=== PATIENT | male | born 1960 | race Caucasian/White ===

== ENCOUNTER → 2016-05-11 | Outpatient (CLI) | payer BC ==
--- NOTE | 2016-05-11 20:38 | PN ---
DATE OF SERVICE: 05/11/2016 This patient is a 55-year-old gentleman who has been followed in the sleep center for treatment of obstructive sleep apnea/hypopnea syndrome. I discussed results of his sleep studies with the patient in detail. Diagnostic sleep study showed apnea-hypopnea index of 11.7 with 85 episodes of obstructive apneas, 7 episodes of central apneas, and 1 episode of hypopnea, with lowest oxygen level 80%. At present the patient is on treatment with CPAP at the pressure 13 cm of water. At the beginning of treatment, patient did not demonstrate good compliance with treatment. Usage was low. But for the last month he has improved his usage up to 87% of the time with usage for more than 4 hours. I checked the reading from his machine. It shows that in the first half of the last month, the patient had very high apnea-hypopnea indices. In the second part of the last month, there is improvement in the apnea-hypopnea indices for most of the days. For the whole month, apnea-hypopnea index is above normal at 9.5. The patient still feels sleepiness during the day. [place] Sleepiness Scale is 12. I checked the leak from the patient's unit, and in the middle of the last month the leak was increased. At the end of the month there was no significant leak. MEDICATIONS: 1. Lexapro. 2. Wellbutrin. 3. Ritalin. 4. Prilosec. 5. Ambien. 6. Zocor. 7. Allergy medications. During physical exam, patient in no distress. VITAL SIGNS: BP 133/90, HR 72, RR 16. Weight 202. Temperature 98.0. Oxygen saturation at room air 99%. HEENT: PERRLA, EOMI. Evaluation of oropharynx showed extremely low position of soft palate. NECK: Supple. No JVD. Thyroid is not palpable. LUNGS: Clear to percussion and to auscultation. Good air exchange. No wheezing or rhonchi. HEART: S1, S2 regular. No murmurs, gallops or rubs. ABDOMEN: Soft and nontender. Bowel sounds are present. No organomegaly appreciated. EXTREMITIES: No clubbing or cyanosis. SPRING WINDER: Awake, alert, and oriented x3. Cranial nerves 2 to 7 intact. There is no fasciculation or atrophy noted. No focal deficits observed. IMPRESSION: 1. Obstructive sleep apnea/hypopnea syndrome. For the last month patient demonstrated good compliance with treatment. For the first half of the last month, patient continued to have significant respiratory abnormalities, which significantly improved during the second part of the last month, possibly because patient's mask was changed at that time. 2. Patient still continues to have some sleepiness. [place] Sleepiness Scale is 12. 3. Moderate periodic limb movements during titration. 4. Status post uvulopalatopharyngoplasty. 5. History of attention deficit hyperactivity disorder. Patient is on treatment with Ritalin. 6. Overweight. 7. Depression. 8. Acid reflux. 9. Allergies. 10. Hyperlipidemia. 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 PLAN: 1. We will change CPAP unit to ( ) regimen from the pressure of 5 up to the pressure of 18 cm of water. 2. Patient should continue to use equipment every night for the whole night. 3. I will see the patient for follow-up visit in 4 to 6 weeks. 4. No driving if feeling any sleepiness. Thank you very much for allowing me to participate in the management of your patient. Sincerely, Adam Lindsey MD, PhD, FAASM. Diplomat of [place] [employer], Sleep Medicine Board by [employer] [employer], [place] [employer]
== END | disposition home or self-care (01) ==
LOC: SLEEP 15:32
PROVIDERS: ATTEND Internal Medicine
DX: G47.33 Obstructive sleep apnea (adult) (pediatric) (principal); Z79.899 Other long term (current) drug therapy; Z98.890 Other specified postprocedural states; F90.9 Attention-deficit hyperactivity disorder, unspecified type; E66.3 Overweight; F32.9 Major depressive disorder, single episode, unspecified; K21.9 Gastro-esophageal reflux disease without esophagitis; Z91.09 Other allergy status, other than to drugs and biological substances; E78.5 Hyperlipidemia, unspecified

== ENCOUNTER → 2016-06-22 | Outpatient (CLI) | payer BC ==
--- NOTE | 2016-06-22 23:21 | PN ---
DATE OF SERVICE: 06/22/2016 This patient is a 55-year-old gentleman who has been followed in the sleep center for treatment of obstructive sleep apnea/hypopnea syndrome. Before patient was at the pressure of 13 cm of water. At that pressure, apnea-hypopnea index was above normal at 9.5. I changed his regimen to automatic in the range of 5 to 18 cm of water. Today I checked his unit. Usage for more than 4 hours is 17 out of 39, which is slightly below standard recommendations. But with this regimen, most of the time pressure was in the range of 16 cm of water and leak was only 5 L/minute, which is in good range. Apnea-hypopnea index was 6.4, which is close to the good range. Patient used it for 23 out of 30 nights total. He indicates that he feels that the pressure is not enough when he is using the machine. MEDICATIONS: 1. Lexapro. 2. Wellbutrin. 3. Ritalin. 4. Prilosec. 5. Ambien. 6. Zocor. 7. Medications for allergies. PHYSICAL EXAMINATION: Patient in no distress. VITAL SIGNS: BP 116/78, HR 64, RR 16. Weight 202. Temperature 97.8. Oxygen saturation 97%. HEENT: PERRLA, EOMI. Evaluation of oropharynx showed tongue protrudes midline; low position of soft palate. NECK: Supple. No JVD. Thyroid is not palpable. LUNGS: Clear to percussion and to auscultation. Good air exchange. No wheezing or rhonchi. HEART: S1, S2 regular. No murmurs, gallops or rubs. ABDOMEN: Slightly obese. EXTREMITIES: No clubbing or cyanosis. MILLING OPERATOR: Awake, alert, and oriented x3. Cranial nerves 2 to 7 intact. There is no fasciculation or atrophy noted. No focal deficits observed. IMPRESSION: 1. Obstructive sleep apnea/hypopnea syndrome, mostly controlled with the auto regimen. According to the machine, pressure in the range of 16 is the working pressure. Patient is benefitting from treatment. 2. Moderate PLMS. 3. Status post UPPP. 4. History of attention deficit hyperactivity disorder. 5. Depression. 6. Acid reflux. 7. Allergies. 8. Hyperlipidemia. 9. 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 PLAN: 1. I just lowered pressure in the machine to a minimum of 5 up to ( ) 9 cm of water. 2. Patient should continue to use equipment every night for the whole night. Present usage hours is 5.9 hours. Possibly patient may not get enough sleep, so we discussed with him. My recommendation is to sleep at least 7-1/2 hours per night with usage of the machine all the time. 3. No driving if feeling any sleepiness. Thank you very much for allowing me to participate in the management of your patient. Sincerely, Adam Lindsey MD, PhD, FAASM. Diplomat of [place] [employer] [employer], Sleep Medicine Board by [place] [employer], [place] [employer]
== END | disposition home or self-care (01) ==
LOC: SLEEP 15:48
PROVIDERS: ATTEND Internal Medicine
DX: G47.33 Obstructive sleep apnea (adult) (pediatric) (principal); F90.9 Attention-deficit hyperactivity disorder, unspecified type; F32.9 Major depressive disorder, single episode, unspecified; K21.9 Gastro-esophageal reflux disease without esophagitis; Z91.09 Other allergy status, other than to drugs and biological substances; E78.5 Hyperlipidemia, unspecified; Z98.890 Other specified postprocedural states; Z79.899 Other long term (current) drug therapy

== ENCOUNTER → 2017-05-29 | Outpatient (CLI) | payer BC ==
--- NOTE | 2017-05-29 21:31 | CT ---
EXAMINATION TYPE: CT abdomen pelvis w con DATE OF EXAM: 05/29/2017 COMPARISON: 10/01/2015 HISTORY: 56-year-old male Hematuria and LLQ pain TECHNIQUE: Contiguous axial scanning of the abdomen and pelvis following administration of 100 ml Omn ipaque 300 IV contrast. Delayed images through the kidneys and coronal/sagittal reconstructions perf ormed. CT DLP: 1185 mGycm Automated exposure control for dose reduction was used. FINDINGS: Heart normal size without pericardial effusion. Lung bases clear without pleural effusion. There appears to have been prior Reji fundoplication. Annular narrowing of the distal stomach supriya tible with peristalsis. The appearance is improved on the delayed kidney images. No focal liver lesion or biliary ductal dilatation. Portal venous system appears patent. Cholecystectomy clips. Adrenal glands, spleen, and pancreas appear within normal limits. A 1.3 cm cortical hypodensity anterior upper pole right kidney has enlarged slightly from 2016 where it measured 8 mm, still suggestive of a cortical cyst. 2 subcentimeter hypodensities on the right and one on the left seems to be new and are too small for accurate CT characterization but also suggesti ve of cysts. Symmetric uptake and excretion of contrast from both kidneys. No nephrolithiasis seen. Mild atherosclerotic calcifications within the abdominal aorta without aneurysm. No dilated small bowel, free fluid, or free air. A couple right lower quadrant and mid lower mesenteric lymph nodes are borderline enlarged and 7 mm, axial image 55 and 58, larger as compared to 2016. Otherwise, no mesenteric or retroperitoneal lympha denopathy. Oral contrast has progressed to the distal third transverse colon. Mild scattered stool. No pericolon ic inflammatory change. Mild circumferential bladder wall thickening. Prostate gland mildly prominent at 4.3 cm wide. Pelvic phleboliths are noted. No abnormal fluid collection in the pelvis or pelvic lymphadenopathy. Bones: Mild degenerative changes of the hips. Degenerative disc disease lower lumbar spine and endpla te spondylosis lower thoracic spine. No osseous destructive process. IMPRESSION: 1. MILD CIRCUMFERENTIAL BLADDER WALL THICKENING COULD REPRESENT CYSTITIS OR CHRONIC BLADDER WALL HYPE RTROPHY. 2. A 1.3 CM RIGHT UPPER POLE CORTICAL CYST HAS ENLARGED FROM 2016 WHERE IT MEASURED 8 MM. A FEW ADDIT IONAL TINY SUBCENTIMETER HYPODENSITIES ON BOTH SIDES ARE TOO SMALL FOR ACCURATE CT CHARACTERIZATION, ARE NEW FROM 2016, BUT STILL MOST LIKELY REPRESENT CYSTS. 3. A COUPLE NEW BORDERLINE SIZED RIGHT LOWER QUADRANT AND LOWER MID MESENTERIC LYMPH NODES MEASURING UP TO 7 MM LIKELY REACTIVE/POST INFLAMMATORY. A 3 - 6 MONTH FOLLOW-UP CAN BE CONSIDERED A PRECAUTI ONARY MEASURE TO ENSURE STABILITY/RESOLUTION. 4. STATUS POST REJI FUNDOPLICATION AND CHOLECYSTECTOMY.
== END | disposition home or self-care (01) ==
LOC: RADCTMAIN 16:25
PROVIDERS: ATTEND Family Medicine
DX: N28.1 Cyst of kidney, acquired (principal); N32.89 Other specified disorders of bladder; R93.421 Abnormal radiologic findings on diagnostic imaging of right kidney; Z90.49 Acquired absence of other specified parts of digestive tract; Z98.890 Other specified postprocedural states
CPT/HCPCS: 74177; Q9967

== ENCOUNTER → 2017-09-10 | Outpatient (CLI) | payer BC ==
--- NOTE | 2017-09-10 17:40 | MR ---
EXAMINATION TYPE: MR cervical spine wo/w con DATE OF EXAM: 09/10/2017 COMPARISON: NONE HISTORY: Cervicalgia TECHNIQUE: Multiplanar, multisequence images of the cervical spine were acquired utilizing 10 mL intravenous Brannon avist gadolinium contrast. Diffusion weighted imaging was performed. Cervical fusion of C5 and C6 is present. C2-C3: No evidence for degenerative disc disease. No disc bulge/herniation or protrusion. No Canal stenosis. Foramina are patent bilaterally. C3-C4: No evidence for degenerative disc disease. No disc bulge/herniation or protrusion. No Canal stenosis. Foramina are patent bilaterally. C4-C5: There is mild endplate spurring or protrusion of disc at C4-5 with mild anterior thecal sac co ntact. No cord contact is evident. No spinal canal stenosis or neural foraminal stenosis is present C5-C6: Disc material is not identified. No anterior thecal sac compression or cord contact is evident . There may be some foraminal narrowing. Susceptibility artifact causing some limitation. C6-C7: No evidence for degenerative disc disease. No disc bulge/herniation or protrusion. No Canal stenosis. Foramina are patent bilaterally. C7-T1: No evidence for degenerative disc disease. No disc bulge/herniation or protrusion. No Canal stenosis. Foramina are patent bilaterally. Cervical segments are intact. There is normal alignment. Cervical spinal cord is of normal signal. Craniovertebral junction relationships are within normal limits. Normal enhancement is present. No abnormal enhancement is identified IMPRESSION: 1. Post anterior cervical fusion C5-6. 2. Mild central endplate spurring or disc protrusion C4-5 mild anterior thecal sac compression. No co rd contact is evident.
== END | disposition home or self-care (01) ==
LOC: RADMRIMAIN 07:14
PROVIDERS: ATTEND Family Medicine
DX: M54.2 Cervicalgia (principal); Z98.1 Arthrodesis status
CPT/HCPCS: 72156; A9581

== ENCOUNTER 2017-11-12 19:19 | Emergency (ER) | payer BC ==
[2017-11-12 20:22] VITALS: RESP 18
[2017-11-12] MEDS ORDERED: SODIUM CHLORIDE 0.9% 1,000 ML IV STA (22:26)
[2017-11-12 23:03] LABS: Appearance,Urine Clear (Clear); Bilirubin,Urine Negative (Negative); Blood,Urine Negative (Negative); Color,Urine Yellow; Glucose,Urine (UA) Negative (Negative); Ketones,Urine Negative (Negative); Leukocyte Esterase,Urine Negative (Negative); Nitrite,Urine Negative (Negative); PH, Urine 5.5 (5.0-8.0); Protein,Urine Negative (Negative); Urobilinogen,Urine <2.0 mg/dL (<2.0)
[2017-11-12 23:04] LABS: Basophils % (A) 1 %; Eosinophils # (A) 0.3 k/uL (0-0.7); Eosinophils % (A) 4 %; HCT 52.1 % (39.0-53.0); Lymphocytes # (A) 2.7 k/uL (1.0-4.8); Lymphocytes % (A) 37 %; MCH 30.5 pg (25.0-35.0); MCHC 32.5 g/dL (31.0-37.0); MCV 93.8 fL (80.0-100.0); Mean Platelet Volume 7.1; Monocytes # (A) 0.3 k/uL (0-1.0); Monocytes % (A) 4 %; Neutrophils # (A) 3.7 k/uL (1.3-7.7); Neutrophils % (A) 52 %; Platelet Count 200 k/uL (150-450); RBC 5.56 m/uL (4.30-5.90); RDW 13.1 % (11.5-15.5); WBC 7.1 k/uL (3.8-10.6)
[2017-11-12 23:12] LABS: Albumin 4.1 g/dL (3.5-5.0); Calcium 9.4 mg/dL (8.4-10.2); Potassium 4.9 mmol/L (3.5-5.1); Total Bilirubin 2.2 mg/dL (0.2-1.3); Total Protein 7.3 g/dL (6.3-8.2)
--- NOTE | 2017-11-12 23:40 | XR ---
EXAMINATION TYPE: XR KUB DATE OF EXAM: 11/12/2017 COMPARISON: NONE HISTORY: Pain TECHNIQUE: 2 views FINDINGS: There is no sign of intestinal obstruction or pneumoperitoneum. Fecal pattern is normal. Th ere are clips from cholecystectomy. There are multiple clips in the upper quadrant. Lung bases are cl ear. IMPRESSION: Nonacute abdomen.
--- NOTE | 2017-11-13 00:17 | ED ---
Back Pain HPI - General Chief Complaint: Back Pain/Injury Stated Complaint: Groin Pain Time Seen by Provider: 11/12/17 21:58 Source: patient Limitations: no limitations - History of Present Illness Initial Comments: 56-year-old male patient presents the emergency department today for complaints of left groin pain. Patient states the pain as a burning pain. Patient has had chronic low back issues since an injury earlier this year. Patient states he generally has pain in the left groin but today changed to a burning pain and got a little worse. Patient denies any numbness or tingling to his lower extremities. Denies any loss of bowel or bladder function. Denies any saddle anesthesia. Patient denies any pain radiation into his testicle. Denies any drainage from the penis, dysuria, or scrotal swelling. Patient has not had any fevers or chills. Denies any abdominal pain. States that he feels like his urine has been darker than usual and may have presence of blood. Patient denies any recent rash, shortness breath, chest pain, nausea, vomiting, diarrhea, constipation, back pain, numbness, tingling, dizziness, weakness, headache, visual changes, or any other complaints. - Related Data Home Medications Medication Instructions Recorded Confirmed Escitalopram [Lexapro] 20 mg PO DAILY 11/12/17 11/12/17 Levocetirizine Dihydrochloride 5 mg PO HS 11/12/17 11/12/17 [Xyzal] Methylphenidate HCl [Ritalin] 20 mg PO DAILY 11/12/17 11/12/17 OXcarbazepine [Trileptal] 150 mg PO HS 11/12/17 11/12/17 Omeprazole 40 mg PO HS 11/12/17 11/12/17 Simvastatin [Zocor] 20 mg PO HS 11/12/17 11/12/17 Zolpidem [Ambien] 10 mg PO HS 11/12/17 11/12/17 buPROPion [Wellbutrin] 200 mg PO DAILY 11/12/17 11/12/17 Allergies Allergy/AdvReac Type Severity Reaction Status Date / Time No Known Allergies Allergy Verified 11/12/17 22:06 Review of Systems ROS Statement: Those systems with pertinent positive or pertinent negative responses have been documented in the HPI. ROS Other: All systems not noted in ROS Statement are negative. Past Medical History Additional Past Medical History / Comment(s): chronic back pain History of Any Multi-Drug Resistant Organisms: None Reported Additional Past Surgical History / Comment(s): neck surgery Past Psychological History: Depression Smoking Status: Current every day smoker Past Alcohol Use History: None Reported Past Drug Use History: None Reported General Exam Limitations: no limitations General appearance: alert, in no apparent distress, other (This is a well- developed, well-nourished adult male patient in no acute distress. Vital signs upon presentation are temperature 98.5F, pulse 79, respirations 18, blood pressure 116/79, pulse ox 97% on room air.) Eye exam: Present: normal appearance, PERRL, EOMI. Absent: scleral icterus, conjunctival injection, periorbital swelling ENT exam: Present: normal exam, normal oropharynx, mucous membranes moist Respiratory exam: Present: normal lung sounds bilaterally. Absent: respiratory distress, wheezes, rales, rhonchi, stridor Cardiovascular Exam: Present: regular rate, normal rhythm, normal heart sounds. Absent: systolic murmur, diastolic murmur, rubs, gallop, clicks GI/Abdominal exam: Present: soft, normal bowel sounds. Absent: distended, tenderness, guarding, rebound, rigid, hernia Back exam: Present: normal inspection. Absent: CVA tenderness (R), CVA tenderness (L) Neurological exam: Present: alert, oriented X3, CN II-XII intact Psychiatric exam: Present: normal affect, normal mood Skin exam: Present: warm, dry, intact, normal color. Absent: rash Course Vital Signs 11/12/17 11/13/17 20:20 00:36 Temperature 98.5 F 97.8 F Pulse Rate 79 55 L Respiratory 18 18 Rate Blood Pressure 116/79 144/88 O2 Sat by Pulse 97 98 Oximetry Medical Decision Making - Medical Decision Making 56-year-old male patient presented to the emergency department today for evaluation of left groin pain. Physical examination was relatively unremarkable. Abdomen was soft and nontender. There is no evidence of hernia to the left groin region. Labs reviewed and were unremarkable. Urinalysis was negative. KUB x-ray showed overall nonobstructive bowel gas pattern. Do believe patient symptoms may be related to lumbar radiculopathy and chronic back issues. He is instructed to follow-up with his primary care physician for recheck in 1-2 days. He is instructed to discuss MRI as he has in the past. Return parameters discussed in detail. He verbalizes understanding and agrees with this plan. - Lab Data Result diagrams: 11/12/17 22:48 11/12/17 22:48 Lab Results 11/12/17 11/12/17 11/12/17 Range/Units 22:48 22:48 22:50 WBC 7.1 (3.8-10.6) k/uL RBC 5.56 (4.30-5.90) m/uL Hgb 17.0 (13.0-17.5) gm/dL Hct 52.1 (39.0-53.0) % MCV 93.8 (80.0-100.0) fL MCH 30.5 (25.0-35.0) pg MCHC 32.5 (31.0-37.0) g/dL RDW 13.1 (11.5-15.5) % Plt Count 200 (150-450) k/uL Neutrophils % 52 % Lymphocytes % 37 % Monocytes % 4 % Eosinophils % 4 % Basophils % 1 % Neutrophils # 3.7 (1.3-7.7) k/uL Lymphocytes # 2.7 (1.0-4.8) k/uL Monocytes # 0.3 (0-1.0) k/uL Eosinophils # 0.3 (0-0.7) k/uL Basophils # 0.0 (0-0.2) k/uL Sodium 141 (137-145) mmol/L Potassium 4.9 (3.5-5.1) mmol/L Chloride 106 (98-107) mmol/L Carbon Dioxide 28 (22-30) mmol/L Anion Gap 7 mmol/L BUN 18 (9-20) mg/dL Creatinine 1.15 (0.66-1.25) mg/dL Est GFR (CKD-EPI)AfAm 82 (>60 ml/min/1.73 sqM) Est GFR (CKD-EPI)NonAf 71 (>60 ml/min/1.73 sqM) Glucose 89 (74-99) mg/dL Calcium 9.4 (8.4-10.2) mg/dL Total Bilirubin 2.2 H (0.2-1.3) mg/dL AST 27 (17-59) U/L ALT 38 (21-72) U/L Alkaline Phosphatase 91 (38-126) U/L Total Protein 7.3 (6.3-8.2) g/dL Albumin 4.1 (3.5-5.0) g/dL Amylase 96 (30-110) U/L Lipase 201 (23-300) U/L Urine Color Yellow Urine Appearance Clear (Clear) Urine pH 5.5 (5.0-8.0) Ur Specific [place] 1.020 (1.001-1.035) Urine Protein Negative (Negative) Urine Glucose (UA) Negative (Negative) Urine Ketones Negative (Negative) Urine Blood Negative (Negative) Urine Nitrite Negative (Negative) Urine Bilirubin Negative (Negative) Urine Urobilinogen <2.0 (<2.0) mg/dL Ur Leukocyte Esterase Negative (Negative) - Radiology Data Radiology results: report reviewed, image reviewed Two-view x-ray of the abdomen is obtained. There is no sign of intestinal structure pneumoperitoneum. Fecal pattern is normal. There are clips from cholecystectomy. There are multiple clips in the upper quadrant. Lung bases are clear. Impression by Dr. Marroquin shows nonacute abdomen. Disposition Clinical Impression: Groin pain, Lumbar radiculopathy Disposition: HOME SELF-CARE Condition: Good Instructions: Lumbar Radiculopathy (ED) Additional Instructions: Follow-up with your primary care physician for recheck and to discuss possible MRI of the low back. Return here immediately for any new, worsening, or concerning symptoms. Is patient prescribed a controlled substance at d/c from ED?: No Referrals: Alize Michaels DO [Primary Care Provider] - 1-2 days Time of Disposition: 00:17
[2017-11-13 00:37] VITALS: BP 144/88; PULSE 55; TEMP 97.8
== END 2017-11-13 00:37 | disposition home or self-care (01) ==
LOC: EC 19:19
DX: M54.16 Radiculopathy, lumbar region (principal); R10.32 Left lower quadrant pain; F32.9 Major depressive disorder, single episode, unspecified; F17.200 Nicotine dependence, unspecified, uncomplicated; Z79.899 Other long term (current) drug therapy
CPT/HCPCS: 36415; 74018; 80053; 81003; 82150; 83690; 85025; 96360; 99283

== ENCOUNTER → 2017-12-12 | Outpatient (CLI) | payer BC ==
--- NOTE | 2017-12-12 16:31 | MR ---
EXAMINATION TYPE: MR lumbar spine wo con DATE OF EXAM: 12/12/2017 COMPARISON: CT abdomen pelvis 05/29/2017 HISTORY: Low back pain TECHNIQUE: Multiplanar, multisequence images of the lumbar spine were acquired. L1-L2: Normal disc appearance without desiccation. No herniation, protrusion or disc bulging. No ca nal stenosis is present. Foramina are patent bilaterally. L2-L3: Broad-based posterior disc bulge causes mild anterior mass effect on the thecal sac. There is some facet arthropathy change present. No significant central stenosis. No significant foraminal encr oachment.. L3-L4: Broad-based posterior disc bulge causes mild anterior mass effect on the thecal sac. There is mild facet arthropathy with hypertrophy of ligamentum flavum. Short pedicles thought to contribute to cause some foraminal encroachment due to circumferential extension of endplate disc bulge bilaterall y. No significant central stenosis. L4-L5: Broad-based posterior disc bulge causes mild anterior mass effect on the thecal sac, no signif icant central stenosis. Minimal retrolisthesis grade 1 L4-5. Circumferential extension of endplate di sc complex results in bilateral foraminal encroachment, short pedicles may contribute to the stenosis of the foramina. There is some facet arthropathy with hypertrophy of the ligamentum flavum causing p osterior lateral mass effect on the thecal sac. L5-S1: Posterior extension of endplate disc complex may contact the proximal S1 nerve root, anterior thecal sac. Circumferential extension of endplate disc complex results in foraminal encroachment bila terally. There is some facet arthropathy change. No significant central stenosis. Minimal retrolisthe sis grade 1 L5-S1. Lumbar segments are intact. No paraspinal masses are identified. Conus medullaris has a normal appe arance. Lumbar vertebral bodies show preserved height. There is multilevel spondylosis with minimal e ndplate discogenic marrow signal change. Some loss of disc height signal at L5-S1 compatible with dis c desiccation and degenerative disc disease, loss of disc signal also present L4-5, L3-4, T12-L1. Cor tical cyst associated with the right kidney and left kidney. IMPRESSION: Degenerative disc disease and facet arthropathy, foraminal encroachment as described.
== END | disposition home or self-care (01) ==
LOC: RADMRIMAIN 15:36
PROVIDERS: ATTEND Family Medicine
DX: M51.36 Other intervertebral disc degeneration, lumbar region (principal); M46.96 Unspecified inflammatory spondylopathy, lumbar region
CPT/HCPCS: 72148

== ENCOUNTER → 2018-04-24 | Outpatient (CLI) | payer BC ==
--- NOTE | 2018-04-24 16:13 | NM ---
EXAMINATION TYPE: NM bone scan whole body DATE OF EXAM: 04/24/2018 COMPARISON: MR cervical spine 09/10/2017 HISTORY: Cervical spondylosis without myelopathy Delayed whole-body scanning was performed following the injection of 23.85 mCi Tc 99m MDP. Images ac quired 3 hours post injection. Small regvg-ic-xcay images obtained of the cervical, thoracic spine. FINDINGS: Uptake is noted within the shoulders, sternoclavicular joints, wrists, knees which is likely due to d egenerative change. Uptake in the maxilla and mandible likely due to periodontal disease. Uptake in t he posterior elements of the cervical spine likely due to facet arthropathy, some mild anterior uptak e may be due to cervical spondylosis. Soft tissue uptake is normal. IMPRESSION: Findings compatible with patient's history. Degenerative changes, facet arthropathy.
== END | disposition home or self-care (01) ==
LOC: RADNMMAIN 09:54
DX: M47.812 Spondylosis without myelopathy or radiculopathy, cervical region (principal); M46.92 Unspecified inflammatory spondylopathy, cervical region
CPT/HCPCS: 78306; A9503

== ENCOUNTER 2018-05-02 07:56 | Outpatient (CLI) | payer BC ==
[~2018-05-02 07:56] MED LIST: PREMYELOGRAM MEDICATION REVIEW 1 EACH MISC PO PRN
[2018-05-02 08:24] VITALS: TEMP 97.8
[2018-05-02] MEDS ORDERED: DIAZEPAM 5 MG TAB PO STA (08:30)
[2018-05-02 10:05] VITALS: RESP 16
--- NOTE | 2018-05-02 10:34 | FL ---
Myelogram HISTORY: Cervical spondylosis without myelopathy EXAMINATION TYPE: FL myelogram cervical DATE OF EXAM: 05/02/2018 Maximal barrier technique was utilized. The skin overlying the L3 transverse process was localized u nder fluoroscopy and the overlying skin prepped and draped. Lidocaine used for local anesthesia. 22 -gauge needle was advanced into the thecal sac under fluoroscopic guidance and cerebrospinal fluid wa s noted to return in the hub of the needle. Approximately 12 cc of Isovue 300M was injected intrathe kusum under intermittent fluoroscopic observation. A spot image verified needle placement. Following head down position on the table spot image obtained over the cervical spine. The patient remained in stable condition, the needle was removed. Hemostasis achieved. No immediate complication. 2 intraoperative images. 2 minutes 56 seconds fluoroscopy time. FINDINGS: L3 puncture. No evident extravasation. Postop changes noted in the lower cervical spine. See dictated report CT cervical spine same date. IMPRESSION: Postop changes, see dictated report same date CT cervical spine.
[2018-05-02 10:41] VITALS: PULSE 70
--- NOTE | 2018-05-02 10:45 | CT ---
CT cervical spine HISTORY: Post myelographic CT, cervical spondylosis without myelopathy Helical acquisition through the cervical spine. Patient is status post anterior cervical fusion and discectomy at C5-6. Spondylosis is present at C3- 4, C4-5, C6-7 with associated loss of disc height. There is no significant spinal stenosis. Cervical cord shows an unremarkable appearance. Cervical vertebral bodies show preserved height and alignment. Bone mineralization is normal. C2-3: No significant foraminal encroachment, disc herniation, or central stenosis. C3-4: Uncovertebral joint hypertrophy causes foraminal encroachment right greater than left. No disc herniation or central canal stenosis. C4-5: Hypertrophic change results in some left-sided foraminal encroachment. No central stenosis or e vident disc herniation. C5-6: No evident disc herniation or significant foraminal encroachment. Posterior extension of endpla te results in some mild anterior mass effect on the thecal sac. C6-7: Bilateral foraminal encroachment present due to hypertrophic changes right greater than left, n o central stenosis or disc herniation C7-T1: Unremarkable IMPRESSION: Postop changes, multilevel foraminal encroachment. No evident disc herniation. Degenerati ve disc disease.
[2018-05-02 11:47] VITALS: BP 132/76
== END 2018-05-02 12:02 | disposition home or self-care (01) ==
LOC: RADPROMAIN 07:56
DX: M50.30 Other cervical disc degeneration, unspecified cervical region (principal); Z98.890 Other specified postprocedural states
CPT/HCPCS: 62302; 72126; Q9967

== ENCOUNTER 2020-12-16 07:35 | Day surgery (SDC) | payer BC, MEDICARE ==
[2020-12-13 13:25] VITALS: BMI 34.9
[~2020-12-16 07:35] MED LIST changes: +LACTATED RINGERS 1,000 ML IV SCH; -PREMYELOGRAM MEDICATION REVIEW 1 EACH MISC PO PRN
[2020-12-16 08:08] VITALS: TEMP 97.6
[2020-12-16] MEDS ORDERED: LIDOCAINE 1% (10MG/ML) FOR IV START INTRADERMA ONE (08:10)
--- NOTE | 2020-12-16 09:06 | P.GSHP ---
History of Present Illness H&P Date: 12/16/20 Chief Complaint: Screening colonoscopy This is a 60-year-old male with PSA for screening colonoscopy. Patient denies a significant GI complaints. Past Medical History Past Medical History: Sleep Apnea/CPAP/BIPAP Additional Past Medical History / Comment(s): SLEEP APNEA-NO MACHINE. History of Any Multi-Drug Resistant Organisms: None Reported Past Surgical History: Cholecystectomy, Orthopedic Surgery Additional Past Surgical History / Comment(s): CERVICAL FUSION, "WRAP " FOR GERD (DEIDRE)., RIGHT KNEE ARTHROSCOPY. Past Anesthesia/Blood Transfusion Reactions: No Reported Reaction Past Psychological History: Depression Smoking Status: Current every day smoker Past Alcohol Use History: None Reported Additional Past Alcohol Use History / Comment(s): SMOKES 1/2 PPD, STARTED SMOKING AGE 17. Past Drug Use History: None Reported - Past Family History Father Family Medical History: Cancer Additional Family Medical History / Comment(s): PROSTATE AND LUNG CANCER Medications and Allergies Home Medications Medication Instructions Recorded Confirmed Type Escitalopram [Lexapro] 20 mg PO DAILY 11/12/17 12/16/20 History Simvastatin [Zocor] 40 mg PO DAILY 11/12/17 12/16/20 History buPROPion [Wellbutrin] 200 mg PO DAILY 11/12/17 12/16/20 History Aspirin 81 mg PO DAILY 04/25/18 12/13/20 History lamoTRIgine [LaMICtal] 100 mg PO HS 04/25/18 12/16/20 History Multivitamins, Thera [Multivitamin 1 tab PO DAILY 12/13/20 12/13/20 History (formulary)] QUEtiapine FUMARATE [SEROquel] 300 mg PO HS 12/13/20 12/16/20 History Allergies Allergy/AdvReac Type Severity Reaction Status Date / Time No Known Allergies Allergy Verified 12/16/20 08:09 Surgical - Exam Vital Signs Temp Pulse Resp BP Pulse Ox 97.6 F 81 18 140/81 93 L 12/16/20 08:06 12/16/20 08:06 12/16/20 08:06 12/16/20 08:06 12/16/20 08:06 - General well developed, well nourished, no distress - Eyes PERRL - ENT normal pinna - Neck no masses - Respiratory normal expansion - Cardiovascular Rhythm: regular - Abdomen Abdomen: soft, non tender Assessment and Plan Assessment: We'll perform screening colonoscopy.
[2020-12-16] MEDS ORDERED: LIDOCAINE 1% INJ 10MG/ML (20 ML MDV) ONE (09:12)
[2020-12-16] MEDS ORDERED: PROPOFOL 10 MG/ML 20 ML VIAL IV ONE (09:12)
--- NOTE | 2020-12-16 09:18 | P.OP ---
Date of Procedure: 12/16/20 Preoperative Diagnosis: Screening colonoscopy Postoperative Diagnosis: External hemorrhoids Procedure(s) Performed: Colonoscopy Anesthesia: MAC Surgeon: Yariel Osorio Pathology: none sent Condition: stable Disposition: PACU Description of Procedure: PROCEDURE: The patient was placed on the endoscopy table in the lateral position. Digital rectal examination was performed which revealed external hemorrhoids. The prostate was symmetrical without nodules. Flexible colonoscope was then placed in the patient's anus and passed throughout the entire colon. The ileocecal valve was visualized. The cecum, ascending, transverse, descending and sigmoid colon were normal. The rectum was normal as well. There were no masses, polyps or diverticula noted in the entire colon.
[2020-12-16 09:42] VITALS: BP 142/95; PULSE 72; RESP 16
== END 2020-12-16 10:01 | disposition home or self-care (01) ==
LOC: ORWHC2ENDO 07:35
PROVIDERS: ATTEND Surgery
DX: Z12.11 Encounter for screening for malignant neoplasm of colon (principal); K64.4 Residual hemorrhoidal skin tags; F17.210 Nicotine dependence, cigarettes, uncomplicated; G47.30 Sleep apnea, unspecified; K21.9 Gastro-esophageal reflux disease without esophagitis; Z80.1 Family history of malignant neoplasm of trachea, bronchus and lung; Z80.42 Family history of malignant neoplasm of prostate; Z90.49 Acquired absence of other specified parts of digestive tract; Z79.82 Long term (current) use of aspirin; Z79.899 Other long term (current) drug therapy
CPT/HCPCS: J2001; J2704; G0121

== ENCOUNTER → 2022-04-21 | Outpatient (CLI) | payer MEDICARE ==
--- NOTE | 2022-04-21 09:55 | CTL ---
EXAMINATION TYPE: CT Low Dose Lung DATE OF EXAM ORDERED: 04/21/2022 HISTORY: Long-term tobacco use. Lung cancer screening CT DLP: 109.[address] CTDI: 3.0 mGy Automated exposure control for dose reduction was used. SCREENING VISIT: Baseline COMPARISON: None TECHNIQUE: Low dose computed tomography scan was performed through the chest at 1 mm thick sections a nd reconstructed images in multiple planes at 1 mm and [address] DIAGNOSTIC QUALITY: Satisfactory FINDINGS: LUNG NODULES: Present, detailed below: Occasional scattered small nodule. For reference 2 mm peripheral left lower lobe nodule axial image 1 87. For reference there is 3 to 4 mm posterior inferior right upper lobe nodule axial image 99. No si gnificant greater than 5 mm noncalcified pulmonary nodules. LUNGS: COPD: Severity: None Fibrosis: Severity: None Lymph nodes: No greater than 1 cm Other findings: None RIGHT PLEURAL SPACE: Effusion: None Calcification: None Thickening: None Pneumothorax: None LEFT PLEURAL SPACE: Effusion: None Calcification: None Thickening: None Pneumothorax: None HEART: Heart Size: Normal Coronary Calcification: Mild Pericardial Effusion: None OTHER FINDINGS: Upper abdomen: Cholecystectomy clips are redemonstrated. Bony thorax: Anterior fusion plate in the cervical spine is identified on localizer. Supraclavicular region: None Other: None IMPRESSION: Few scattered small nodules. No significant greater than [address] LUNG RAD AND CT CHEST RECOMMENDATION: Lung-Rad 2 Benign Appearance or Behavior: Continue annual sc reening with LDCT in 12 months. S Modifier (other clinically significant findings): None
== END | disposition home or self-care (01) ==
LOC: RADCTMAIN 09:13
PROVIDERS: ATTEND Family Medicine
DX: Z12.2 Encounter for screening for malignant neoplasm of respiratory organs (principal); R91.8 Other nonspecific abnormal finding of lung field; Z87.891 Personal history of nicotine dependence
CPT/HCPCS: 71271

== ENCOUNTER 2022-07-13 11:20 | Inpatient (IN) | payer MEDICARE ==
--- NOTE | 2022-07-13 11:33 | ED ---
General Adult HPI - General Chief complaint: Chest Pain Stated complaint: Chest pain Time Seen by Provider: 07/13/22 11:26 Source: patient, RN notes reviewed Limitations: no limitations - History of Present Illness Initial comments: Patient is a pleasant 61-year-old male presenting to the emergency department chest discomfort. Patient states symptoms have been going on for several weeks. Patient was in the hospital for EGD to check for hernia. Patient started developing chest discomfort. Patient has some mild associated dyspnea with this. Discomfort is rated 8/10. Discomfort feels like pressure without radiation. No leg pain or leg swelling. No history of previous cardiac disease. - Related Data Home Medications Medication Instructions Recorded Confirmed Simvastatin [Zocor] 40 mg PO HS 11/12/17 07/10/22 buPROPion [Wellbutrin] 200 mg PO QA 11/12/17 07/10/22 Aspirin 81 mg PO DAILY 04/25/18 07/10/22 lamoTRIgine [LaMICtal] 200 mg PO HS 04/25/18 07/10/22 Multivitamins, Thera [Multivitamin 1 tab PO DAILY 12/13/20 07/10/22 (formulary)] QUEtiapine FUMARATE [SEROquel] 300 mg PO HS 12/13/20 07/10/22 Omeprazole 40 mg PO HS 07/10/22 07/10/22 Allergies Allergy/AdvReac Type Severity Reaction Status Date / Time No Known Allergies Allergy Verified 07/10/22 15:53 Review of Systems ROS Statement: Those systems with pertinent positive or pertinent negative responses have been documented in the HPI. ROS Other: All systems not noted in ROS Statement are negative. Constitutional: Denies: fever Eyes: Denies: eye pain ENT: Denies: ear pain Respiratory: Reports: as per HPI Cardiovascular: Reports: as per HPI, chest pain Endocrine: Denies: fatigue Gastrointestinal: Denies: abdominal pain Genitourinary: Denies: dysuria Past Medical History Past Medical History: GERD/Reflux, Hyperlipidemia, Sleep Apnea/CPAP/BIPAP Additional Past Medical History / Comment(s): SLEEP APNEA-NO MACHINE. History of Any Multi-Drug Resistant Organisms: None Reported Past Surgical History: Cholecystectomy, Orthopedic Surgery Additional Past Surgical History / Comment(s): CERVICAL FUSION, "WRAP " FOR GERD (DEIDRE). RIGHT KNEE ARTHROSCOPY. Past Anesthesia/Blood Transfusion Reactions: No Reported Reaction Past Psychological History: Depression Smoking Status: Former smoker Past Alcohol Use History: None Reported Past Drug Use History: None Reported - Past Family History Mother Family Medical History: Cancer Father Family Medical History: Cancer General Exam Limitations: no limitations General appearance: alert, in no apparent distress Head exam: Present: normocephalic Eye exam: Present: normal appearance Neck exam: Present: normal inspection Respiratory exam: Present: normal lung sounds bilaterally Cardiovascular Exam: Present: tachycardia Expanded Peripheral pulses: 2+: Radial (R), Radial (L), Dorsalis Pedis (R), Dorsalis Pedis (L) GI/Abdominal exam: Present: soft. Absent: tenderness Extremities exam: Present: normal inspection Neurological exam: Present: alert Psychiatric exam: Present: normal affect, normal mood Skin exam: Present: normal color Course Vital Signs 07/13/22 07/13/22 07/13/22 11:28 11:30 12:01 Temperature 98 F Pulse Rate 144 H 144 H 90 Respiratory 22 20 20 Rate Blood Pressure 124/92 134/80 119/80 O2 Sat by Pulse 97 97 96 Oximetry - Reevaluation(s) Reevaluation #1: 07/13/22 11:40 Case was discussed with Dr. Wheeler who will have Suzanne come evaluate the patient. 07/13/22 12:37 Repeat EKG shows atrial flutter with a rate of 81. Normal axis. Normal QRS. Nonspecific ST-T. EKG Findings - EKG Results: EKG: interpreted by ERMD (Atrial flutter. Inferior Q waves. Nonspecific ST- T.), normal axis Medical Decision Making - Medical Decision Making Was pt. sent in by a medical professional or institution (, PA, MANAGER LOCAL, urgent care, hospital, or residential...) When possible be specific @ -Patient was in endoscopy and sent to emergency department Did you speak to anyone other than the patient for history (EMS, parent, family, police, friend...)? What history was obtained from this source @ -Nurse from endoscopy help provide history Did you review nursing and triage notes (agree or disagree)? Why? @ -I reviewed and agree with nursing and triage notes Were old charts reviewed (outside hosp., previous admission, EMS record, old EKG, old radiological studies, urgent care reports/EKG's, residential records)? Report findings @ -No old charts were reviewed Differential Diagnosis (chest pain, altered mental status, abdominal pain women, abdominal pain men, vaginal bleeding, weakness, fever, dyspnea, syncope, headache, dizziness, GI bleed, back pain, seizure, CVA, palpatations, mental health)? @ EKG interpreted by me (3pts min.). @ -As above X-rays interpreted by me (1pt min.). @ -Chest x-ray shows no acute process CT interpreted by me (1pt min.). @ -None done U/S interpreted by me (1pt. min.). @ -None done What testing was considered but not performed or refused? (CT, X-rays, U/S, l abs)? Why? @ -None What meds were considered but not given or refused? Why? @ -None Did you discuss the management of the patient with other professionals (professionals i.e. , PA, MANAGER LOCAL, lab, RT, psych nurse, social services specialist, thread cutter, teacher, safety and security officer, piano case maker)? Give summary @ -Case was discussed with Dr. Khalil, who will admit Was smoking cessation discussed for >3mins.? @ -No Was critical care preformed (if so, how long)? @ -32 minutes of critical care time was performed Were there social determinants of health that impacted care today? How? (Homelessness, low income, unemployed, alcoholism, drug addiction, transportation, low edu. Level, literacy, decrease access to med. care, [facility], rehab)? @ -No Was there de-escalation of care discussed even if they declined (Discuss DNR or withdrawal of care, Hospice)? DNR status @ -No What co-morbidities impacted this encounter? (DM, HTN, Smoking, COPD, CAD, Cancer, CVA, ARF, Chemo, Hep., AIDS, mental health diagnosis, sleep apnea, morbid obesity)? @ -None Was patient admitted / discharged? Hospital course, mention meds given and route, prescriptions, significant lab abnormalities, going to OR and other pertinent info. @ -Patient reevaluated. Rate is significantly improved. Patient symptoms are mildly improved. Cardiology was previously notified. Case also discussed with Dr. Patel who will admit. Patient will be started on heparin drip. Patient is currently on Cardizem drip. Undiagnosed new problem with uncertain prognosis? @ -No Drug Therapy requiring intensive monitoring for toxicity (Heparin, Nitro, Insulin, Cardizem)? @ -Patient will need monitoring for both Cardizem and heparin drip. Were any procedures done? @ -No Diagnosis/symptom? @ -New-onset atrial flutter with RVR Acute, or Chronic, or Acute on Chronic? @ -Acute Uncomplicated (without systemic symptoms) or Complicated (systemic symptoms)? @ -default Side effects of treatment? @ -No Exacerbation, Progression, or Severe Exacerbation? @ -No Poses a threat to life or bodily function? How? (Chest pain, USA, DC, pneumonia, PE, COPD, DKA, ARF, appy, cholecystitis, CVA, Diverticulitis, Homicidal, Suicidal, threat to staff... and all critical care pts) @ -No - Lab Data Result diagrams: 07/13/22 11:36 07/13/22 11:36 Lab Results 07/13/22 07/13/22 07/13/22 Range/Units 11:36 11:36 11:36 WBC 7.2 (3.8-10.6) k/uL RBC 4.81 (4.30-5.90) m/uL Hgb 15.3 (13.0-17.5) gm/dL Hct 45.0 (39.0-53.0) % MCV 93.5 (80.0-100.0) fL MCH 31.8 (25.0-35.0) pg MCHC 34.0 (31.0-37.0) g/dL RDW 12.8 (11.5-15.5) % Plt Count 199 (150-450) k/uL MPV 8.0 Neutrophils % 44 % Lymphocytes % 45 % Monocytes % 4 % Eosinophils % 4 % Basophils % 1 % Neutrophils # 3.2 (1.3-7.7) k/uL Lymphocytes # 3.2 (1.0-4.8) k/uL Monocytes # 0.3 (0-1.0) k/uL Eosinophils # 0.3 (0-0.7) k/uL Basophils # 0.1 (0-0.2) k/uL PT 10.5 (9.0-12.0) sec INR 1.0 (<1.2) APTT 24.5 (22.0-30.0) sec Sodium 139 (137-145) mmol/L Potassium 4.7 (3.5-5.1) mmol/L Chloride 107 (98-107) mmol/L Carbon Dioxide 25 (22-30) mmol/L Anion Gap 7 mmol/L BUN 19 (9-20) mg/dL Creatinine 1.03 (0.66-1.25) mg/dL Est GFR (CKD-EPI)AfAm 90 (>60 ml/min/1.73 sqM) Est GFR (CKD-EPI)NonAf 78 (>60 ml/min/1.73 sqM) Glucose 99 (74-99) mg/dL Calcium 8.8 (8.4-10.2) mg/dL Magnesium 2.1 (1.6-2.3) mg/dL Total Bilirubin 1.7 H (0.2-1.3) mg/dL AST 28 (17-59) U/L ALT 32 (4-49) U/L Alkaline Phosphatase 97 (38-126) U/L Troponin I (0.000-0.034) ng/mL Total Protein 6.6 (6.3-8.2) g/dL Albumin 3.9 (3.5-5.0) g/dL TSH 1.150 (0.465-4.680) mIU/L Free T4 1.13 (0.78-2.19) ng/dL 07/13/22 Range/Units 11:36 WBC (3.8-10.6) k/uL RBC (4.30-5.90) m/uL Hgb (13.0-17.5) gm/dL Hct (39.0-53.0) % MCV (80.0-100.0) fL MCH (25.0-35.0) pg MCHC (31.0-37.0) g/dL RDW (11.5-15.5) % Plt Count (150-450) k/uL MPV Neutrophils % % Lymphocytes % % Monocytes % % Eosinophils % % Basophils % % Neutrophils # (1.3-7.7) k/uL Lymphocytes # (1.0-4.8) k/uL Monocytes # (0-1.0) k/uL Eosinophils # (0-0.7) k/uL Basophils # (0-0.2) k/uL PT (9.0-12.0) sec INR (<1.2) APTT (22.0-30.0) sec Sodium (137-145) mmol/L Potassium (3.5-5.1) mmol/L Chloride (98-107) mmol/L Carbon Dioxide (22-30) mmol/L Anion Gap mmol/L BUN (9-20) mg/dL Creatinine (0.66-1.25) mg/dL Est GFR (CKD-EPI)AfAm (>60 ml/min/1.73 sqM) Est GFR (CKD-EPI)NonAf (>60 ml/min/1.73 sqM) Glucose (74-99) mg/dL Calcium (8.4-10.2) mg/dL Magnesium (1.6-2.3) mg/dL Total Bilirubin (0.2-1.3) mg/dL AST (17-59) U/L ALT (4-49) U/L Alkaline Phosphatase (38-126) U/L Troponin I <0.012 (0.000-0.034) ng/mL Total Protein (6.3-8.2) g/dL Albumin (3.5-5.0) g/dL TSH (0.465-4.680) mIU/L Free T4 (0.78-2.19) ng/dL Critical Care Time Critical Care Time: Yes Total Critical Care Time: 32 Disposition Clinical Impression: Atrial flutter, Tachycardia Disposition: ADMITTED IP TO THIS [facility] Is patient prescribed a controlled substance at d/c from ED?: No Referrals: Shanon Abreu DO [Primary Care Provider] - 1-2 days Time of Disposition: 12:54
[2022-07-13] MEDS ORDERED: ASPIRIN 81 MG PO STA (11:36)
[2022-07-13] MEDS ORDERED: DILTIAZEM DRIP BOLUS FROM BAG 1 MG SOLN IV ONE (11:36)
[2022-07-13] MEDS ORDERED: DILTIAZEM 125 MG in SODIUM CHLORIDE 0.9% 100 ML IV SCH (11:45)
[2022-07-13] MEDS ORDERED: DILTIAZEM 5 MG/ML 5 ML VIAL IVP STA (11:56)
[2022-07-13 11:57] LABS: Basophils # (A) 0.1 k/uL (0-0.2); Basophils % (A) 1 %; Eosinophils # (A) 0.3 k/uL (0-0.7); Eosinophils % (A) 4 %; HGB 15.3 gm/dL (13.0-17.5); Lymphocytes # (A) 3.2 k/uL (1.0-4.8); Lymphocytes % (A) 45 %; MCH 31.8 pg (25.0-35.0); MCV 93.5 fL (80.0-100.0); Monocytes # (A) 0.3 k/uL (0-1.0); Monocytes % (A) 4 %; Neutrophils # (A) 3.2 k/uL (1.3-7.7); Neutrophils % (A) 44 %; Platelet Count 199 k/uL (150-450); RBC 4.81 m/uL (4.30-5.90); RDW 12.8 % (11.5-15.5); WBC 7.2 k/uL (3.8-10.6)
[2022-07-13] MEDS ORDERED: METOPROLOL TARTRATE 5 MG/5 ML VIAL IVP STA (11:59)
[2022-07-13 12:01] LABS: Albumin 3.9 g/dL (3.5-5.0); Calcium 8.8 mg/dL (8.4-10.2); Magnesium 2.1 mg/dL (1.6-2.3); Potassium 4.7 mmol/L (3.5-5.1); Total Bilirubin 1.7 mg/dL (0.2-1.3); Total Protein 6.6 g/dL (6.3-8.2)
[2022-07-13 12:17] LABS: T4, Free (Free Thyroxine) 1.13 ng/dL (0.78-2.19)
--- NOTE | 2022-07-13 12:20 | XR ---
EXAMINATION TYPE: XR chest 1V portable DATE OF EXAM: 07/13/2022 12:16 PM COMPARISON: Chest radiographs from 05/05/2022 TECHNIQUE: XR chest 1V portable Portable AP radiograph of the chest. CLINICAL INDICATION:Male, 61 years old with history of dysrhythmia; FINDINGS: Lungs/Pleura: There is no evidence of pleural effusion, focal consolidation, or pneumothorax. Pulmonary vascularity: Unremarkable. Heart/mediastinum: Cardiomediastinal silhouette is unremarkable. Musculoskeletal: No acute osseous pathology. IMPRESSION: No acute cardiopulmonary disease/process.
[2022-07-13 12:25] LABS: Partial Thromboplastin Time 24.5 sec (22.0-30.0); Prothrombin Time 10.5 sec (9.0-12.0)
[2022-07-13] MEDS ORDERED: HEPARIN SODIUM 1,000 UN/ML (10ML VL) IV ONE (12:54)
[2022-07-13] MEDS ORDERED: HEPARIN SOD,PORK IN 0.45% NACL 25,000 UNIT in 0.45% NACL 1 250ML.BAG IV SCH (13:00)
--- NOTE | 2022-07-13 13:55 | P.CRDCN ---
History of Present Illness Consult date: 07/13/22 History of present illness: new onset atrial flutter History of present illness: History of present illness: This is a 61-year-old male with no previous cardiac history, does not follow with a surgery specialist, has never had a stress test or cardiac catheterization. Patient has past medical history of Gastroesophageal reflux disease, hyperlipid emia, obstructive sleep apnea without CPAP, remote history of tobacco use quit in 2021. Patient has been brought into the hospital by Dr. Osorio for EGD. He was assessed by his nurse finding him to complain of chest pressure and his heart rate in the 140s. EKG was done and cardiology consult was requested for concern for new onset of atrial flutter. Patient states the chest pain is a pressure type and it moves around his chest and this pain worsened with deep breathing. No radiation into his neck or arms. No nausea or vomiting. No lightheadedness or dizziness. Patient denies having palpitations. EKG atrial flutter 140 bpm Home cardiac medications: aspirin 81 mg daily, simvastatin 40 mg at bedtime Review Of Systems: At the time of my evaluation: Constitutional: No fever, no chills. No weakness, fatigue or lethargy. EENT: No headache. No dizziness. Lungs: No shortness of breath, cough, no sputum production. No wheezing. Cardiovascular: reports chest pain, no lower extremity edema. No palpitations. No paroxysmal nocturnal dyspnea. No orthopnea. No lightheadedness or dizziness. No syncopal episodes. Abdominal: No abdominal pain. No nausea, vomiting. No diarrhea. No constipation. No bloody or tarry stools. Genitourinary: No dysuria.. No urinary retention. Musculoskeletal: No myalgias. No muscle weakness, no frequent falls. No back pain. No neck pain. Integumentary: No wounds. No rash. No unusual bruising. Neurologic: No aphasia. No facial droop. No change in mentation. No head injury. No headache. Physical examination: Gen: This is a 61-year-old male. He is resting on the stretcher and appears to be comfortable and in no acute distress. No respiratory distress noted VS: reviewed HEENT: Head is atraumatic, normocephalic. Pupils equal, round. Sclerae is anicteric. NECK: Supple. No JVD. LUNGS: Clear to auscultation. No wheezes or rhonchi. No intercostal retractions. HEART: Regular rate and rhythm. No murmur. Tachycardic, No chest wall tenderness ABDOMEN: Soft No tenderness. EXTREMITIES: No pedal edema. No calf tenderness. NEUROLOGICAL: Patient is awake, alert and oriented x3. Assessment: New onset atrial flutter Chest pain, possibly related to A Flutter GERD HLD BARBARA Remote history of tobacco use. Plan: Start patient on Cardizem bolus and gtt Obtain stat labs: CBC, BMP, INR, Trops, TSH Obtain stat 2-D echocardiogram and Doppler study to assess cardiac structure and function IF hgb and plt counts stable, start heparin gtt - low intensity protocol Please admit to 6N Patient may be scheduled for electrocardioversion tomorrow depending on progress. Further recommendations to follow based upon clinical course Thank you kindly for this consultation. Nurse practitioner note has been reviewed, I agree with documented findings and plan of care. Patient was seen and examined. Past Medical History Past Medical History: GERD/Reflux, Hyperlipidemia, Sleep Apnea/CPAP/BIPAP Additional Past Medical History / Comment(s): SLEEP APNEA-NO MACHINE. History of Any Multi-Drug Resistant Organisms: None Reported Past Surgical History: Cholecystectomy, Orthopedic Surgery Additional Past Surgical History / Comment(s): CERVICAL FUSION, "WRAP " FOR GERD ([place]). RIGHT KNEE ARTHROSCOPY. Past Anesthesia/Blood Transfusion Reactions: No Reported Reaction Past Psychological History: Depression Smoking Status: Former smoker Past Alcohol Use History: None Reported Past Drug Use History: None Reported - Past Family History Mother Family Medical History: Cancer Father Family Medical History: Cancer Medications and Allergies Home Medications Medication Instructions Recorded Confirmed Type Aspirin 81 mg PO DAILY 04/25/18 07/13/22 History lamoTRIgine [LaMICtal] 200 mg PO HS 04/25/18 07/13/22 History Multivitamins, Thera [Multivitamin 1 tab PO DAILY 12/13/20 07/13/22 History (formulary)] QUEtiapine FUMARATE [SEROquel] 300 mg PO HS 12/13/20 07/13/22 History Omeprazole 40 mg PO HS 07/10/22 07/13/22 History Simvastatin [Zocor] 40 mg PO HS 07/13/22 07/13/22 History buPROPion HCL [Wellbutrin SR] 200 mg PO DAILY 07/13/22 07/13/22 History Allergies Allergy/AdvReac Type Severity Reaction Status Date / Time No Known Allergies Allergy Verified 07/13/22 13:05 Physical Exam Vitals: Vital Signs Temp Pulse Pulse Resp BP Pulse Ox 07/13/22 13:00 90 20 126/90 99 07/13/22 12:30 144 H 20 07/13/22 12:01 90 20 119/80 96 07/13/22 11:30 144 H 20 134/80 97 07/13/22 11:28 98 F 144 H 22 124/92 97 Intake and Output 07/12/22 07/13/22 07/13/22 22:59 06:59 14:59 Other: Weight 92.533 kg Results 07/13/22 11:36 07/13/22 11:36 Cardiac Enzymes 07/13/22 07/13/22 Range/Units 11:36 11:36 AST 28 (17-59) U/L Troponin I <0.012 (0.000-0.034) ng/mL Coagulation 07/13/22 Range/Units 11:36 PT 10.5 (9.0-12.0) sec APTT 24.5 (22.0-30.0) sec CBC 07/13/22 Range/Units 11:36 WBC 7.2 (3.8-10.6) k/uL RBC 4.81 (4.30-5.90) m/uL Hgb 15.3 (13.0-17.5) gm/dL Hct 45.0 (39.0-53.0) % Plt Count 199 (150-450) k/uL Comprehensive Metabolic Panel 07/13/22 Range/Units 11:36 Sodium 139 (137-145) mmol/L Potassium 4.7 (3.5-5.1) mmol/L Chloride 107 (98-107) mmol/L Carbon Dioxide 25 (22-30) mmol/L BUN 19 (9-20) mg/dL Creatinine 1.03 (0.66-1.25) mg/dL Glucose 99 (74-99) mg/dL Calcium 8.8 (8.4-10.2) mg/dL AST 28 (17-59) U/L ALT 32 (4-49) U/L Alkaline Phosphatase 97 (38-126) U/L Total Protein 6.6 (6.3-8.2) g/dL Albumin 3.9 (3.5-5.0) g/dL Current Medications Generic Name Dose Route Start Last Admin Trade Name Freq PRN Reason Stop Dose Admin Aspirin 325 mg 07/14/22 09:00 Aspirin 325 Mg Tab PO DAILY [facility] Diltiazem HCl 125 mg/ Sodium 125 mls @ 5 mls/hr 07/13/22 11:45 07/13/22 11:49 Chloride IV 5 mg/hr .Q24H [facility] 5 mls/hr Administration 5 MG/HR Heparin Sodium/Sodium Chloride 250 mls @ 9.994 mls/hr 07/13/22 13:00 07/13/22 13:14 25,000 unit/ Sodium Chloride IV 10.8 units/kg/hr .Q24H [facility] 9.994 mls/hr Administration Protocol 10.8 UNITS/KG/HR Sodium Chloride 10 ml 07/13/22 21:00 Sodium Chloride 0.9% Flush 10 Ml Syringe IV BID [facility] Intake and Output 07/12/22 07/13/22 07/13/22 22:59 06:59 14:59 Other: Weight 92.533 kg Patient Weight 07/14/22 06:59 Weight 92.533 kg 07/13/22 11:36 07/13/22 11:36
[2022-07-13] MEDS: PANTOPRAZOLE 40 MG TABLET PO SCH (20:22)
[2022-07-13] MEDS: QUEtiapine 100 MG TAB PO SCH (20:22)
[2022-07-13] MEDS: ATORVASTATIN 20 MG TAB PO SCH (20:22)
[2022-07-13] MEDS: lamoTRIgine 100 MG TAB PO SCH (20:22)
[2022-07-14 04:01] LABS: Mean Platelet Volume 8.2; Platelet Count 178 k/uL (150-450)
[2022-07-14] MEDS: buPROPion SR 100 MG TABLET.ER PO SCH (07:40)
[2022-07-14] MEDS: MULTIVITAMINS, THERA 1 EACH TAB PO SCH (07:41)
[2022-07-14] MEDS ORDERED: ASPIRIN 325 MG TAB PO SCH (09:00)
[2022-07-14 09:46] LABS: Chol/HDL Ratio 2.82 Ratio; LDL Cholesterol,Calculated 69.2 mg/dL (0.0-131.0); VLDL Calculation 14.68 mg/dL (5.00-40.00)
--- NOTE | 2022-07-14 10:57 | P.HPIM ---
History of Present Illness H&P Date: 07/14/22 Chief Complaint: New-onset atrial flutter This is a pleasant 61-year-old gentleman with past medical history gastroesophageal reflux disease, hyperlipidemia, sleep apnea, depression, former nicotine dependence, no previous cardiac history-mother had atrial fibrillation, discovered to be in atrial flutter in preop prior to EGD procedure. Patient had complained of nonradiating fluctuating chest pressure and heart rate discovered in the 140s, EKG reported atrial flutter 140s. Troponins negative 3. Patient stated he been having some pressure in his chest, thought it was related to his hiatal hernia, accompanied by minimal shortness of breath, denied diaphoresis, denied palpitations. Reports some mild lightheadedness when he would bend over, otherwise none. Denies syncope. Denies nausea vomiting or diarrhea. Denies abdominal pain. Also complains of left leg pain that radiates up into his thigh. Chest x-ray reported no acute cardiopulmonary disease. Afebrile, maintaining O2 sats in the 90s on room air. Blood pressure soft with systolic blood pressures in the high 90s,MAPs in the 70s. Hematology, chemistry panel unremarkable with the exception of total bilirubin 1.7. Triglycerides 73.4, cholesterol 1:30, LDL 69.2 HDL 46. INR on admission 1. Telemetry atrial flutter, rate better controlled. Review of Systems Constitutional: Denied any fatigue denied any fever. Cardio vascular: denied any chest pain, palpitations, only chest [id number] Gastrointestinal denied any nausea vomiting Pulmonary: Minimal shortness of breath cough Neurologic denied any new focal deficits ROS Statement: Those systems with pertinent positive or pertinent negative responses have been documented in the HPI. ROS Other: All systems not noted in ROS Statement are negative. Past Medical History Past Medical History: Atrial Flutter, GERD/Reflux, Hyperlipidemia, Sleep A pnea/CPAP/BIPAP Additional Past Medical History / Comment(s): SLEEP APNEA-NO MACHINE, hiatal hernia History of Any Multi-Drug Resistant Organisms: None Reported Past Surgical History: Cholecystectomy, Orthopedic Surgery Additional Past Surgical History / Comment(s): CERVICAL FUSION, "WRAP " FOR GERD ([place]). RIGHT KNEE ARTHROSCOPY. Past Anesthesia/Blood Transfusion Reactions: No Reported Reaction Past Psychological History: Depression Smoking Status: Former smoker Past Alcohol Use History: None Reported Additional Past Alcohol Use History / Comment(s): QUIT 2021,SMOKED 1/2 PPD, STARTED SMOKING AGE 17. Past Drug Use History: None Reported - Past Family History Mother Family Medical History: Cancer Father Family Medical History: Cancer Medications and Allergies Home Medications Medication Instructions Recorded Confirmed Type Aspirin 81 mg PO DAILY 04/25/18 07/13/22 History lamoTRIgine [LaMICtal] 200 mg PO HS 04/25/18 07/13/22 History Multivitamins, Thera [Multivitamin 1 tab PO DAILY 12/13/20 07/13/22 History (formulary)] QUEtiapine FUMARATE [SEROquel] 300 mg PO HS 12/13/20 07/13/22 History Omeprazole 40 mg PO HS 07/10/22 07/13/22 History Simvastatin [Zocor] 40 mg PO HS 07/13/22 07/13/22 History buPROPion HCL [Wellbutrin SR] 200 mg PO DAILY 07/13/22 07/13/22 History Allergies Allergy/AdvReac Type Severity Reaction Status Date / Time No Known Allergies Allergy Verified 07/13/22 13:05 Physical Exam Vitals: Vital Signs Temp Pulse Pulse Pulse Resp BP BP 07/14/22 08:19 07/14/22 07:39 97.8 F 68 18 99/66 07/14/22 07:37 97.6 F 72 18 98/61 07/14/22 03:50 98.1 F 94 18 95/57 07/13/22 23:53 97.9 F 117 H 18 100/67 07/13/22 20:00 98.0 F 87 16 124/93 07/13/22 17:49 97.9 F 98 17 07/13/22 17:44 97.9 F 58 L 17 07/13/22 17:20 101 H 20 127/78 07/13/22 15:00 81 16 118/77 07/13/22 14:00 90 16 112/60 07/13/22 13:00 90 20 126/90 07/13/22 12:30 144 H 20 07/13/22 12:01 90 20 119/80 07/13/22 11:30 144 H 20 134/80 07/13/22 11:28 98 F 144 H 22 124/92 BP Pulse Ox 07/14/22 08:19 97 07/14/22 07:39 97 07/14/22 07:37 94 L 07/14/22 03:50 93 L 07/13/22 23:53 94 L 07/13/22 20:00 95 07/13/22 17:49 131/76 94 L 07/13/22 17:44 131/76 94 L 07/13/22 17:20 96 07/13/22 15:00 98 07/13/22 14:00 98 07/13/22 13:00 99 07/13/22 12:30 07/13/22 12:01 96 07/13/22 11:30 97 07/13/22 11:28 97 Intake and Output 07/13/22 07/14/22 07/14/22 22:59 06:59 14:59 Intake Total 151.742 240 Balance 151.742 240 Intake: Intake, IV Titration 151.742 Amount Heparin Sod,Pork in 0.45% 151.742 NaCl 25,000 unit In 0.45 % NaCl 1 250ml.bag @ 10.8 UNITS/KG/HR 9.994 mls/hr IV .Q24H [facility] Rx#: [id number] Oral 240 Other: Voiding Method Toilet Toilet Toilet # Voids 1 1 1 Weight 92.533 kg PHYSICAL EXAM: VITAL SIGNS: As above GENERAL: Sitting up at the side of bed, no acute distress HEENT: Atraumatic, normocephalic ,Conjunctivae normal. eyes normal. NECK: Supple, No JVD. No thyroid enlargement. No LNs CARDIOVASCULAR: S1, S2 regular.. No murmur RESPIRATION: Unlabored, clear to auscultation .Breath sounds diminished in the bases. No rhonchi or crackles. No bronchial breathing. ABDOMEN: Soft, nondistended, nontender . No guarding. no masses palpable. No ascites, No hepatosplenomegaly.Bowel sounds heard. LEGS: No edema. no swelling PSYCHIATRY: Alert and oriented X3, mood and affect normal. NERVOUS SYSTEM: Cranial N 2-12 grossly normal. No focal deficits. Strength and sensation grossly intact. Skin: Warm and dry, no rash Results CBC & Chem 7: 07/14/22 03:04 07/13/22 11:36 Labs: Abnormal Lab Results - Last 24 Hours (Table) 07/13/22 07/13/2207/14/23 Range/Units 11:36 17:44 03:04 APTT 48.5 H 47.6 H (22.0-30.0) sec Total Bilirubin 1.7 H (0.2-1.3) mg/dL 07/14/22 Range/Units 09:03 APTT 46.3 H (22.0-30.0) sec Total Bilirubin (0.2-1.3) mg/dL Thrombosis Risk Factor Assmnt - Choose All That Apply Any of the Below Risk Factors Present?: Yes Each Risk Factor Represents 2 Points: Age 61-74 years Other congenital or acquired thrombophilia - If yes, enter type in comment: No Thrombosis Risk Factor Assessment Total Risk Factor Score: 2 Thrombosis Risk Factor Assessment Level: Low Risk Assessment and Plan Assessment: New-onset atrial flutter Radiating chest pressure, possibly secondary to the above Obesity, BMI 31 Obstructive sleep apnea History of hiatal hernia Gastroesophageal reflux disease Hyperlipidemia Former nicotine dependence Depression Plan: Continue on current medication regime ,monitoring and symptomatic t reatment. Anticoagulated on heparin drip. Continues on Cardizem drip. Echo pending. Potential electrocardioversion today as per cardiology. Ultrasound of left leg, ruling out DVT. The impression and plan of care has been dictated as directed. : I performed a history and examination of this patient, discussed the same with the dictator. I agree with the dictator's note ,documented as a scribe. Any additional findings or plans will be noted.
[2022-07-14] MEDS: APIXABAN 5 MG TAB PO SCH ×2 (11:26→20:46)
[2022-07-14] MEDS: METOPROLOL TARTRATE 25 MG TAB PO SCH ×2 (11:26→20:48)
--- NOTE | 2022-07-14 11:39 | US ---
EXAMINATION TYPE: US venous doppler duplex LE LT DATE OF EXAM: 07/14/2022 10:57 AM COMPARISON: NONE CLINICAL INDICATION: Male, 61 years old with history of pain entire leg; patient states pain near lef t side of symphysis pubis, not in leg SIDE PERFORMED: Left TECHNIQUE: The lower extremity deep venous system is examined utilizing real time linear array sonog mary with graded compression, doppler sonography and color-flow sonography. VESSELS IMAGED: Common Femoral Vein Deep Femoral Vein Greater Saphenous Vein * Femoral Vein Popliteal Vein Small Saphenous Vein * Proximal Calf Veins (* superficial vessels) Left Leg: Negative for DVT Grayscale, color doppler, spectral doppler imaging performed of the deep veins of the left lower extr emity. There is normal flow, compressibility, vascular waveforms. IMPRESSION: No ultrasound evidence for acute DVT in the left lower extremity.
--- NOTE | 2022-07-14 12:09 | P.PN ---
Subjective Progress Note Date: 07/14/22 PROGRESS NOTE The patient is a 61-year-old male who was scheduled to undergo endoscopy and was found to have atrial flutter with rapid ventricular response of unknown duration. Was complaining of fullness in the chest. He had an echocardiogram that showed an ejection fraction of 45-50%. In April 2022 he was in sinus mechanism. He feels better this morning. He denies any chest discomfort, dizziness or palpitations. He continues to be in atrial flutter with controlled ventricular response. He has a history of hyperlipidemia. He is on IV heparin and Cardizem at this time. Medications: IV heparin, IV Cardizem, atorvastatin 20 mg daily, aspirin once a day PHYSICAL EXAMINATION: Blood pressure 109/60 heart rate 90 LUNGS: Clear to auscultation HEART: Irregular rate and rhythm, S1, S2. No S3. No systolic murmur ABDOMEN: Soft, nontender, no organomegaly EXTREMETIES: No edema LAB: Troponin less than 0.012. LDL 69. BUN 19, creatinine 1.03. TSH 1.15. IMPRESSION: 1. Atrial flutter new since April 2022 2. Mild cardiomyopathy with no evidence of CHF 3. History of hyperlipidemia 4. Chest discomfort with no evidence of acute coronary syndrome PLAN: 1. Stop IV heparin and IV Cardizem 2. Start metoprolol and oral anticoagulation 3. Follow ventricular response and increase physical activity 4. If the patient is stable probable discharge home in 24 hours and follow-up as outpatient, if ventricular response remains fast then consider BACILIO guided cardioversion. Objective - Vital Signs Vital signs: Vital Signs Temp 97.7 F 07/14/22 11:10 Pulse 96 07/14/22 11:10 Resp 18 07/14/22 11:10 BP 109/66 07/14/22 11:10 Pulse Ox 94 L 07/14/22 11:10 FiO2 Intake & Output 07/13/22 07/14/22 07/14/22 18:59 06:59 18:59 Intake Total 151.742 240 Balance 151.742 240 Weight 92.533 kg Intake: Intake, IV Titration 151.742 Amount Heparin Sod,Pork in 0.45% 151.742 NaCl 25,000 unit In 0.45 % NaCl 1 250ml.bag @ 10.8 UNITS/KG/HR 9.994 mls/hr IV .Q24H [facility] Rx#: [id number] Oral 240 Other: Voiding Method Toilet Toilet # Voids 1 1 - Labs CBC & Chem 7: 07/14/22 03:04 07/13/22 11:36 Labs: Abnormal Lab Results - Last 24 Hours (Table) 07/13/22 07/14/22 07/14/22 Range/Units 17:44 03:04 09:03 APTT 48.5 H 47.6 H 46.3 H (22.0-30.0) sec
[2022-07-14 13:52] VITALS: BMI 31.0
[2022-07-14] MEDS: lamoTRIgine 100 MG TAB PO SCH (20:44)
[2022-07-14] MEDS: QUEtiapine 100 MG TAB PO SCH (20:44)
[2022-07-14] MEDS: ATORVASTATIN 20 MG TAB PO SCH (20:45)
[2022-07-14] MEDS: PANTOPRAZOLE 40 MG TABLET PO SCH (20:45)
[2022-07-15 05:18] VITALS: RESP 18
[2022-07-15 07:44] LABS: Mean Platelet Volume 8.3; Platelet Count 193 k/uL (150-450)
[2022-07-15 07:57] LABS: Calcium 8.8 mg/dL (8.4-10.2); Potassium 4.5 mmol/L (3.5-5.1)
[2022-07-15] MEDS: APIXABAN 5 MG TAB PO SCH (08:36)
[2022-07-15] MEDS: MULTIVITAMINS, THERA 1 EACH TAB PO SCH (08:36)
[2022-07-15] MEDS: METOPROLOL TARTRATE 25 MG TAB PO SCH (08:36)
[2022-07-15] MEDS: buPROPion SR 100 MG TABLET.ER PO SCH (08:37)
[2022-07-15 11:05] VITALS: BP 117/78; PULSE 96; TEMP 97.5
--- NOTE | 2022-07-15 11:23 | P.PN ---
Subjective Progress Note Date: 07/15/22 PROGRESS NOTE The patient is a 61-year-old male who was scheduled to undergo endoscopy and was found to have atrial flutter with rapid ventricular response of unknown duration. Was complaining of fullness in the chest. He had an echocardiogram that showed an ejection fraction of 45-50%. In April 2022 he was in sinus mechanism. He feels better this morning. He denies any chest discomfort, dizziness or palpitations. He continues to be in atrial flutter with controlled ventricular response. He has a history of hyperlipidemia. He is on IV heparin and Cardizem at this time. July 15: The patient feels better today, his breathing is better. He is in atrial flutter with controlled ventricular response. He denies any nausea or vomiting. He has no cough or fever. No dizziness. Medications: Metoprolol 25 mg twice a day, Eliquis 5 mg twice a day, atorvastatin 20 mg daily, aspirin once a day PHYSICAL EXAMINATION: Blood pressure 117/70 heart rate 90 LUNGS: Clear to auscultation HEART: Irregular rate and rhythm, S1, S2. No S3. No systolic murmur ABDOMEN: Soft, nontender, no organomegaly EXTREMETIES: No edema LAB: Potassium 4.5, BUN 19, creatinine 1.22 IMPRESSION: 1. Atrial flutter new since April 2022 2. Mild cardiomyopathy with no evidence of CHF 3. History of hyperlipidemia 4. Chest discomfort with no evidence of acute coronary syndrome PLAN: 1. Continue present therapy 2. Increase physical activity 3. Probable discharged home today and follow-up as an outpatient with Dr. William and if still in atrial flutter proceed with cardioversion Objective - Vital Signs Vital signs: Vital Signs Temp 97.5 F L 07/15/22 11:01 Pulse 96 07/15/22 11:01 Resp 18 07/15/22 11:01 BP 117/78 07/15/22 11:01 Pulse Ox 96 07/15/22 11:01 FiO2 Intake & Output 07/14/22 07/15/22 07/15/22 18:59 06:59 18:59 Intake Total 550 Balance 550 Weight 92.533 kg Intake: IV 10 Invasive Line 2 10 Oral 540 Other: Voiding Method Toilet Toilet Toilet # Voids 1 1 1 - Labs CBC & Chem 7: 07/15/22 07:03 07/15/22 07:03 Labs: Abnormal Lab Results - Last 24 Hours (Table) 07/15/22 Range/Units 07:03 Chloride 109 H (98-107) mmol/L
== END 2022-07-15 14:02 | disposition home or self-care (01) | DRG 310 ==
LOC: EC 11:20 → 3SCARD 12:59
PROVIDERS: ADMIT Family Medicine; ATTEND Family Medicine
DX: I48.92 Unspecified atrial flutter (principal); K21.9 Gastro-esophageal reflux disease without esophagitis; Z79.82 Long term (current) use of aspirin; Z79.899 Other long term (current) drug therapy; Z28.311 Partially vaccinated for COVID-19; Z71.3 Dietary counseling and surveillance; G47.33 Obstructive sleep apnea (adult) (pediatric); I42.9 Cardiomyopathy, unspecified; E66.9 Obesity, unspecified; Z68.31 Body mass index [BMI] 31.0-31.9, adult; Z98.1 Arthrodesis status; K44.9 Diaphragmatic hernia without obstruction or gangrene; F32.A Depression, unspecified; E78.5 Hyperlipidemia, unspecified
CPT/HCPCS: 36415; 71045; 80048; 80053; 80061; 80175; 83735; 84439; 84443; 84481; 84484; 85025; 85049; 85610; 85730; 93005; 94760; 96365; 96366; 96375; 99291

== ENCOUNTER → 2022-07-13 | Day surgery (SDC) | payer MEDICARE ==
[~2022-07-13] MED LIST changes: +DILTIAZEM 125 MG in SODIUM CHLORIDE 0.9% 100 ML IV SCH; +DILTIAZEM DRIP BOLUS FROM BAG 1 MG SOLN IV ONE
[2022-07-13 10:29] VITALS: BP 143/93; PULSE 142; RESP 22; TEMP 96.7
--- NOTE | 2022-07-13 11:14 | P.CRDCN ---
History of Present Illness Consult date: 07/13/22 Reason for Consult (text): new onset atrial flutter History of present illness: History of present illness: This is a 61-year-old male with no previous cardiac history, does not follow with a floorman, has never had a stress test or cardiac catheterization. Patient has past medical history of Gastroesophageal reflux disease, hyperlipidemia, obstructive sleep apnea without CPAP, remote history of tobacco use quit in 2021. Patient has been brought into the hospital by Dr. Osorio for EGD. He was assessed by his nurse finding him to complain of chest pressure and his heart rate in the 140s. EKG was done and cardiology consult was requested for concern for new onset of atrial flutter. Patient states the chest pain is a pressure type and it moves around his chest and this pain worsened with deep breathing. No radiation into his neck or arms. No nausea or vomiting. No lightheadedness or dizziness. Patient denies having palpitations. EKG atrial flutter 140 bpm Home cardiac medications: aspirin 81 mg daily, simvastatin 40 mg at bedtime Review Of Systems: At the time of my evaluation: Constitutional: No fever, no chills. No weakness, fatigue or lethargy. EENT: No headache. No dizziness. Lungs: No shortness of breath, cough, no sputum production. No wheezing. Cardiovascular: reports chest pain, no lower extremity edema. No palpitations. No paroxysmal nocturnal dyspnea. No orthopnea. No lightheadedness or dizziness. No syncopal episodes. Abdominal: No abdominal pain. No nausea, vomiting. No diarrhea. No constipation. No bloody or tarry stools. Genitourinary: No dysuria.. No urinary retention. Musculoskeletal: No myalgias. No muscle weakness, no frequent falls. No back pain. No neck pain. Integumentary: No wounds. No rash. No unusual bruising. Neurologic: No aphasia. No facial droop. No change in mentation. No head injury. No headache. Physical examination: Gen: This is a 61-year-old male. He is resting on the stretcher and appears to be comfortable and in no acute distress. No respiratory distress noted VS: reviewed HEENT: Head is atraumatic, normocephalic. Pupils equal, round. Sclerae is anicteric. NECK: Supple. No JVD. LUNGS: Clear to auscultation. No wheezes or rhonchi. No intercostal retractions. HEART: Regular rate and rhythm. No murmur. Tachycardic, No chest wall tenderness ABDOMEN: Soft No tenderness. EXTREMITIES: No pedal edema. No calf tenderness. NEUROLOGICAL: Patient is awake, alert and oriented x3. Assessment: New onset atrial flutter Chest pain, possibly related to A Flutter GERD HLD BARBARA Remote history of tobacco use. Plan: Start patient on Cardizem bolus and gtt Obtain stat labs: CBC, BMP, INR, Trops, TSH Obtain stat 2-D echocardiogram and Doppler study to assess cardiac structure and function IF hgb and plt counts stable, start heparin gtt - low intensity protocol Please admit to 6N Patient may be scheduled for electrocardioversion tomorrow depending on progress. Further recommendations to follow based upon clinical course Thank you kindly for this consultation. Nurse practitioner note has been reviewed, I agree with documented findings and plan of care. Patient was seen and examined. Past Medical History Past Medical History: GERD/Reflux, Hyperlipidemia, Sleep Apnea/CPAP/BIPAP Additional Past Medical History / Comment(s): SLEEP APNEA-NO MACHINE. History of Any Multi-Drug Resistant Organisms: None Reported Past Surgical History: Cholecystectomy, Orthopedic Surgery Additional Past Surgical History / Comment(s): CERVICAL FUSION, "WRAP " FOR GERD (DEIDRE). RIGHT KNEE ARTHROSCOPY. Past Anesthesia/Blood Transfusion Reactions: No Reported Reaction Past Psychological History: Depression Smoking Status: Former smoker Past Alcohol Use History: None Reported Additional Past Alcohol Use History / Comment(s): QUIT 2021,SMOKED 1/2 PPD, STARTED SMOKING AGE 17. Past Drug Use History: None Reported - Past Family History Mother Family Medical History: Cancer Father Family Medical History: Cancer Medications and Allergies Home Medications Medication Instructions Recorded Confirmed Type Simvastatin [Zocor] 40 mg PO HS 11/12/17 07/10/22 History buPROPion [Wellbutrin] 200 mg PO QA 11/12/17 07/10/22 History Aspirin 81 mg PO DAILY 04/25/18 07/10/22 History lamoTRIgine [LaMICtal] 200 mg PO HS 04/25/18 07/10/22 History Multivitamins, Thera [Multivitamin 1 tab PO DAILY 12/13/20 07/10/22 History (formulary)] QUEtiapine FUMARATE [SEROquel] 300 mg PO HS 12/13/20 07/10/22 History Omeprazole 40 mg PO HS 07/10/22 07/10/22 History Allergies Allergy/AdvReac Type Severity Reaction Status Date / Time No Known Allergies Allergy Verified 07/10/22 15:53 Physical Exam Vitals: Vital Signs Temp Pulse Resp BP Pulse Ox 07/13/22 10:24 96.7 F L 142 H 22 143/93 95 Intake and Output 07/12/22 07/13/22 07/13/22 22:59 06:59 14:59 Other: Weight 92.8 kg Results Current Medications Generic Name Dose Route Start Last Admin Trade Name Freq PRN Reason Stop Dose Admin Diltiazem HCl 5 mg 07/13/22 11:00 Diltiazem Drip Bolus From Bag 1 Mg Soln IV 07/13/22 11:01 ONCE ONE Lactated Ringer's 1,000 mls @ 20 mls/hr 07/13/22 06:45 07/13/22 10:17 Lactated Ringers IV 08/12/22 06:46 0 mls .Q24H CHRIS Administration Diltiazem HCl 125 mg/ Sodium 125 mls @ 5 mls/hr 07/13/22 11:00 Chloride IV 08/12/22 11:01 .Q24H CHRIS 5 MG/HR Intake and Output 07/12/22 07/13/22 07/13/22 22:59 06:59 14:59 Other: Weight 92.8 kg Patient Weight 07/14/22 06:59 Weight 92.8 kg
--- NOTE | 2022-07-13 17:23 | CA ---
Transthoracic Echo Report Name: Jaden Corbin Age: 61 Gender: M : 1960 Exam Date: 07/13/2022 11:56 Exam Location: [place] [facility] Ht (in): 68 Wt (lb): 204 Ordering Physician: Thania Ricci Attending/Referring Phys: Glue Size Machine Operator Viji Noguera RDCS Procedure CPT: Indications: LVH, aflutter Cardiac Hx: Technical Quality: Fair Contrast 1: Total Dose (mL): Contrast 2: Total Dose (mL): MEASUREMENTS (Male / Female) Normal Values 2D ECHO LV Diastolic Diameter PLAX 5.0 cm 4.2 - 5.9 / 3.9 - 5.3 cm LV Systolic Diameter PLAX 2.2 cm IVS Diastolic Thickness 1.3 cm 0.6 - 1.0 / 0.6 - 0.9 cm LVPW Diastolic Thickness 1.6 cm 0.6 - 1.0 / 0.6 - 0.9 cm LV Relative Wall Thickness 0.6 RV Internal Dim ED PLAX 3.7 cm LV Diastolic Volume MOD BP 87.8 cm??? 67 - 155 / 56 - 104 cm??? LV Systolic Volume MOD BP 46.2 cm??? 22 - 58 / 19 - 49 cm??? LV Ejection Fraction MOD BP 47.4 % >= 55 % LV Cardiac Index MOD BP 1617.5 cm???/min???m??? LV Diastolic Volume MOD 4C 77.1 cm??? LV Systolic Volume MOD 4C 51.2 cm??? LV Ejection Fraction MOD 4C 33.6 % LV Cardiac Index MOD 4C 1006.0 cm???/min???m??? LV Diastolic Length 4C 7.1 cm LV Systolic Length 4C 5.5 cm LV Diastolic Volume MOD 2C 98.1 cm??? LV Systolic Volume MOD 2C 41.6 cm??? LV Ejection Fraction MOD 2C 57.5 % LV Cardiac Index MOD 2C 2193.5 cm???/min???m??? LV Diastolic Length 2C 6.9 cm LV Systolic Length 2C 5.5 cm LA Volume 70.1 cm??? 18 - 58 / 22 - 52 cm??? M-MODE Aortic Root Diameter MM 3.3 cm LA Systolic Diameter MM 3.8 cm LA Ao Ratio MM 1.1 DOPPLER AV Peak Velocity 118.6 cm/s AV Peak Gradient 5.6 mmHg AV Mean Velocity 86.0 cm/s AV Mean Gradient 3.3 mmHg AV Velocity Time Integral 21.0 cm LVOT Peak Velocity 82.6 cm/s LVOT Peak Gradient 2.7 mmHg MV Area PHT 3.1 cm??? Mitral E Point Velocity 92.3 cm/s Mitral A Point Velocity 60.9 cm/s Mitral E to A Ratio 1.5 MV Deceleration Time 241.1 ms MV E' Velocity 7.4 cm/s Mitral E to MV E' Ratio 12.5 TR Peak Velocity 217.3 cm/s TR Peak Gradient 18.9 mmHg Right Ventricular Systolic Press 23.4 mmHg FINDINGS Left Ventricle Mildly increased left ventricular wall thickness. Mildly decreased left ventricular ejection fraction. Left ventricular cavity size normal. Left ventricular ejection fraction is estimated at 45-50 %. Right Ventricle Mild right ventricular dilatation. Right ventricular systolic pressure within normal limits. Right Atrium Normal right atrial size. Left Atrium Moderately increased left atrial volume. Mildly increased left atrial area. Mitral Valve Structurally normal mitral valve. Mitral valve thickened. Mild mitral annular calcification. [id number] mitral regurgitation. Centrally directed mitral regurgitation jet. Aortic Valve Trileaflet aortic valve. No aortic valve stenosis or regurgitation. Tricuspid Valve Structurally normal tricuspid valve. Mild tricuspid regurgitation. Pulmonic Valve Structurally normal pulmonic valve. Trace pulmonic regurgitation. Pericardium No pericardial effusion. Aorta Normal size aortic root and proximal ascending aorta. CONCLUSIONS Mild LV systolic dysfunction Mild to moderate mitral regurgitation Previewed by: Dr. Clarence William MD (Electronically Signed) Final Date: 13 July 2022 17:22
== END ==
LOC: ORWHC2ENDO 10:03
PROVIDERS: ATTEND Surgery
DX: I48.92 Unspecified atrial flutter (principal); K21.9 Gastro-esophageal reflux disease without esophagitis; E78.5 Hyperlipidemia, unspecified; F32.A Depression, unspecified; G47.30 Sleep apnea, unspecified; Z99.89 Dependence on other enabling machines and devices; Z87.891 Personal history of nicotine dependence; Z90.49 Acquired absence of other specified parts of digestive tract; Z98.890 Other specified postprocedural states; Z80.8 Family history of malignant neoplasm of other organs or systems; Z79.899 Other long term (current) drug therapy
CPT/HCPCS: 93306

== ENCOUNTER 2022-07-31 12:42 | Observation (INO) | payer MEDICARE ==
[2022-07-31 13:12] LABS: Basophils # (A) 0.1 k/uL (0-0.2); Basophils % (A) 0 %; Eosinophils # (A) 0.4 k/uL (0-0.7); Eosinophils % (A) 4 %; HCT 50.2 % (39.0-53.0); HGB 16.3 gm/dL (13.0-17.5); Lymphocytes # (A) 3.3 k/uL (1.0-4.8); Lymphocytes % (A) 29 %; MCHC 32.4 g/dL (31.0-37.0); MCV 95.5 fL (80.0-100.0); Mean Platelet Volume 8.3; Monocytes # (A) 0.4 k/uL (0-1.0); Monocytes % (A) 3 %; Neutrophils % (A) 62 %; Platelet Count 198 k/uL (150-450); RBC 5.26 m/uL (4.30-5.90); RDW 12.5 % (11.5-15.5); WBC 11.2 k/uL (3.8-10.6)
--- NOTE | 2022-07-31 13:21 | XR ---
EXAMINATION TYPE: XR chest 2V DATE OF EXAM: 07/31/2022 COMPARISON: 07/13/2022 HISTORY: 61-year-old male with chest pain TECHNIQUE: PA and lateral views FINDINGS: Heart normal size. Aorta and pulmonary vasculature are within normal limits. Surgical clips below the GE junction. Partially visualized ACDF hardware. Anterior endplate spondylosis midthoracic spine. No consolidation or pleural effusion. IMPRESSION: No acute cardiopulmonary process.
[2022-07-31 13:24] LABS: Albumin 4.3 g/dL (3.5-5.0); Calcium 9.2 mg/dL (8.4-10.2); Magnesium 2.2 mg/dL (1.6-2.3); Potassium 4.7 mmol/L (3.5-5.1); Total Bilirubin 1.5 mg/dL (0.2-1.3); Total Protein 7.4 g/dL (6.3-8.2)
--- NOTE | 2022-07-31 13:28 | ED ---
General Adult HPI - General Chief complaint: Chest Pain Stated complaint: chest pain Time Seen by Provider: 07/31/22 12:53 Source: patient, RN notes reviewed, old records reviewed Mode of arrival: ambulatory Limitations: no limitations - History of Present Illness Initial comments: 61-year-old male who presents for evaluation of chest discomfort and pal pitation. Patient was recently diagnosed with atrial flutter. He has been compliant with his medications. He developed some chest pain and discomfort over the past 24 hours. No associated cough or dyspnea. Pain is central and left-sided. It is intermittent in nature. No associated vomiting or diaphoresis. - Related Data Home Medications Medication Instructions Recorded Confirmed Aspirin 81 mg PO DAILY 04/25/18 07/31/22 lamoTRIgine [LaMICtal] 200 mg PO HS 04/25/18 07/31/22 Multivitamins, Thera [Multivitamin 1 tab PO DAILY 12/13/20 07/31/22 (formulary)] Omeprazole 40 mg PO HS 07/10/22 07/31/22 buPROPion HCL [Wellbutrin SR] 200 mg PO DAILY 07/13/22 07/31/22 Amiodarone [Cordarone] 200 mg PO DAILY 07/31/22 07/31/22 Metoprolol Tartrate [Lopressor] 50 mg PO BID 07/31/22 07/31/22 Previous Rx's Medication Instructions Recorded Apixaban [Eliquis] 5 mg PO BID #60 tab 07/15/22 Atorvastatin [Lipitor] 20 mg PO HS #30 tab 07/15/22 Allergies Allergy/AdvReac Type Severity Reaction Status Date / Time No Known Allergies Allergy Verified 07/31/22 13:53 Review of Systems ROS Statement: Those systems with pertinent positive or pertinent negative responses have been documented in the HPI. ROS Other: All systems not noted in ROS Statement are negative. Past Medical History Past Medical History: Atrial Flutter, GERD/Reflux, Hyperlipidemia, Sleep Apnea/CPAP/BIPAP Additional Past Medical History / Comment(s): SLEEP APNEA-NO MACHINE, hiatal hernia History of Any Multi-Drug Resistant Organisms: None Reported Past Surgical History: Cholecystectomy, Orthopedic Surgery Additional Past Surgical History / Comment(s): CERVICAL FUSION, "WRAP " FOR GERD (DEIDRE). RIGHT KNEE ARTHROSCOPY. Past Anesthesia/Blood Transfusion Reactions: No Reported Reaction Past Psychological History: Depression Smoking Status: Former smoker Past Alcohol Use History: None Reported Past Drug Use History: None Reported - Past Family History Mother Family Medical History: Cancer Father Family Medical History: Cancer General Exam Limitations: no limitations General appearance: alert, in no apparent distress Head exam: Present: atraumatic, normocephalic Eye exam: Present: normal appearance, PERRL ENT exam: Present: normal exam Neck exam: Present: normal inspection. Absent: tenderness, meningismus Respiratory exam: Present: normal lung sounds bilaterally. Absent: respiratory distress, wheezes Cardiovascular Exam: Present: regular rate, irregular rhythm GI/Abdominal exam: Present: soft. Absent: distended, tenderness, guarding, rebound Extremities exam: Present: normal inspection, normal capillary refill. Absent: calf tenderness Neurological exam: Present: alert, oriented X3, CN II-XII intact. Absent: motor sensory deficit Psychiatric exam: Present: normal affect, normal mood Skin exam: Present: warm, dry, intact. Absent: cyanosis, diaphoretic Course Vital Signs 07/31/22 07/31/22 12:49 13:30 Temperature 98.2 F Pulse Rate 55 L 80 Respiratory 16 20 Rate Blood Pressure 140/102 139/100 O2 Sat by Pulse 98 97 Oximetry EKG Findings - EKG Comments: EKG Findings:: Atrial flutter rate of 80 QRS duration 117, QTC 419, no ST segment elevation, there is a moderate intraventricular conduction delay - EKG Results: EKG: interpreted by GAURAV Medical Decision Making - Medical Decision Making Was pt. sent in by a medical professional or institution (, PA, [employer] RO[employer], urgent care, hospital, or penitentiary...) When possible be specific @ -No Did you speak to anyone other than the patient for history (EMS, parent, family, police, friend...)? What history was obtained from this source @ -No Did you review nursing and triage notes (agree or disagree)? Why? @ -I reviewed and agree with nursing and triage notes Were old charts reviewed (outside hosp., previous admission, EMS record, old EKG, old radiological studies, urgent care reports/EKG's, penitentiary records)? Report findings @Recent hospital admission with atrial flutter and negative cardiac enzymes Differential Diagnosis (chest pain, altered mental status, abdominal pain women, abdominal pain men, vaginal bleeding, weakness, fever, dyspnea, syncope, headache, dizziness, GI bleed, back pain, seizure, CVA, palpatations, mental health, musculoskeletal)? @ Differential Chest Pain: Stable Angina, Unstable Angina, STEMI, NSTEMI Aortic Dissection, Pneumothorax, Musculoskeletal, Esophageal Spasm GERD, Cholecystitis, Pancreatitis, Zoster, this is not meant to be an all-inclusive list. EKG interpreted by me (3pts min.). @ -As above X-rays interpreted by me (1pt min.). @Chest x-ray negative for acute cardiopulmonary findings CT interpreted by me (1pt min.). @ -None done U/S interpreted by me (1pt. min.). @ -None done What testing was considered but not performed or refused? (CT, X-rays, U/S, labs)? Why? @ -None What meds were considered but not given or refused? Why? @ -None Did you discuss the management of the patient with other professionals (professionals i.e. , PA, [employer] RO[employer], lab, RT, psych nurse, social media assistant, materials handling coordinator, teacher, multisensor intelligence officer, case fitter)? Give summary @ Dr. Abreu Was smoking cessation discussed for >3mins.? @ -No Was critical care preformed (if so, how long)? @ -No Were there social determinants of health that impacted care today? How? (Homelessness, low income, unemployed, alcoholism, drug addiction, transportation, low edu. Level, literacy, decrease access to med. care, penitentiary, rehab)? @ -No Was there de-escalation of care discussed even if they declined (Discuss DNR or withdrawal of care, Hospice)? DNR status @ -No What co-morbidities impacted this encounter? (DM, HTN, Smoking, COPD, CAD, Cancer, CVA, ARF, Chemo, Hep., AIDS, mental health diagnosis, sleep apnea, morbid obesity)? @Atrial flutter Was patient admitted / discharged? Hospital course, mention meds given and route, prescriptions, significant lab abnormalities, going to OR and other pertinent info. @61-year-old male presenting with chest pain and palpitations. Patient does have history of reflux and recent diagnosis of atrial flutter. He's in rate controlled A. fib flutter on EKG without ST segment elevation. Chest x-ray is clear. He has normal CBC, normal CMP, negative initial troponin. He will be observed for serial cardiac enzymes, telemetry, cardiology consultation. Undiagnosed new problem with uncertain prognosis? @ -No Drug Therapy requiring intensive monitoring for toxicity (Heparin, Nitro, Insulin, Cardizem)? @ -No Were any procedures done? @ -No Diagnosis/symptom? @Chest pain, A. flutter Acute, or Chronic, or Acute on Chronic? @Acute] Uncomplicated (without systemic symptoms) or Complicated (systemic symptoms)? @Complicated Side effects of treatment? @ -No Exacerbation, Progression, or Severe Exacerbation? @ -No Poses a threat to life or bodily function? How? (Chest pain, USA, ME, pneumonia, PE, COPD, DKA, ARF, appy, cholecystitis, CVA, Diverticulitis, Homicidal, Suicida l, threat to staff... and all critical care pts) @Chest pain, arrhythmia, cardiac ischemia - Lab Data Result diagrams: 07/31/22 13:04 07/31/22 13:04 Lab Results 07/31/22 07/31/22 07/31/22 Range/Units 13:04 13:04 13:04 WBC 11.2 H (3.8-10.6) k/uL RBC 5.26 (4.30-5.90) m/uL Hgb 16.3 (13.0-17.5) gm/dL Hct 50.2 (39.0-53.0) % MCV 95.5 (80.0-100.0) fL MCH 31.0 (25.0-35.0) pg MCHC 32.4 (31.0-37.0) g/dL RDW 12.5 (11.5-15.5) % Plt Count 198 (150-450) k/uL MPV 8.3 Neutrophils % 62 % Lymphocytes % 29 % Monocytes % 3 % Eosinophils % 4 % Basophils % 0 % Neutrophils # 7.0 (1.3-7.7) k/uL Lymphocytes # 3.3 (1.0-4.8) k/uL Monocytes # 0.4 (0-1.0) k/uL Eosinophils # 0.4 (0-0.7) k/uL Basophils # 0.1 (0-0.2) k/uL PT 10.8 (9.0-12.0) sec INR 1.0 (<1.2) APTT 27.2 (22.0-30.0) sec Sodium 140 (137-145) mmol/L Potassium 4.7 (3.5-5.1) mmol/L Chloride 104 (98-107) mmol/L Carbon Dioxide 25 (22-30) mmol/L Anion Gap 11 mmol/L BUN 24 H (9-20) mg/dL Creatinine 1.11 (0.66-1.25) mg/dL Est GFR (CKD-EPI)AfAm 82 (>60 ml/min/1.73 sqM) Est GFR (CKD-EPI)NonAf 71 (>60 ml/min/1.73 sqM) Glucose 103 H (74-99) mg/dL Calcium 9.2 (8.4-10.2) mg/dL Magnesium 2.2 (1.6-2.3) mg/dL Total Bilirubin 1.5 H (0.2-1.3) mg/dL AST 34 (17-59) U/L ALT 53 H (4-49) U/L Alkaline Phosphatase 104 (38-126) U/L Troponin I (0.000-0.034) ng/mL Total Protein 7.4 (6.3-8.2) g/dL Albumin 4.3 (3.5-5.0) g/dL 07/31/22 Range/Units 13:04 WBC (3.8-10.6) k/uL RBC (4.30-5.90) m/uL Hgb (13.0-17.5) gm/dL Hct (39.0-53.0) % MCV (80.0-100.0) fL MCH (25.0-35.0) pg MCHC (31.0-37.0) g/dL RDW (11.5-15.5) % Plt Count (150-450) k/uL MPV Neutrophils % % Lymphocytes % % Monocytes % % Eosinophils % % Basophils % % Neutrophils # (1.3-7.7) k/uL Lymphocytes # (1.0-4.8) k/uL Monocytes # (0-1.0) k/uL Eosinophils # (0-0.7) k/uL Basophils # (0-0.2) k/uL PT (9.0-12.0) sec INR (<1.2) APTT (22.0-30.0) sec Sodium (137-145) mmol/L Potassium (3.5-5.1) mmol/L Chloride (98-107) mmol/L Carbon Dioxide (22-30) mmol/L Anion Gap mmol/L BUN (9-20) mg/dL Creatinine (0.66-1.25) mg/dL Est GFR (CKD-EPI)AfAm (>60 ml/min/1.73 sqM) Est GFR (CKD-EPI)NonAf (>60 ml/min/1.73 sqM) Glucose (74-99) mg/dL Calcium (8.4-10.2) mg/dL Magnesium (1.6-2.3) mg/dL Total Bilirubin (0.2-1.3) mg/dL AST (17-59) U/L ALT (4-49) U/L Alkaline Phosphatase (38-126) U/L Troponin I <0.012 (0.000-0.034) ng/mL Total Protein (6.3-8.2) g/dL Albumin (3.5-5.0) g/dL Disposition Clinical Impression: Atrial flutter, Chest pain Disposition: ADMITTED IP TO THIS HOSP Condition: Stable Is patient prescribed a controlled substance at d/c from ED?: No Referrals: Shanon Abreu DO [Primary Care Provider] - 1-2 days Time of Disposition: 14:14
[2022-07-31 13:30] LABS: Partial Thromboplastin Time 27.2 sec (22.0-30.0); Prothrombin Time 10.8 sec (9.0-12.0)
[2022-07-31] MEDS ORDERED: ACETAMINOPHEN TAB 325 MG TAB PO PRN (14:11)
[2022-07-31] MEDS ORDERED: NALOXONE 0.4 MG/ML 1 ML VIAL IV PRN (14:11)
[2022-07-31] MEDS: APIXABAN 5 MG TAB PO SCH (20:14)
[2022-07-31] MEDS: METOPROLOL TARTRATE 50 MG TAB PO SCH (20:14)
[2022-07-31] MEDS ORDERED: ATORVASTATIN 20 MG TAB PO SCH (21:00)
[2022-07-31] MEDS ORDERED: PANTOPRAZOLE 40 MG TABLET PO SCH (21:00)
[2022-07-31] MEDS ORDERED: lamoTRIgine 100 MG TAB PO SCH (21:00)
[2022-08-01] MEDS ORDERED: REGADENOSON 0.4 MG/5 ML SYRINGE IV PRN (08:33)
[2022-08-01] MEDS ORDERED: AMINOPHYLLINE 500 MG/20 ML VIAL IV PRN (08:33)
[2022-08-01] MEDS ORDERED: CAFFEINE CITRATE 60 MG/3 ML VIAL IV PRN (08:33)
[2022-08-01] MEDS ORDERED: AMIODARONE 200 MG TAB PO SCH (09:00)
[2022-08-01] MEDS ORDERED: buPROPion SR 100 MG TABLET.ER PO SCH (09:00)
[2022-08-01] MEDS ORDERED: SIMETHICONE 40 MG/0.6 ML DROPS 2,000 MG/30 ML BOTTLE PO SCH (09:00)
--- NOTE | 2022-08-01 10:26 | P.CRDCN ---
History of Present Illness Consult date: 08/01/22 Consult reason: atrial flutter, chest pain Chief complaint: chest pain History of present illness: History of present illness: Patient is a pleasant 61-year-old male with significant past medical history of GERD, hyperlipidemia, obstructive sleep apnea not on CPAP, prior tobacco abuse, recent diagnosis of atrial flutter who presented with chest pains. On 07/13/22 he went in for an upper GI was found to be in atrial flutter and therefore was admitted to the hospital. He follows with Dr. William in the office. He does report that he saw Dr. William last week in the office and was started on amiodarone 07/28/22 with plans for cardioversion in a few weeks. He reports that he had to stop one of his depression medications due to starting amiodarone, this medication appears to be Seroquel. He reports that he has not slept since starting the new medication and stopping the other. He was feeling chest pain and palpitations yesterday, he also felt warm and lightheaded. He relates most of his symptoms are due to lack of sleep. The chest pain was midsternal, nonradiating, and occurred at rest. He states he is not very active at home. Labs reviewed: Troponin negative 3, WBC 11.2, creatinine 1.11. EKG shows a trial flutter at 80 bpm. He had a recent echocardiogram 07/13/22 that showed ejection fraction 4550%, mild to moderate mitral regurgitation. He reports feeling better this morning no chest pain currently. Denies any shortness breath, lightheadedness, dizziness, syncope. REVIEW OF SYSTEMS: No fever or chills. No cough or expectoration. No diaphoresis. Patient denies headache, dizziness, blurred vision, double vision. Patient denies any stomach discomfort. No nausea, vomiting. No hematochezia. No hematemesis. Denies any black stools or blood in his stools. Denies dysuria or hematuria. No muscle weakness or numbness. No chest pain or pressure. PHYSICAL EXAMINATION: This is a 61-year-old male in no apparent distress at the time of my examination. HEENT: Head is atraumatic, normocephalic. Pupils are equal, round. Mucous membranes of the mouth are moist. There is no jugular venous distention. No carotid bruit is heard. CHEST EXAMINATION: Lungs are clear to auscultation. No chest wall tenderness is noted on palpation or with deep breathing. HEART EXAMINATION: Heart irregular rate and irregular rhythm. S1, S2 heard. No murmurs, gallops or rub. ABDOMEN: Soft, nontender. Bowel sounds are heard. No organomegaly noted. EXTREMITIES: 2+ peripheral pulses with no evidence of peripheral edema and no calf tenderness noted. NEUROLOGIC EXAMINATION: Patient is awake, alert and oriented x3. Ambulatory with steady gait. IMPRESSION AND PLAN: Atrial flutter, rate controlled Chest pain GERD Hyperlipidemia Obstructive sleep apnea Prior history of tobacco use PLAN: Patient had a recent echocardiogram last month, no need to repeat at this time. However, he has not had a stress test, therefore we'll proceed with Lexiscan stress test to rule out inducible ischemia. Check TSH. It is okay to stop amiodarone if he needs to resume his depression medications including Seroquel. Continue metoprolol and Eliquis. If stress testing is negative OK to DC from cardiology standpoint and follow up in [address] William. I am dictating on behalf of Dr. Miguel Victoria's history/physical and assessment/plan. Past Medical History Past Medical History: Atrial Flutter, GERD/Reflux, Hyperlipidemia, Sleep Apnea/CPAP/BIPAP Additional Past Medical History / Comment(s): SLEEP APNEA-NO MACHINE, hiatal hernia History of Any Multi-Drug Resistant Organisms: None Reported Past Surgical History: Cholecystectomy, Orthopedic Surgery Additional Past Surgical History / Comment(s): CERVICAL FUSION, "WRAP " FOR GERD (DEIDRE). RIGHT KNEE ARTHROSCOPY. Past Anesthesia/Blood Transfusion Reactions: No Reported Reaction Past Psychological History: Depression Smoking Status: Former smoker Past Alcohol Use History: None Reported Additional Past Alcohol Use History / Comment(s): QUIT 2021,SMOKED 1/2 PPD, STARTED SMOKING AGE 17. Past Drug Use History: None Reported - Past Family History Mother Family Medical History: Cancer Father Family Medical History: Cancer Medications and Allergies Home Medications Medication Instructions Recorded Confirmed Type Aspirin 81 mg PO DAILY 04/25/18 07/31/22 History lamoTRIgine [LaMICtal] 200 mg PO HS 04/25/18 07/31/22 History Multivitamins, Thera [Multivitamin 1 tab PO DAILY 12/13/20 07/31/22 History (formulary)] Omeprazole 40 mg PO HS 07/10/22 07/31/22 History buPROPion HCL [Wellbutrin SR] 200 mg PO DAILY 07/13/22 07/31/22 History Apixaban [Eliquis] 5 mg PO BID #60 tab 07/15/22 07/31/22 Rx Atorvastatin [Lipitor] 20 mg PO HS #30 tab 07/15/22 07/31/22 Rx Amiodarone [Cordarone] 200 mg PO DAILY 07/31/22 07/31/22 History Metoprolol Tartrate [Lopressor] 50 mg PO BID 07/31/22 07/31/22 History Allergies Allergy/AdvReac Type Severity Reaction Status Date / Time No Known Allergies Allergy Verified 07/31/22 13:53 Physical Exam Vitals: Vital Signs Temp Pulse Pulse Pulse Resp BP BP 08/01/22 07:59 08/01/22 07:00 97.7 F 55 L 16 126/79 08/01/22 00:57 97.7 F 74 18 109/71 07/31/22 20:00 16 07/31/22 19:00 97.7 F 45 L 16 127/62 07/31/22 15:02 88 18 126/92 07/31/22 15:00 97.5 F L 74 18 137/97 07/31/22 13:30 80 20 139/100 07/31/22 12:49 98.2 F 55 L 16 140/102 Pulse Ox FiO2 08/01/22 07:59 96 21 08/01/22 07:00 96 08/01/22 00:57 95 07/31/22 20:00 07/31/22 19:00 98 07/31/22 15:02 96 07/31/22 15:00 92 L 07/31/22 13:30 97 07/31/22 12:49 98 Intake and Output 07/31/22 08/01/22 08/01/22 22:59 06:59 14:59 Intake Total 120 0 Balance 120 0 Intake: Oral 120 0 Other: Voiding Method Toilet # Voids 1 2 Weight 92.533 kg Results 07/31/22 13:04 07/31/22 13:04 Cardiac Enzymes 07/31/22 07/31/22 07/31/22 Range/Units 13:04 13:04 15:36 AST 34 (17-59) U/L Troponin I <0.012 <0.012 (0.000-0.034) ng/mL 07/31/22 Range/Units 19:51 AST (17-59) U/L Troponin I <0.012 (0.000-0.034) ng/mL Coagulation 07/31/22 Range/Units 13:04 PT 10.8 (9.0-12.0) sec APTT 27.2 (22.0-30.0) sec CBC 07/31/22 Range/Units 13:04 WBC 11.2 H (3.8-10.6) k/uL RBC 5.26 (4.30-5.90) m/uL Hgb 16.3 (13.0-17.5) gm/dL Hct 50.2 (39.0-53.0) % Plt Count 198 (150-450) k/uL Comprehensive Metabolic Panel 07/31/22 Range/Units 13:04 Sodium 140 (137-145) mmol/L Potassium 4.7 (3.5-5.1) mmol/L Chloride 104 (98-107) mmol/L Carbon Dioxide 25 (22-30) mmol/L BUN 24 H (9-20) mg/dL Creatinine 1.11 (0.66-1.25) mg/dL Glucose 103 H (74-99) mg/dL Calcium 9.2 (8.4-10.2) mg/dL AST 34 (17-59) U/L ALT 53 H (4-49) U/L Alkaline Phosphatase 104 (38-126) U/L Total Protein 7.4 (6.3-8.2) g/dL Albumin 4.3 (3.5-5.0) g/dL Current Medications Generic Name Dose Route Start Last Admin Trade Name Freq PRN Reason Stop Dose Admin Acetaminophen 650 mg 07/31/22 14:11 Acetaminophen Tab 325 Mg Tab PO Q6HR PRN Mild Pain or Fever > 100.5 Aminophylline 100 mg 08/01/22 08:33 Aminophylline 500 Mg/20 Ml Vial IV 08/01/22 12:34 ONCE PRN Patient Response Amiodarone HCl 200 mg 08/01/22 09:00 Amiodarone 200 Mg Tab PO DAILY CHRIS Apixaban 5 mg 07/31/22 21:00 07/31/22 20:14 Apixaban 5 Mg Tab PO 5 mg BID CHRIS Administration Protocol Atorvastatin Calcium 20 mg 07/31/22 21:00 07/31/22 20:14 Atorvastatin 20 Mg Tab PO 20 mg HS CHRIS Administration Bupropion HCl 200 mg 08/01/22 09:00 Bupropion Sr 100 Mg Tablet.Er PO DAILY CHRIS Caffeine Citrate 60 mg 08/01/22 08:33 Caffeine Citrate 60 Mg/3 Ml Vial IV 08/01/22 12:34 ONCE PRN Patient Response Lamotrigine 200 mg 07/31/22 21:00 07/31/22 20:14 Lamotrigine 100 Mg Tab PO 200 mg HS CHRIS Administration Metoprolol Tartrate 50 mg 07/31/22 21:00 07/31/22 20:14 Metoprolol Tartrate 50 Mg Tab PO 50 mg BID CHRIS Administration Naloxone HCl 0.2 mg 07/31/22 14:11 Naloxone 0.4 Mg/Ml 1 Ml Vial IV Q2M PRN Opioid Reversal Pantoprazole Sodium 40 mg 07/31/22 21:00 07/31/22 20:14 Pantoprazole 40 Mg Tablet PO 40 mg HS CHRIS Administration Regadenoson 0.4 mg 08/01/22 08:33 Regadenoson 0.4 Mg/5 Ml Syringe IV 08/01/22 12:34 ONCE PRN Per Protocol Simethicone 20 mg 08/01/22 09:00 Simethicone 40 Mg/0.6 Ml Drops 2,000 Mg/30 Ml Bottle PO QID CHRIS Intake and Output 07/31/22 08/01/22 08/01/22 22:59 06:59 14:59 Intake Total 120 0 Balance 120 0 Intake: Oral 120 0 Other: Voiding Method Toilet # Voids 1 2 Weight 92.533 kg 07/31/22 13:04 07/31/22 13:04
[2022-08-01] MEDS: METOPROLOL TARTRATE 50 MG TAB PO SCH (12:34)
[2022-08-01] MEDS: APIXABAN 5 MG TAB PO SCH (12:34)
--- NOTE | 2022-08-01 12:55 | NM ---
EXAMINATION TYPE: NM stress lexiscan cardiolite DATE OF EXAM: 08/01/2022 COMPARISON: NONE CLINICAL INDICATION: Male, 61 years old with history of re: chest pain; TECHNIQUE: After the intravenous administration of 10.5 mCi Tc 99m Sestamibi - Cardiolite resting SP ECT images acquired 45 minutes post injection. The patient received 0.4mg Lexiscan, 26.5 mCi Tc 99m Sestamibi - Stress images obtained [address] injection FINDINGS: Review of stress and rest SPECT images demonstrates no distinct perfusion abnormality. Gated analysi s shows normal wall motion with an estimated left ventricular ejection fraction of 32 %. IMPRESSION: No scintigraphic evidence for reversible ischemia. Ejection fraction measures only 32% correlate clin ically.
[2022-08-01] MEDS ORDERED: SIMETHICONE 80 MG CHEWABLE PO SCH (13:00)
[2022-08-01 14:11] VITALS: BP 126/90; PULSE 91; RESP 18; TEMP 97.5
--- NOTE | 2022-08-01 16:54 | CA ---
Lexiscan Nuclear Stress Test Report Name: Jaden Corbin Exam Date: 08/01/2022 11:04 Exam Location: [facility] Stress Ht (in): 68 Wt (lb): 204 BSA: 2.06 Ordering Phys: Miguel Victoria DO Referring Phys: ARY, Technologist: NATALYA,, Age: 61 Gender: M : 1960 Procedure CPT: Indications: Reflex order-Stress test ICD-10 Codes: Patient History: Chest pain Medications: Meds past 24 hrs: Pretest Chest Pain: STRESS TEST Lexiscan Protocol Exercise Duration (min:sec): 01:[address] Depressions (mm): Angina Score: Lopez Score: Resting HR (bpm): 83 Peak HR (bpm): 112 Resting BP (mmHg): 130 / 94 Peak BP (mmHg): 120 / 80 MPHR: 158 Target HR: 134 % MPHR: 71 METS: 1.0 Total Dose: Peak Dose: Atropine: Double Product: 85333 BP Response: Stress Termination: Infusion complete Stress Symptoms: Dizziness Stress Summary: ECG ANALYSIS Resting ECG: Stress ECG: CONCLUSIONS At baseline EKG showed atrial flutter with normal axis with nonspecific T-wave flattening in the inferior lateral leads. Patient recieved IV infusion of Lexiscan 0.4mg and at peak infusion EKG showed no significant change from baseline. Conclusions: 1. Nonspecific EKG portion secondary baseline EKG abnormalities with atrial flutter. 2. Nuclear imaging to be reported separately. Dr. Miguel Victoria DO (Electronically Signed) Final Date: 01 Aug 2022 16:53
--- NOTE | 2022-08-01 17:26 | P.HPIM ---
History of Present Illness H&P Date: 08/01/22 Chief Complaint: Rapid atrial flutter History and Physical and Discharge Summary: This is a pleasant 61-year-old gentleman with past medical history significant for recently diagnosed atrial flutter in June 2022, gastroesophageal reflux disease, hyperlipidemia, sleep apnea, depression, former nicotine dependence and multiple other medical issues. Reports she followed with Dr. Deluca in the office last week on Sunday and was started on amiodarone with plans for BACILIO/cardioversion on the . Reports his pharmacy contacted him that he was n ot able to take both his Seroquel and the amiodarone together .states he has not slept well since his Seroquel was discontinued .developed nonradiating fluctuating midsternal chest pressure at rest. Denies shortness of breath. Denies syncope. Denies lightheadedness, dizziness or focal deficits. Denies nausea vomiting or diarrhea. Passing flatus, complains of inability to burp. Gas-X ordered. Vague historian.On admission, EKG reported atrial flutter, 80s. Troponins negative 3. Recent echo on 07/13 reported EF of 45-50%. Renal function stable. Afebrile, WBC 11.2. Cardiology consult in place. Review of Systems ROS Statement: Those systems with pertinent positive or pertinent negative responses have been documented in the HPI. ROS Other: All systems not noted in ROS Statement are negative. Past Medical History Past Medical History: Atrial Flutter, GERD/Reflux, Hyperlipidemia, Sleep Apnea/CPAP/BIPAP Additional Past Medical History / Comment(s): SLEEP APNEA-NO MACHINE, hiatal hernia History of Any Multi-Drug Resistant Organisms: None Reported Past Surgical History: Cholecystectomy, Orthopedic Surgery Additional Past Surgical History / Comment(s): CERVICAL FUSION, "WRAP " FOR GERD (DEIDRE). RIGHT KNEE ARTHROSCOPY. Past Anesthesia/Blood Transfusion Reactions: No Reported Reaction Past Psychological History: Depression Smoking Status: Former smoker Past Alcohol Use History: None Reported Additional Past Alcohol Use History / Comment(s): QUIT 2021,SMOKED 1/2 PPD, STARTED SMOKING AGE 17. Past Drug Use History: None Reported - Past Family History Mother Family Medical History: Cancer Father Family Medical History: Cancer Medications and Allergies Home Medications Medication Instructions Recorded Confirmed Type Aspirin 81 mg PO DAILY 04/25/18 07/31/22 History lamoTRIgine [LaMICtal] 200 mg PO HS 04/25/18 07/31/22 History Multivitamins, Thera [Multivitamin 1 tab PO DAILY 12/13/20 07/31/22 History (formulary)] Omeprazole 40 mg PO HS 07/10/22 07/31/22 History buPROPion HCL [Wellbutrin SR] 200 mg PO DAILY 07/13/22 07/31/22 History Apixaban [Eliquis] 5 mg PO BID #60 tab 07/15/22 07/31/22 Rx Atorvastatin [Lipitor] 20 mg PO HS #30 tab 07/15/22 07/31/22 Rx Amiodarone [Cordarone] 200 mg PO DAILY 07/31/22 07/31/22 History Metoprolol Tartrate [Lopressor] 50 mg PO BID 07/31/22 07/31/22 History cloNIDine HCL 0.1 mg PO HS #30 tablet 08/01/22 Rx Allergies Allergy/AdvReac Type Severity Reaction Status Date / Time No Known Allergies Allergy Verified 07/31/22 13:53 Physical Exam Vitals: Vital Signs Temp Pulse Pulse Resp BP Pulse Ox FiO2 08/01/22 14:09 97.5 F L 91 18 126/90 98 08/01/22 07:59 96 21 08/01/22 07:00 97.7 F 55 L 16 126/79 96 08/01/22 00:57 97.7 F 74 18 109/71 95 07/31/22 20:00 16 07/31/22 19:00 97.7 F 45 L 16 127/62 98 Intake and Output 08/01/22 08/01/22 08/01/22 06:59 14:59 22:59 Intake Total 0 Balance 0 Intake: Oral 0 Other: # Voids 2 2 PHYSICAL EXAMINATION: GEN:Patient is sitting up at the site of bed comfortably, no acute distress, awake alert and oriented 3. HEENT: Normocephalic. Neck is supple. Pupils reactive. Neckz: Supple, no JVD, carotid bruits, or thyromegaly. CHEST EXAMINATION: Unlabored, equal air entry. Lung barajas clear to auscultation. CARDIAC: Normal S1, S2 with no gallops. No murmurs. Irregularly irregular rhythm. ABDOMEN: Soft. Bowel sounds present. Nontender. No organomegaly. No abdominal bruits. Extremities: reveal no edema. No clubbing or cyanosis Neurological: Cranial nerves II through XII grossly intact, No focal deficits noted. Strength and sensation grossly intact. Skin: Warm and dry, No rash. Results CBC & Chem 7: 07/31/22 13:04 07/31/22 13:04 Thrombosis Risk Factor Assmnt - Choose All That Apply Each Risk Factor Represents 2 Points: Age 61-74 years Thrombosis Risk Factor Assessment Total Risk Factor Score: 2 Thrombosis Risk Factor Assessment Level: Low Risk Assessment and Plan Assessment: Chest pain with Chronic Atrial flutter ,recently diagnosed in June 2022, troponins negative 3 Mild cardiomyopathy Obesity, BMI 31 Obstructive sleep apnea History of hiatal hernia Gastroesophageal reflux disease Hyperlipidemia Former nicotine dependence Depression Plan: Continue on current medication regime ,monitoring and symptomatic treatment. Significant clinical improvement . Denies chest pain, palpitations or shortness of breath. Evaluated by cardiology, recommendations noted including Lexiscan stress test. Patient will be discharged home today in a stable condition with guarded prognosis pending stress test results, final DC recommendations/antiarrhythmics and clearance per cardiology. Patient unable to take Seroquel with amiodarone therefore at at bedtime, will try clonidine. Discharge Medication List Aspirin 81 mg PO DAILY 04/25/18 [History] lamoTRIgine [LaMICtal] 200 mg PO HS 04/25/18 [History] Multivitamins, Thera [Multivitamin (formulary)] 1 tab PO DAILY 12/13/20 [History] Omeprazole 40 mg PO HS 07/10/22 [History] buPROPion HCL [Wellbutrin SR] 200 mg PO DAILY 07/13/22 [History] Apixaban [Eliquis] 5 mg PO BID #60 tab 07/15/22 [Rx] Atorvastatin [Lipitor] 20 mg PO HS #30 tab 07/15/22 [Rx] Amiodarone [Cordarone] 200 mg PO DAILY 07/31/22 [History] Metoprolol Tartrate [Lopressor] 50 mg PO BID 07/31/22 [History] cloNIDine HCL 0.1 mg PO HS #30 tablet 08/01/22 [Rx] The impression and plan of care has been dictated as directed. : I performed a history and examination of this patient, discussed the same with the dictator. I agree with the dictator's note ,documented as a scribe. Any additional findings or plans will be noted.
== END 2022-08-01 14:42 | disposition home or self-care (01) ==
LOC: EC 12:42 → 6NMEDSUR 14:11
PROVIDERS: ADMIT Family Medicine; ATTEND Family Medicine
DX: I48.92 Unspecified atrial flutter (principal); R07.89 Other chest pain; I42.9 Cardiomyopathy, unspecified; I34.0 Nonrheumatic mitral (valve) insufficiency; K21.9 Gastro-esophageal reflux disease without esophagitis; E78.5 Hyperlipidemia, unspecified; G47.33 Obstructive sleep apnea (adult) (pediatric); K44.9 Diaphragmatic hernia without obstruction or gangrene; F32.A Depression, unspecified; Z68.31 Body mass index [BMI] 31.0-31.9, adult; E66.9 Obesity, unspecified; Z79.82 Long term (current) use of aspirin; Z79.01 Long term (current) use of anticoagulants; Z79.899 Other long term (current) drug therapy; Z90.49 Acquired absence of other specified parts of digestive tract; Z87.891 Personal history of nicotine dependence; Z98.1 Arthrodesis status; Z98.890 Other specified postprocedural states; Z80.9 Family history of malignant neoplasm, unspecified
CPT/HCPCS: 99285; 36415; 94760; 93005; 93017; 80053; 84443; 83735; 84484; 85025; 85610; 85730; 71046; 78452; G0378 ×2; A9500; S0106; J2785

== ENCOUNTER 2022-08-02 21:01 | Emergency (ER) | payer MEDICARE ==
[2022-08-02 21:18] VITALS: TEMP 98
[2022-08-02 22:30] VITALS: BP 113/79; PULSE 78; RESP 16
[2022-08-02 22:50] LABS: Basophils # (A) 0.1 k/uL (0-0.2); Basophils % (A) 1 %; Eosinophils # (A) 0.6 k/uL (0-0.7); Eosinophils % (A) 6 %; HCT 47.2 % (39.0-53.0); HGB 15.5 gm/dL (13.0-17.5); Lymphocytes # (A) 3.8 k/uL (1.0-4.8); Lymphocytes % (A) 40 %; MCH 30.9 pg (25.0-35.0); MCHC 32.7 g/dL (31.0-37.0); MCV 94.5 fL (80.0-100.0); Mean Platelet Volume 8.4; Monocytes # (A) 0.5 k/uL (0-1.0); Monocytes % (A) 5 %; Neutrophils # (A) 4.4 k/uL (1.3-7.7); Neutrophils % (A) 47 %; Platelet Count 193 k/uL (150-450); RBC 4.99 m/uL (4.30-5.90); RDW 12.5 % (11.5-15.5); WBC 9.4 k/uL (3.8-10.6)
[2022-08-02 22:56] LABS: Bacteria,Urine Few /hpf; Mucus,Urine Many /hpf; Squamous Epithelial Cell,Urine 6 /hpf (0-4); WBC,Urine 26 /hpf (0-5)
[2022-08-02 22:58] LABS: Appearance,Urine Turbid (Clear); Color,Urine Brown
[2022-08-02 23:01] LABS: RBC,Urine >182 /hpf (0-5)
[2022-08-02 23:02] LABS: INR 1.1 (<1.2); Partial Thromboplastin Time 26.4 sec (22.0-30.0); Prothrombin Time 11.2 sec (9.0-12.0)
[2022-08-02 23:09] LABS: Calcium 9.4 mg/dL (8.4-10.2); Potassium 4.4 mmol/L (3.5-5.1)
[2022-08-02] MEDS ORDERED: SULFAMETHOX-TMP 800-160MG 1 EACH TAB PO STA (23:44)
--- NOTE | 2022-08-02 23:47 | ED ---
General Adult HPI - General Chief complaint: Urogenital Stated complaint: Blood in Urine Time Seen by Provider: 08/02/22 22:12 Source: patient, RN notes reviewed, old records reviewed Mode of arrival: ambulatory Limitations: no limitations - History of Present Illness Initial comments: Patient is a 61-year-old male who presents emergency Department complaining of hematuria. Was also having some discomfort at his urethral meatus. Symptoms have been ongoing for 2 days. Exacerbation is on a blood thinner for atrial flutter. Denies any other symptoms including abdominal pain, nausea, vomiting, chest pain, shortness of breath. Presents for further evaluation at this time. Denies any testicular pain. Denies any history of UTIs. No fevers. - Related Data Home Medications Medication Instructions Recorded Confirmed Aspirin 81 mg PO DAILY 04/25/18 07/31/22 lamoTRIgine [LaMICtal] 200 mg PO HS 04/25/18 07/31/22 Multivitamins, Thera [Multivitamin 1 tab PO DAILY 12/13/20 07/31/22 (formulary)] Omeprazole 40 mg PO HS 07/10/22 07/31/22 buPROPion HCL [Wellbutrin SR] 200 mg PO DAILY 07/13/22 07/31/22 Amiodarone [Cordarone] 200 mg PO DAILY 07/31/22 07/31/22 Metoprolol Tartrate [Lopressor] 50 mg PO BID 07/31/22 07/31/22 Previous Rx's Medication Instructions Recorded Apixaban [Eliquis] 5 mg PO BID #60 tab 07/15/22 Atorvastatin [Lipitor] 20 mg PO HS #30 tab 07/15/22 cloNIDine HCL 0.1 mg PO HS #30 tablet 08/01/22 Sulfamethox-Tmp 800-160Mg [Bactrim 1 tab PO Q12HR 5 Days #10 tab 08/03/22 DS 800-160 mg] Allergies Allergy/AdvReac Type Severity Reaction Status Date / Time No Known Allergies Allergy Verified 08/02/22 21:13 Review of Systems ROS Statement: Those systems with pertinent positive or pertinent negative responses have been documented in the HPI. Review of Systems: CONST: Denies fever EYES: Denies blurry vision ENT: Denies nasal congestion C/V: Denies Chest pain RESP: Denies shortness of breath GI: Denies abdominal pain : Endorses burning at the urethral meatus, hematuria SKIN: Denies rash. MSK: Denies joint pain. NEURO: Denies headache ROS Other: All systems not noted in ROS Statement are negative. Past Medical History Past Medical History: Atrial Flutter, GERD/Reflux, Hyperlipidemia, Sleep Apnea/CPAP/BIPAP Additional Past Medical History / Comment(s): SLEEP APNEA-NO MACHINE, hiatal hernia History of Any Multi-Drug Resistant Organisms: None Reported Past Surgical History: Cholecystectomy, Orthopedic Surgery Additional Past Surgical History / Comment(s): CERVICAL FUSION, "WRAP " FOR GERD (DEIDRE). RIGHT KNEE ARTHROSCOPY. Past Anesthesia/Blood Transfusion Reactions: No Reported Reaction Past Psychological History: Depression Smoking Status: Former smoker Past Alcohol Use History: None Reported Past Drug Use History: None Reported - Past Family History Mother Family Medical History: Cancer Father Family Medical History: Cancer General Exam - General Exam Comments Initial Comments: General: Appears in no acute distress. HEAD: Normal with no signs of head trauma. EYES: EOMI ENT: Hearing grossly intact, normal oropharynx. RESPIRATORY: Clear breath sounds bilaterally. No wheezes, rales, or rhonchi. C/V: Regular rate and rhythm. S1 and S2 auscultated, no edema, peripheral pulses 2+ and intact throughout ABD: Abd is soft, nontender, nondistended : No blood at the urethral meatus. No testicular pain. No obvious hernias. Unremarkable exam. No rashes or lesions. EXT: Normal range of motion, no obvious deformity SKIN: No rashes or lesions observed on exposed skin. NEURO: Alert and oriented 4. Limitations: no limitations Course Vital Signs 08/02/22 08/02/22 21:13 22:29 Temperature 98 F Pulse Rate 68 78 Respiratory 18 16 Rate Blood Pressure 122/79 113/79 O2 Sat by Pulse 98 97 Oximetry Medical Decision Making - Medical Decision Making Was pt. sent in by a medical professional or institution (, PA, JAVA PROGRAMMER ANALYST, urgent care, hospital, or prison...) When possible be specific @ -No Did you speak to anyone other than the patient for history (EMS, parent, family, police, friend...)? What history was obtained from this source @ -No Did you review nursing and triage notes (agree or disagree)? Why? @ -I reviewed and agree with nursing and triage notes Were old charts reviewed (outside hosp., previous admission, EMS record, old EKG, old radiological studies, urgent care reports/EKG's, prison records)? Report findings @ -No old charts were reviewed Differential Diagnosis (chest pain, altered mental status, abdominal pain women, abdominal pain men, vaginal bleeding, weakness, fever, dyspnea, syncope, headach e, dizziness, GI bleed, back pain, seizure, CVA, palpatations, mental health, musculoskeletal)? @ -Painless hematuria, UTI, kidney injury, kidney stone. This list is not all-inclusive. EKG interpreted by me (3pts min.). @ -None done X-rays interpreted by me (1pt min.). @ -None done CT interpreted by me (1pt min.). @ -None done U/S interpreted by me (1pt. min.). @ -None done What testing was considered but not performed or refused? (CT, X-rays, U/S, labs)? Why? @ -None What meds were considered but not given or refused? Why? @ -None Did you discuss the management of the patient with other professionals (professionals i.e. , PA, JAVA PROGRAMMER ANALYST, lab, RT, psych nurse, social studies teacher, assistant to the vice president, teacher, senior vice president and chief information officer, registered nurse hh case manager)? Give summary @ -No Was smoking cessation discussed for >3mins.? @ -No Was critical care preformed (if so, how long)? @ -No Were there social determinants of health that impacted care today? How? (Homelessness, low income, unemployed, alcoholism, drug addiction, transportation, low edu. Level, literacy, decrease access to med. care, residential, rehab)? @ -No Was there de-escalation of care discussed even if they declined (Discuss DNR or withdrawal of care, Hospice)? DNR status @ -No What co-morbidities impacted this encounter? (DM, HTN, Smoking, COPD, CAD, Cancer, CVA, ARF, Chemo, Hep., AIDS, mental health diagnosis, sleep apnea, morbid obesity)? @ -None Was patient admitted / discharged? Hospital course, mention meds given and route, prescriptions, significant lab abnormalities, going to OR and other pertinent info. @ -Based on the patient's presentation and physical exam, presents with relatively painless hematuria. The pain is with sometimes burning sensation at the urethral meatus with urination. Has been ongoing for 2 days. Unknown cause. Presents for further evaluation of this time. Discussed with him we will obtain laboratory studies and imaging if labs warranted. He was in agreement this plan. Vital signs within acceptable limits. Labs showed normal kidney function. Gross hematuria on exam with 26 white cells. No other findings. On reevaluation, patient is asymptomatic. I discussed possible ultrasound but we determine best to follow up outpatient with urology. Will be started on antibiotics. He was in agreement this plan. Strict return precautions discussed. I will provide the patient with a prescription for Bactrim. I instructed the patient to follow up with their PCP in the next 1-3 days. I provided contact information for follow up with urology. I explained that the patient should return to the emergency department if they experience any worsening symptoms. Strict return precautions were discussed with the patient. The patient expressed understanding of these instructions. I answered all questions that the patient had. The patient was discharged home in good condition with their prescriptions and follow up information. Undiagnosed new problem with uncertain prognosis? @ -No Drug Therapy requiring intensive monitoring for toxicity (Heparin, Nitro, Insulin, Cardizem)? @ -No Were any procedures done? @ -No Diagnosis/symptom? @ -Hematuria Acute, or Chronic, or Acute on Chronic? @ -Acute Uncomplicated (without systemic symptoms) or Complicated (systemic symptoms)? @ -Uncomplicated Side effects of treatment? @ -No Exacerbation, Progression, or Severe Exacerbation? @ -No Poses a threat to life or bodily function? How? (Chest pain, USA, IA, pneumonia, PE, COPD, DKA, ARF, appy, cholecystitis, CVA, Diverticulitis, Homicidal, Suicidal, threat to staff... and all critical care pts) @ -No - Lab Data Result diagrams: 08/02/22 22:23 08/02/22 22:23 Lab Results 08/02/22 08/02/22 08/02/22 Range/Units :23 22:: WBC 9.4 (3.8-10.6) k/uL RBC 4.99 (4.30-5.90) m/uL Hgb 15.5 (13.0-17.5) gm/dL Hct 47.2 (39.0-53.0) % MCV 94.5 (80.0-100.0) fL MCH 30.9 (25.0-35.0) pg MCHC 32.7 (31.0-37.0) g/dL RDW 12.5 (11.5-15.5) % Plt Count 193 (150-450) k/uL MPV 8.4 Neutrophils % 47 % Lymphocytes % 40 % Monocytes % 5 % Eosinophils % 6 % Basophils % 1 % Neutrophils # 4.4 (1.3-7.7) k/uL Lymphocytes # 3.8 (1.0-4.8) k/uL Monocytes # 0.5 (0-1.0) k/uL Eosinophils # 0.6 (0-0.7) k/uL Basophils # 0.1 (0-0.2) k/uL PT 11.2 (9.0-12.0) sec INR 1.1 (<1.2) APTT 26.4 (22.0-30.0) sec Sodium (137-145) mmol/L Potassium (3.5-5.1) mmol/L Chloride (98-107) mmol/L Carbon Dioxide (22-30) mmol/L Anion Gap mmol/L BUN (9-20) mg/dL Creatinine (0.66-1.25) mg/dL Est GFR (CKD-EPI)AfAm (>60 ml/min/1.73 sqM) Est GFR (CKD-EPI)NonAf (>60 ml/min/1.73 sqM) Glucose (74-99) mg/dL Calcium (8.4-10.2) mg/dL Urine Color Brown Urine Appearance Turbid (Clear) Urine RBC >182 H (0-5) /hpf Urine WBC 26 H (0-5) /hpf Ur Squamous Epith Cells 6 H (0-4) /hpf Urine Bacteria Few H (None) /hpf Urine Mucus Many H (None) /hpf 08/02/22 Range/Units 22:23 WBC (3.8-10.6) k/uL RBC (4.30-5.90) m/uL Hgb (13.0-17.5) gm/dL Hct (39.0-53.0) % MCV (80.0-100.0) fL MCH (25.0-35.0) pg MCHC (31.0-37.0) g/dL RDW (11.5-15.5) % Plt Count (150-450) k/uL MPV Neutrophils % % Lymphocytes % % Monocytes % % Eosinophils % % Basophils % % Neutrophils # (1.3-7.7) k/uL Lymphocytes # (1.0-4.8) k/uL Monocytes # (0-1.0) k/uL Eosinophils # (0-0.7) k/uL Basophils # (0-0.2) k/uL PT (9.0-12.0) sec INR (<1.2) APTT (22.0-30.0) sec Sodium 143 (137-145) mmol/L Potassium 4.4 (3.5-5.1) mmol/L Chloride 107 (98-107) mmol/L Carbon Dioxide 23 (22-30) mmol/L Anion Gap 13 mmol/L BUN 28 H (9-20) mg/dL Creatinine 1.19 (0.66-1.25) mg/dL Est GFR (CKD-EPI)AfAm 75 (>60 ml/min/1.73 sqM) Est GFR (CKD-EPI)NonAf 65 (>60 ml/min/1.73 sqM) Glucose 100 H (74-99) mg/dL Calcium 9.4 (8.4-10.2) mg/dL Urine Color Urine Appearance (Clear) Urine RBC (0-5) /hpf Urine WBC (0-5) /hpf Ur Squamous Epith Cells (0-4) /hpf Urine Bacteria (None) /hpf Urine Mucus (None) /hpf Disposition Clinical Impression: Hematuria, UTI (urinary tract infection) Disposition: HOME SELF-CARE Condition: Good Instructions (If sedation given, give patient instructions): Urinary Tract Infection in Men (ED) Prescriptions: Sulfamethox-Tmp 800-160Mg [Bactrim DS 800-160 mg] 1 tab PO Q12HR 5 Days #10 tab Is patient prescribed a controlled substance at d/c from ED?: No Referrals: Teo Abreu MD [Primary Care Provider] - 1-2 days Tejinder Chery MD [STAFF PHYSICIAN] - 1-2 days Time of Disposition: 23:29
== END 2022-08-03 00:11 | disposition home or self-care (01) ==
LOC: EC 21:01
DX: N39.0 Urinary tract infection, site not specified (principal); R31.9 Hematuria, unspecified; E78.5 Hyperlipidemia, unspecified; G47.30 Sleep apnea, unspecified; I48.92 Unspecified atrial flutter; K21.9 Gastro-esophageal reflux disease without esophagitis; F32.A Depression, unspecified; Z79.82 Long term (current) use of aspirin; Z79.899 Other long term (current) drug therapy; Z87.891 Personal history of nicotine dependence; Z90.49 Acquired absence of other specified parts of digestive tract
CPT/HCPCS: 36415; 80048; 81001; 85025; 85610; 85730; 87086; 99283

== ENCOUNTER 2022-08-03 15:34 | Emergency (ER) | payer MEDICARE ==
--- NOTE | 2022-08-03 15:38 | ED ---
General Adult HPI - General Source: RN notes reviewed <Gena Moss - Last Filed: 08/03/22 15:38> <Chirag Donato - Last Filed: 08/04/22 00:27> - General Chief complaint: Urogenital Stated complaint: blood in urine Time Seen by Provider: 08/03/22 15:38 - History of Present Illness Initial comments: 61-year-old male presents to the emergency Department chief complaint of blood in urine that started yesterday. Patient was seen and evaluated here at this facility last night for same. (Gena Moss) Patient is a 61-year-old male presenting with chief complaint of adverse reaction to new medication. Patient was seen in our ER yesterday for hematuria. At that time he is also complaining of dysuria. Urine was sent for culture and patient was started on Bactrim. He took a dose at home today and states that af ter he got very nauseous, sweaty, and had tingling all over his body. States that at this time his symptoms have improved. He is having no difficulty breathing or swallowing. No rash. No chest pain. No palpitations. No abdominal pain. No vomiting. No weakness. No abdominal pain. (Chirag Donato) - Related Data Home Medications Medication Instructions Recorded Confirmed Aspirin 81 mg PO DAILY 04/25/18 07/31/22 lamoTRIgine [LaMICtal] 200 mg PO HS 04/25/18 07/31/22 Multivitamins, Thera [Multivitamin 1 tab PO DAILY 12/13/20 07/31/22 (formulary)] Omeprazole 40 mg PO HS 07/10/22 07/31/22 buPROPion HCL [Wellbutrin SR] 200 mg PO DAILY 07/13/22 07/31/22 Amiodarone [Cordarone] 200 mg PO DAILY 07/31/22 07/31/22 Metoprolol Tartrate [Lopressor] 50 mg PO BID 07/31/22 07/31/22 Previous Rx's Medication Instructions Recorded Apixaban [Eliquis] 5 mg PO BID #60 tab 07/15/22 Atorvastatin [Lipitor] 20 mg PO HS #30 tab 07/15/22 cloNIDine HCL 0.1 mg PO HS #30 tablet 08/01/22 Cephalexin [Keflex] 500 mg PO Q6HR 7 Days #28 cap 08/03/22 Sulfamethox-Tmp 800-160Mg [Bactrim 1 tab PO Q12HR 5 Days #10 tab 08/03/22 DS 800-160 mg] Allergies Allergy/AdvReac Type Severity Reaction Status Date / Time No Known Allergies Allergy Verified 08/02/22 21:13 Review of Systems ROS Other: All systems not noted in ROS Statement are negative. <Gena Moss - Last Filed: 08/03/22 15:38> ROS Other: All systems not noted in ROS Statement are negative. <Chirag Donato - Last Filed: 08/04/22 00:27> ROS Statement: Those systems with pertinent positive or pertinent negative responses have been documented in the HPI. Past Medical History Past Medical History: Atrial Flutter, GERD/Reflux, Hyperlipidemia, Sleep Apnea/CPAP/BIPAP Additional Past Medical History / Comment(s): SLEEP APNEA-NO MACHINE, hiatal hernia History of Any Multi-Drug Resistant Organisms: None Reported Past Surgical History: Cholecystectomy, Orthopedic Surgery Additional Past Surgical History / Comment(s): CERVICAL FUSION, "WRAP " FOR GERD (DEIDRE). RIGHT KNEE ARTHROSCOPY. Past Anesthesia/Blood Transfusion Reactions: No Reported Reaction Past Psychological History: Depression Smoking Status: Former smoker Past Alcohol Use History: None Reported Past Drug Use History: None Reported - Past Family History Mother Family Medical History: Cancer Father Family Medical History: Cancer <Gena Moss - Last Filed: 08/03/22 15:38> General Exam <Gena Moss - Last Filed: 08/03/22 15:38> Limitations: no limitations General appearance: alert, in no apparent distress Head exam: Present: atraumatic, normocephalic, normal inspection Eye exam: Present: normal appearance, EOMI. Absent: scleral icterus, periorbital swelling ENT exam: Present: normal oropharynx, mucous membranes moist Neck exam: Present: normal inspection, full ROM Respiratory exam: Present: normal lung sounds bilaterally. Absent: respiratory distress, wheezes, rales, rhonchi, stridor Cardiovascular Exam: Present: regular rate, normal rhythm, normal heart sounds. Absent: systolic murmur, diastolic murmur, rubs, gallop, clicks Neurological exam: Present: alert, oriented X3, CN II-XII intact Psychiatric exam: Present: normal affect, normal mood Skin exam: Present: warm, dry, intact, normal color. Absent: rash <Chirag Donato - Last Filed: 08/04/22 00:27> - General Exam Comments Initial Comments: Visual Physical Exam Vital signs reviewed General: Well-appearing, nontoxic, no acute distress. Head: Normocephalic, atraumatic Eyes: PERRLA, EOMI ENT: Airway patent Chest: Nonlabored breathing Skin: No visual rash, normal skin tone Neuro: Alert and oriented 3 Musculoskeletal: No gross abnormalities (Gena Moss) Course Vital Signs 08/03/22 08/03/22 15:49 17:55 Temperature 98.0 F 98.1 F Pulse Rate 85 60 Respiratory 16 16 Rate Blood Pressure 133/82 123/79 O2 Sat by Pulse 98 97 Oximetry Medical Decision Making - Lab Data Result diagrams: 08/03/22 16:18 08/03/22 16:18 <Chirag Donato - Last Filed: 08/04/22 00:27> - Medical Decision Making Patient is a 61-year-old male presenting with chief complaint of adverse reaction to new medication. Yesterday he was started on Bactrim after he presented to our ER for hematuria and dysuria. Today when he took the medication he experienced nausea, numbness and tingling, and sweating. Symptoms have resolved at this time. On physical examination heart and lungs are clear to auscultation, no signs of angioedema. Patient is not complaining of any difficulty breathing or swallowing. He is nontoxic appearing. Lab work is essentially unchanged from yesterday. Patient's medication will be switched to Keflex. Patient is instructed to discontinue the Bactrim. He is instructed to follow up with urology just as he was instructed yesterday. Follow-up with PCP. Report back to ER with any new or worsening symptoms. Discussed return parameters and answered all questions. Patient conveyed verbal understanding and agreed to the plan. I discussed this case in detail with my attending Dr. Sneed Was pt. sent in by a medical professional or institution (, PA, [employer], urgent care, hospital, or [facility]...) When possible be specific @ -No Did you speak to anyone other than the patient for history (EMS, parent, family, police, friend...)? What history was obtained from this source @ -No Did you review nursing and triage notes (agree or disagree)? Why? @ -I reviewed and agree with nursing and triage notes Were old charts reviewed (outside hosp., previous admission, EMS record, old EKG, old radiological studies, urgent care reports/EKG's, [facility] records)? Report findings @ -No old charts were reviewed Differential Diagnosis (chest pain, altered mental status, abdominal pain women, abdominal pain men, vaginal bleeding, weakness, fever, dyspnea, syncope, headache, dizziness, GI bleed, back pain, seizure, CVA, palpatations, mental health, musculoskeletal)? @ -Differential includes adverse reaction, viral illness, this is not an all inclusive list EKG interpreted by me (3pts min.). @ -As above X-rays interpreted by me (1pt min.). @ -None done CT interpreted by me (1pt min.). @ -None done U/S interpreted by me (1pt. min.). @ -None done What testing was considered but not performed or refused? (CT, X-rays, U/S, labs)? Why? @ -None What meds were considered but not given or refused? Why? @ -None Did you discuss the management of the patient with other professionals (professionals i.e. , PA, [employer], lab, RT, psych nurse, professor of social work, agricultural research director, teacher, chairman & chief executive officer, case technician)? Give summary @ -No Was smoking cessation discussed for >3mins.? @ -No Was critical care preformed (if so, how long)? @ -No Were there social determinants of health that impacted care today? How? (Homelessness, low income, unemployed, alcoholism, drug addiction, transportation, low edu. Level, literacy, decrease access to med. care, assisted, rehab)? @ -No Was there de-escalation of care discussed even if they declined (Discuss DNR or withdrawal of care, Hospice)? DNR status @ -No What co-morbidities impacted this encounter? (DM, HTN, Smoking, COPD, CAD, Cancer, CVA, ARF, Chemo, Hep., AIDS, mental health diagnosis, sleep apnea, morbid obesity)? @ -None Was patient admitted / discharged? Hospital course, mention meds given and route, prescriptions, significant lab abnormalities, going to OR and other pertinent info. @ -See above Undiagnosed new problem with uncertain prognosis? @ -No Drug Therapy requiring intensive monitoring for toxicity (Heparin, Nitro, Insulin, Cardizem)? @ -No Were any procedures done? @ -No Diagnosis/symptom? @ -Adverse drug reaction Acute, or Chronic, or Acute on Chronic? @ -Acute Uncomplicated (without systemic symptoms) or Complicated (systemic symptoms)? @ -Uncomplicated Side effects of treatment? @ -No Exacerbation, Progression, or Severe Exacerbation? @ -No Poses a threat to life or bodily function? How? (Chest pain, USA, IA, pneumonia, PE, COPD, DKA, ARF, appy, cholecystitis, CVA, Diverticulitis, Homicidal, Suicidal, threat to staff... and all critical care pts) @ -No Diagnosis/symptom? @ Hematuria Acute, or Chronic, or Acute on Chronic? @ Acute Uncomplicated (without systemic symptoms) or Complicated (systemic symptoms)? @ Uncomplicated Side effects of treatment? @ none Exacerbation, Progression, or Severe Exacerbation] @ no Poses a threat to life or bodily function? @ no (Chirag Donato) - Lab Data Lab Results 08/03/22 08/03/22 08/03/22 Range/Units 16:18 16:18 16:18 WBC 8.7 (3.8-10.6) k/uL RBC 5.09 (4.30-5.90) m/uL Hgb 15.8 (13.0-17.5) gm/dL Hct 47.3 (39.0-53.0) % MCV 92.9 (80.0-100.0) fL MCH 31.0 (25.0-35.0) pg MCHC 33.3 (31.0-37.0) g/dL RDW 12.8 (11.5-15.5) % Plt Count 187 (150-450) k/uL MPV 8.9 Neutrophils % 58 % Lymphocytes % 32 % Monocytes % 5 % Eosinophils % 3 % Basophils % 0 % Neutrophils # 5.0 (1.3-7.7) k/uL Lymphocytes # 2.7 (1.0-4.8) k/uL Monocytes # 0.4 (0-1.0) k/uL Eosinophils # 0.3 (0-0.7) k/uL Basophils # 0.0 (0-0.2) k/uL Sodium 141 (137-145) mmol/L Potassium 4.7 (3.5-5.1) mmol/L Chloride 103 (98-107) mmol/L Carbon Dioxide 26 (22-30) mmol/L Anion Gap 12 mmol/L BUN 22 H (9-20) mg/dL Creatinine 1.15 (0.66-1.25) mg/dL Est GFR (CKD-EPI)AfAm 79 (>60 ml/min/1.73 sqM) Est GFR (CKD-EPI)NonAf 68 (>60 ml/min/1.73 sqM) Glucose 95 (74-99) mg/dL Calcium 9.5 (8.4-10.2) mg/dL Total Bilirubin 1.4 H (0.2-1.3) mg/dL AST 27 (17-59) U/L ALT 43 (4-49) U/L Alkaline Phosphatase 88 (38-126) U/L Total Protein 7.2 (6.3-8.2) g/dL Albumin 4.3 (3.5-5.0) g/dL Urine Color Yellow Urine Appearance Clear (Clear) Urine pH 6.0 (5.0-8.0) Ur Specific [place] 1.025 (1.001-1.035) Urine Protein Negative (Negative) Urine Glucose (UA) Negative (Negative) Urine Ketones Negative (Negative) Urine Blood Moderate H (Negative) Urine Nitrite Negative (Negative) Urine Bilirubin Negative (Negative) Urine Urobilinogen <2.0 (<2.0) mg/dL Ur Leukocyte Esterase Negative (Negative) Urine RBC 161 H (0-5) /hpf Urine WBC 1 (0-5) /hpf Urine Mucus Rare H (None) /hpf Disposition <Gena Moss - Last Filed: 08/03/22 15:38> Is patient prescribed a controlled substance at d/c from ED?: No Time of Disposition: 16:57 <Chirag Donato - Last Filed: 08/04/22 00:27> Clinical Impression: UTI (urinary tract infection), Hematuria Disposition: HOME SELF-CARE Condition: Good Instructions (If sedation given, give patient instructions): Urinary Tract Infection in Men (ED), Hematuria (ED) Additional Instructions: Follow-up with PCP and urologist. Report back to ER with any new or worsening symptoms. Discontinue Bactrim and take new medication as prescribed. Prescriptions: Cephalexin [Keflex] 500 mg PO Q6HR 7 Days #28 cap Referrals: Teo Abreu MD [STAFF PHYSICIAN] - 1-2 days
[2022-08-03 15:52] VITALS: RESP 16
[2022-08-03 16:49] LABS: Basophils % (A) 0 %; Eosinophils # (A) 0.3 k/uL (0-0.7); Eosinophils % (A) 3 %; HCT 47.3 % (39.0-53.0); HGB 15.8 gm/dL (13.0-17.5); Lymphocytes # (A) 2.7 k/uL (1.0-4.8); Lymphocytes % (A) 32 %; MCHC 33.3 g/dL (31.0-37.0); MCV 92.9 fL (80.0-100.0); Mean Platelet Volume 8.9; Monocytes # (A) 0.4 k/uL (0-1.0); Monocytes % (A) 5 %; Neutrophils % (A) 58 %; Platelet Count 187 k/uL (150-450); RBC 5.09 m/uL (4.30-5.90); RDW 12.8 % (11.5-15.5); WBC 8.7 k/uL (3.8-10.6)
[2022-08-03 16:56] LABS: Albumin 4.3 g/dL (3.5-5.0); Calcium 9.5 mg/dL (8.4-10.2); Potassium 4.7 mmol/L (3.5-5.1); Total Bilirubin 1.4 mg/dL (0.2-1.3); Total Protein 7.2 g/dL (6.3-8.2)
[2022-08-03 17:19] LABS: Appearance,Urine Clear (Clear); Bilirubin,Urine Negative (Negative); Blood,Urine Moderate (Negative); Color,Urine Yellow; Glucose,Urine (UA) Negative (Negative); Ketones,Urine Negative (Negative); Leukocyte Esterase,Urine Negative (Negative); Mucus,Urine Rare /hpf; Nitrite,Urine Negative (Negative); Protein,Urine Negative (Negative); RBC,Urine 161 /hpf (0-5); Specific Gravity,Urine 1.025 (1.001-1.035); Urobilinogen,Urine <2.0 mg/dL (<2.0); WBC,Urine 1 /hpf (0-5)
[2022-08-03 17:57] VITALS: BP 123/79; PULSE 60; TEMP 98.1
== END 2022-08-03 17:57 | disposition home or self-care (01) ==
LOC: EC 15:34
DX: R31.9 Hematuria, unspecified (principal); N39.0 Urinary tract infection, site not specified; K21.9 Gastro-esophageal reflux disease without esophagitis; E78.5 Hyperlipidemia, unspecified; F32.A Depression, unspecified; Z87.891 Personal history of nicotine dependence; Z79.82 Long term (current) use of aspirin; Z79.899 Other long term (current) drug therapy
CPT/HCPCS: 36415; 80053; 81001; 85025; 99283

== ENCOUNTER 2022-08-04 12:17 | Observation (INO) | payer MEDICARE ==
[2022-08-04] MEDS ORDERED: SODIUM CHLORIDE 0.9% 1,000 ML IV ONE (12:46)
[2022-08-04] MEDS ORDERED: ONDANSETRON 4 MG/2 ML VIAL IVP STA (12:48)
[2022-08-04] MEDS ORDERED: DILTIAZEM DRIP BOLUS FROM BAG 1 MG SOLN IV ONE (12:48)
[2022-08-04 13:00] LABS: Basophils % (A) 0 %; Eosinophils # (A) 0.2 k/uL (0-0.7); Eosinophils % (A) 1 %; HCT 49.5 % (39.0-53.0); Lymphocytes % (A) 7 %; MCH 31.7 pg (25.0-35.0); MCHC 34.4 g/dL (31.0-37.0); MCV 92.2 fL (80.0-100.0); Monocytes # (A) 0.4 k/uL (0-1.0); Monocytes % (A) 2 %; Neutrophils # (A) 13.3 k/uL (1.3-7.7); Neutrophils % (A) 89 %; Platelet Count 186 k/uL (150-450); RBC 5.36 m/uL (4.30-5.90); RDW 12.8 % (11.5-15.5)
[2022-08-04 13:16] LABS: ALT 46 U/L (4-49); AST 35 U/L (17-59); African American GFR (CKD) 82 (>60 ml/min/1.73 sqM); Albumin 4.7 g/dL (3.5-5.0); Alkaline Phosphatase 119 U/L (38-126); Anion Gap 15 mmol/L; Blood Urea Nitrogen 22 mg/dL (9-20); Calcium 9.9 mg/dL (8.4-10.2); Carbon Dioxide 19 mmol/L (22-30); Chloride 108 mmol/L (98-107); Glucose 121 mg/dL (74-99); INR 1.1 (<1.2); Non-African American GFR(CKD) 71 (>60 ml/min/1.73 sqM); Partial Thromboplastin Time 23.5 sec (22.0-30.0); Potassium 4.2 mmol/L (3.5-5.1); Prothrombin Time 11.1 sec (9.0-12.0); Sodium 142 mmol/L (137-145); Total Bilirubin 2.6 mg/dL (0.2-1.3); Total Protein 7.8 g/dL (6.3-8.2)
[2022-08-04] MEDS: DILTIAZEM 125 MG in SODIUM CHLORIDE 0.9% 100 ML IV SCH (13:22)
--- NOTE | 2022-08-04 13:57 | XR ---
EXAMINATION TYPE: XR chest 2V DATE OF EXAM: 08/04/2022 1:47 PM COMPARISON: Chest radiographs from 07/31/2022 TECHNIQUE: XR chest 2V Frontal and lateral views of the chest. CLINICAL INDICATION:Male, 61 years old with history of dysrhythmia; FINDINGS: Lungs/Pleura: There is no evidence of pleural effusion, focal consolidation, or pneumothorax. Pulmonary vascularity: Unremarkable. Heart/mediastinum: Cardiomediastinal silhouette is prominent in size. Musculoskeletal: No acute osseous pathology. Mild degenerative changes of the thoracic spine. Partial ly visualized cervical fusion hardware. Other: Surgical clips in the upper abdomen. IMPRESSION: No acute cardiopulmonary disease/process.
[2022-08-04] MEDS ORDERED: cefTRIAXone IN SWFI 1,000 MG/10 ML SYRINGE IVP STA (14:49)
--- NOTE | 2022-08-04 14:49 | ED ---
General Adult HPI - General Chief complaint: Chest Pain Stated complaint: chest pain Time Seen by Provider: 08/04/22 12:20 Source: patient, EMS Mode of arrival: EMS Limitations: no limitations - History of Present Illness Initial comments: [id number] male with past medical history of A. fib who presents to the emergency department reporting chest pain and palpitations. Patient has been seen multiple times in the emergency department for similar complaints. He does have A. fib and is on Toprol and Eliquis. States that he has been having some hematuria. On the he was placed on Bactrim for UTI. States he began taking his medication which made him extremely nauseated. He was seen in the emergency department yesterday for the medication side effect and was switched to Keflex. States he was unable to pear picker his prescription. Due to his nausea he has not been taking his medications for A. fib. This morning the patient began having a rapid heart rate and therefore called EMS. He denies fevers or chills. States the hematuria has improved somewhat since he has been on antibiotics. No vomiting. No other alleviating, precipitating or modifying factors - Related Data Home Medications Medication Instructions Recorded Confirmed Aspirin 81 mg PO DAILY 04/25/18 08/04/22 lamoTRIgine [LaMICtal] 200 mg PO HS 04/25/18 08/04/22 Multivitamins, Thera [Multivitamin 1 tab PO DAILY 12/13/20 08/04/22 (formulary)] Omeprazole 40 mg PO HS 07/10/22 08/04/22 buPROPion HCL [Wellbutrin SR] 200 mg PO DAILY 07/13/22 08/04/22 Amiodarone [Cordarone] 200 mg PO DAILY 07/31/22 08/04/22 Metoprolol Tartrate [Lopressor] 50 mg PO BID 07/31/22 08/04/22 Cephalexin [Keflex] 500 mg PO Q6H 08/04/22 08/04/22 Previous Rx's Medication Instructions Recorded Apixaban [Eliquis] 5 mg PO BID #60 tab 07/15/22 Atorvastatin [Lipitor] 20 mg PO HS #30 tab 07/15/22 cloNIDine HCL 0.1 mg PO HS #30 tablet 08/01/22 Allergies Allergy/AdvReac Type Severity Reaction Status Date / Time No Known Allergies Allergy Verified 08/04/22 15:50 Review of Systems ROS Statement: Those systems with pertinent positive or pertinent negative responses have been documented in the HPI. ROS Other: All systems not noted in ROS Statement are negative. Past Medical History Past Medical History: Atrial Flutter, GERD/Reflux, Hyperlipidemia, Sleep A pnea/CPAP/BIPAP Additional Past Medical History / Comment(s): SLEEP APNEA-NO MACHINE, hiatal hernia History of Any Multi-Drug Resistant Organisms: None Reported Past Surgical History: Cholecystectomy, Orthopedic Surgery Additional Past Surgical History / Comment(s): CERVICAL FUSION, "WRAP " FOR GERD (DEIDRE). RIGHT KNEE ARTHROSCOPY. Past Anesthesia/Blood Transfusion Reactions: No Reported Reaction Past Psychological History: Depression Smoking Status: Former smoker Past Alcohol Use History: None Reported Past Drug Use History: None Reported - Past Family History Mother Family Medical History: Cancer Father Family Medical History: Cancer General Exam Limitations: no limitations Course Vital Signs 08/04/22 08/04/22 08/04/22 12:19 13:00 13:24 Temperature 97.0 F L Pulse Rate 128 H 101 H 105 H Respiratory 18 16 18 Rate Blood Pressure 119/97 109/82 124/80 O2 Sat by Pulse 99 98 100 Oximetry 08/04/22 08/04/22 08/04/22 14:11 15:34 16:28 Temperature Pulse Rate 92 108 H 95 Respiratory 16 18 18 Rate Blood Pressure 120/85 121/89 120/77 O2 Sat by Pulse 100 99 100 Oximetry EKG Findings - EKG Comments: EKG Findings:: EKG demonstrates a flutter with a rate of 104. QRS 109. QTC 467. No acute ST segment elevations or depressions Medical Decision Making - Medical Decision Making Was pt. sent in by a medical professional or institution (, PA, CLINICAL QUALITY RN, urgent care, hospital, or residential...) When possible be specific @ -[No] Did you speak to anyone other than the patient for history (EMS, parent, family, police, friend...)? What history was obtained from this source @ -[No] Did you review nursing and triage notes (agree or disagree)? Why? @ -[I reviewed and agree with nursing and triage notes] Were old charts reviewed (outside hosp., previous admission, EMS record, old EKG, old radiological studies, urgent care reports/EKG's, residential records)? Report findings @ -[No old charts were reviewed] Differential Diagnosis (chest pain, altered mental status, abdominal pain women, abdominal pain men, vaginal bleeding, weakness, fever, dyspnea, syncope, headache, dizziness, GI bleed, back pain, seizure, CVA, palpatations, mental health, musculoskeletal)? @ -[not applicable] EKG interpreted by me (3pts min.). @ -[As above] X-rays interpreted by me (1pt min.). @ -[None done] CT interpreted by me (1pt min.). @ -[None done] U/S interpreted by me (1pt. min.). @ -[None done] What testing was considered but not performed or refused? (CT, X-rays, U/S, labs)? Why? @ -[None] What meds were considered but not given or refused? Why? @ -[None] Did you discuss the management of the patient with other professionals (professionals i.e. , PA, CLINICAL QUALITY RN, lab, RT, psych nurse, social work coordinator, wardrobe coordinator, teacher, chief credit officer, rehabilitation case coordinator)? Give summary @ -[No] Was smoking cessation discussed for >3mins.? @ -[No] Was critical care preformed (if so, how long)? @ -[No] Were there social determinants of health that impacted care today? How? (Homelessness, low income, unemployed, alcoholism, drug addiction, transportation, low edu. Level, literacy, decrease access to med. care, long term, rehab)? @ -[No] Was there de-escalation of care discussed even if they declined (Discuss DNR or withdrawal of care, Hospice)? DNR status @ -[No] What co-morbidities impacted this encounter? (DM, HTN, Smoking, COPD, CAD, Cancer, CVA, ARF, Chemo, Hep., AIDS, mental health diagnosis, sleep apnea, morbid obesity)? @ -[None] Was patient admitted / discharged? Hospital course, mention meds given and route, prescriptions, significant lab abnormalities, going to OR and other pertinent info. @ -Upon arrival the patient was placed into room 25. A thorough history and physical exam was performed. Patient placed on continuous pulse ox and cardiac monitoring. Does have an elevated heart rate which goes from 1:15 to 140. IV is established and laboratory studies are conducted. He is started on a Cardizem drip. Laboratory studies demonstrate a leukocytosis of 15. Blood cultures obtained and the patient is given a dose of Rocephin as he is not tolerating the oral antibiotics in the outpatient setting. He is also given 4 mg of Zofran. Patient is scheduled to have a cardioversion next week. Recommended admission for cardiology consultation. Spoke with Dr. Dsouza from [facility] who agreed to admit the patient. Undiagnosed new problem with uncertain prognosis? @ -[No] Drug Therapy requiring intensive monitoring for toxicity (Heparin, Nitro, Insulin, Cardizem)? @ -[No] Were any procedures done? @ -[No] Diagnosis/symptom? @ -[default] Acute, or Chronic, or Acute on Chronic? @ -[default] Uncomplicated (without systemic symptoms) or Complicated (systemic symptoms)? @ -[default] Side effects of treatment? @ -[No] Exacerbation, Progression, or Severe Exacerbation? @ -[No] Poses a threat to life or bodily function? How? (Chest pain, USA, IA, pneumonia, PE, COPD, DKA, ARF, appy, cholecystitis, CVA, Diverticulitis, Homicidal, Suicidal, threat to staff... and all critical care pts) @ -[No] - Lab Data Result diagrams: 08/04/22 12:52 08/04/22 12:52 Lab Results 08/04/22 08/04/22 08/04/22 Range/Units 12:46 12:52 12:52 WBC 15.0 H (3.8-10.6) k/uL RBC 5.36 (4.30-5.90) m/uL Hgb 17.0 (13.0-17.5) gm/dL Hct 49.5 (39.0-53.0) % MCV 92.2 (80.0-100.0) fL MCH 31.7 (25.0-35.0) pg MCHC 34.4 (31.0-37.0) g/dL RDW 12.8 (11.5-15.5) % Plt Count 186 (150-450) k/uL MPV 9.0 Neutrophils % 89 % Lymphocytes % 7 % Monocytes % 2 % Eosinophils % 1 % Basophils % 0 % Neutrophils # 13.3 H (1.3-7.7) k/uL Lymphocytes # 1.0 (1.0-4.8) k/uL Monocytes # 0.4 (0-1.0) k/uL Eosinophils # 0.2 (0-0.7) k/uL Basophils # 0.0 (0-0.2) k/uL PT 11.1 (9.0-12.0) sec INR 1.1 (<1.2) APTT 23.5 (22.0-30.0) sec Sodium (137-145) mmol/L Potassium (3.5-5.1) mmol/L Chloride (98-107) mmol/L Carbon Dioxide (22-30) mmol/L Anion Gap mmol/L BUN (9-20) mg/dL Creatinine (0.66-1.25) mg/dL Est GFR (CKD-EPI)AfAm (>60 ml/min/1.73 sqM) Est GFR (CKD-EPI)NonAf (>60 ml/min/1.73 sqM) Glucose (74-99) mg/dL Calcium (8.4-10.2) mg/dL Magnesium (1.6-2.3) mg/dL Total Bilirubin (0.2-1.3) mg/dL AST (17-59) U/L ALT (4-49) U/L Alkaline Phosphatase (38-126) U/L Troponin I (0.000-0.034) ng/mL Total Protein (6.3-8.2) g/dL Albumin (3.5-5.0) g/dL TSH (0.465-4.680) mIU/L Urine Color Yellow Urine Appearance Clear (Clear) Urine pH 5.5 (5.0-8.0) Ur Specific [place] 1.028 (1.001-1.035) Urine Protein Trace H (Negative) Urine Glucose (UA) Negative (Negative) Urine Ketones Negative (Negative) Urine Blood Negative (Negative) Urine Nitrite Negative (Negative) Urine Bilirubin Negative (Negative) Urine Urobilinogen <2.0 (<2.0) mg/dL Ur Leukocyte Esterase Negative (Negative) 08/04/22 08/04/22 Range/Units 12:52 12:52 WBC (3.8-10.6) k/uL RBC (4.30-5.90) m/uL Hgb (13.0-17.5) gm/dL Hct (39.0-53.0) % MCV (80.0-100.0) fL MCH (25.0-35.0) pg MCHC (31.0-37.0) g/dL RDW (11.5-15.5) % Plt Count (150-450) k/uL MPV Neutrophils % % Lymphocytes % % Monocytes % % Eosinophils % % Basophils % % Neutrophils # (1.3-7.7) k/uL Lymphocytes # (1.0-4.8) k/uL Monocytes # (0-1.0) k/uL Eosinophils # (0-0.7) k/uL Basophils # (0-0.2) k/uL PT (9.0-12.0) sec INR (<1.2) APTT (22.0-30.0) sec Sodium 142 (137-145) mmol/L Potassium 4.2 (3.5-5.1) mmol/L Chloride 108 H (98-107) mmol/L Carbon Dioxide 19 L (22-30) mmol/L Anion Gap 15 mmol/L BUN 22 H (9-20) mg/dL Creatinine 1.11 (0.66-1.25) mg/dL Est GFR (CKD-EPI)AfAm 82 (>60 ml/min/1.73 sqM) Est GFR (CKD-EPI)NonAf 71 (>60 ml/min/1.73 sqM) Glucose 121 H (74-99) mg/dL Calcium 9.9 (8.4-10.2) mg/dL Magnesium 2.0 (1.6-2.3) mg/dL Total Bilirubin 2.6 H (0.2-1.3) mg/dL AST 35 (17-59) U/L ALT 46 (4-49) U/L Alkaline Phosphatase 119 (38-126) U/L Troponin I <0.012 (0.000-0.034) ng/mL Total Protein 7.8 (6.3-8.2) g/dL Albumin 4.7 (3.5-5.0) g/dL TSH 2.700 (0.465-4.680) mIU/L Urine Color Urine Appearance (Clear) Urine pH (5.0-8.0) Ur Specific [place] (1.001-1.035) Urine Protein (Negative) Urine Glucose (UA) (Negative) Urine Ketones (Negative) Urine Blood (Negative) Urine Nitrite (Negative) Urine Bilirubin (Negative) Urine Urobilinogen (<2.0) mg/dL Ur Leukocyte Esterase (Negative) Disposition Clinical Impression: UTI (urinary tract infection), Atrial flutter, Chest pain, Hematuria Disposition: ADMITTED IP TO THIS HOSP Condition: Stable Is patient prescribed a controlled substance at d/c from ED?: No Time of Disposition: 14:51 Decision to Admit Reason: Admit from EC Decision Date: 08/04/22 Decision Time: 14:51
[2022-08-04] MEDS ORDERED: ACETAMINOPHEN TAB 325 MG TAB PO PRN (14:51)
[2022-08-04] MEDS ORDERED: NALOXONE 0.4 MG/ML 1 ML VIAL IV PRN (14:51)
[2022-08-04] MEDS: SODIUM CHLORIDE 0.9% 1,000 ML IV SCH (16:28)
[2022-08-04 16:31] LABS: Appearance,Urine Clear (Clear); Bilirubin,Urine Negative (Negative); Blood,Urine Negative (Negative); Color,Urine Yellow; Glucose,Urine (UA) Negative (Negative); Ketones,Urine Negative (Negative); Leukocyte Esterase,Urine Negative (Negative); Nitrite,Urine Negative (Negative); PH, Urine 5.5 (5.0-8.0); Protein,Urine Trace (Negative); Specific Gravity,Urine 1.028 (1.001-1.035); Urobilinogen,Urine <2.0 mg/dL (<2.0)
[2022-08-04] MEDS: METOPROLOL TARTRATE 50 MG TAB PO SCH ×2 (18:00→19:56)
[2022-08-04] MEDS: ASPIRIN 81 MG PO SCH (18:00)
[2022-08-04] MEDS: AMIODARONE 200 MG TAB PO SCH (18:00)
[2022-08-04] MEDS: buPROPion SR 100 MG TABLET.ER PO SCH (18:06)
[2022-08-04] MEDS: cloNIDine HCL 0.1 MG TAB PO SCH (19:56)
[2022-08-04] MEDS: APIXABAN 5 MG TAB PO SCH (19:56)
[2022-08-04] MEDS: lamoTRIgine 100 MG TAB PO SCH (19:56)
[2022-08-04] MEDS: ATORVASTATIN 20 MG TAB PO SCH (19:56)
[2022-08-04] MEDS ORDERED: PANTOPRAZOLE 40 MG TABLET PO SCH (21:00)
[2022-08-05] MEDS: SODIUM CHLORIDE 0.9% 1,000 ML IV SCH ×2 (06:08→20:31)
[2022-08-05 08:54] LABS: Basophils % (A) 0 %; Eosinophils # (A) 0.1 k/uL (0-0.7); Eosinophils % (A) 1 %; HCT 47.4 % (39.0-53.0); HGB 15.5 gm/dL (13.0-17.5); Lymphocytes # (A) 1.5 k/uL (1.0-4.8); Lymphocytes % (A) 21 %; MCH 31.3 pg (25.0-35.0); MCHC 32.6 g/dL (31.0-37.0); MCV 95.9 fL (80.0-100.0); Mean Platelet Volume 8.7; Monocytes # (A) 0.2 k/uL (0-1.0); Monocytes % (A) 3 %; Neutrophils # (A) 5.1 k/uL (1.3-7.7); Neutrophils % (A) 72 %; Platelet Count 147 k/uL (150-450); RBC 4.94 m/uL (4.30-5.90); RDW 12.9 % (11.5-15.5)
[2022-08-05 09:03] LABS: African American GFR (CKD) >90 (>60 ml/min/1.73 sqM); Anion Gap 14 mmol/L; Blood Urea Nitrogen 18 mg/dL (9-20); Calcium 8.6 mg/dL (8.4-10.2); Carbon Dioxide 16 mmol/L (22-30); Chloride 112 mmol/L (98-107); Glucose 103 mg/dL (74-99); Non-African American GFR(CKD) 80 (>60 ml/min/1.73 sqM); Potassium 3.6 mmol/L (3.5-5.1); Sodium 142 mmol/L (137-145)
[2022-08-05] MEDS: ASPIRIN 81 MG PO SCH (09:10)
[2022-08-05] MEDS: ONDANSETRON 4 MG/2 ML VIAL IVP PRN ×2 (09:10→16:23)
[2022-08-05] MEDS: APIXABAN 5 MG TAB PO SCH ×2 (09:10→20:31)
[2022-08-05] MEDS: AMIODARONE 200 MG TAB PO SCH (09:10)
[2022-08-05] MEDS: MULTIVITAMINS, THERA 1 EACH TAB PO SCH (09:10)
[2022-08-05] MEDS: METOPROLOL TARTRATE 50 MG TAB PO SCH ×2 (09:10→20:31)
[2022-08-05] MEDS: buPROPion SR 100 MG TABLET.ER PO SCH (09:10)
--- NOTE | 2022-08-05 13:51 | P.CRDCN ---
History of Present Illness Consult date: 08/05/22 Consult reason: atrial flutter, atrial fibrillation History of present illness: The patient is a 61-year-old male who follows in the office with Dr. Deluca. He has a known history of atrial flutter and atrial fibrillation. Approximately 3 weeks ago he is started on amiodarone and was scheduled for outpatient cardioversion. He was subsequently admitted to the hospital last week for chest pain and palpitations. Lexiscan stress test showed no evidence of ischemia and was discharged for outpatient follow-up. Since being home he has developed severe nausea and some vomiting. He has been unable to take his cardiac medications and therefore presented to the emergency room. DIAGNOSTICS: EKG shows atrial fibrillation with heart rates in the low 100s Telemetry shows heart rates averaging in the 90s Chest x-ray shows no acute cardiopulmonary disease Lab data: WBC 7.0, hemoglobin 15.5, hematocrit 47.4, platelet 147, sodium 142, potassium 3.6, BUN 18, creatinine 1.0, AST 35, ALT 46, troponin less than 0.012, TSH 2.7 Vitals: Blood pressure 126/76, SpO2 95% on room air, pulse 97, respiratory rate 16, afebrile REVIEW OF SYSTEMS: No fever or chills. No cough or expectoration. No diaphoresis. Patient denies headache, dizziness, blurred vision, double vision. No hematochezia. No hematemesis. Denies any black stools or blood in his stools. Denies dysuria or hematuria. No muscle weakness or numbness. Positive for abdominal discomfort, nausea and vomiting. Denies chest pain or chest pressure. Denies orthopnea or difficulty breathing. PHYSICAL EXAMINATION: This is a 61-year-old male in no apparent distress at the time of my examination. HEENT: Head is atraumatic, normocephalic. Pupils are equal, round. Sclerae anicteric. Conjunctivae are clear. Mucous membranes of the mouth are moist. Neck is supple. There is no jugular venous distention. No carotid bruit is heard. CHEST EXAMINATION: Lungs are clear to auscultation. No chest wall tenderness is noted on palpation or with deep breathing. HEART EXAMINATION:Irregular rate and rhythm. S1, S2 heard. No murmurs, gallops or rub. ABDOMEN: Soft, tender to palpation. Bowel sounds are heard. No organomegaly noted. EXTREMITIES: 2+ peripheral pulses with no evidence of peripheral edema and no calf tenderness noted. NEUROLOGIC EXAMINATION: Patient is awake, alert and oriented x3. FINAL ASSESSMENT AND PLAN: Atrial fibrillation History of atrial flutter Urinary tract infection Abdominal discomfort with nausea Nonischemic cardiomyopathy PLAN: Discontinue amiodarone as this may be contributing to his GI upset Increase beta felicitas as needed for rate control Patient is scheduled to undergo outpatient cardioversion on Sunday with primary houseman Dr. William It is recommended that the patient undergo ablation for atrial fibrillation as he has arrhythmia induced cardiomyopathy Further recommendations be based upon clinical course I am dictating on behalf of Dr Redd Berman's history/physical and assessment/plan. Past Medical History Past Medical History: Atrial Flutter, GERD/Reflux, Hyperlipidemia, Sleep Apnea/CPAP/BIPAP Additional Past Medical History / Comment(s): SLEEP APNEA-NO MACHINE, hiatal hernia History of Any Multi-Drug Resistant Organisms: None Reported Past Surgical History: Cholecystectomy, Orthopedic Surgery Additional Past Surgical History / Comment(s): CERVICAL FUSION, "WRAP " FOR GERD (DEIDRE). RIGHT KNEE ARTHROSCOPY. Past Anesthesia/Blood Transfusion Reactions: No Reported Reaction Past Psychological History: Depression Smoking Status: Former smoker Past Alcohol Use History: None Reported Past Drug Use History: None Reported - Past Family History Mother Family Medical History: Cancer Father Family Medical History: Cancer Medications and Allergies Home Medications Medication Instructions Recorded Confirmed Type Aspirin 81 mg PO DAILY 04/25/18 08/04/22 History lamoTRIgine [LaMICtal] 200 mg PO HS 04/25/18 08/04/22 History Multivitamins, Thera [Multivitamin 1 tab PO DAILY 12/13/20 08/04/22 History (formulary)] Omeprazole 40 mg PO HS 07/10/22 08/04/22 History buPROPion HCL [Wellbutrin SR] 200 mg PO DAILY 07/13/22 08/04/22 History Apixaban [Eliquis] 5 mg PO BID #60 tab 07/15/22 08/04/22 Rx Atorvastatin [Lipitor] 20 mg PO HS #30 tab 07/15/22 08/04/22 Rx Amiodarone [Cordarone] 200 mg PO DAILY 07/31/22 08/04/22 History Metoprolol Tartrate [Lopressor] 50 mg PO BID 07/31/22 08/04/22 History cloNIDine HCL 0.1 mg PO HS #30 tablet 08/01/22 08/04/22 Rx Cephalexin [Keflex] 500 mg PO Q6H 08/04/22 08/04/22 History Allergies Allergy/AdvReac Type Severity Reaction Status Date / Time No Known Allergies Allergy Verified 08/04/22 15:50 Physical Exam Vitals: Vital Signs Temp Pulse Pulse Resp BP BP Pulse Ox 08/05/22 12:00 97.9 F 97 16 126/76 95 08/05/22 09:15 97.6 F 89 16 114/80 08/05/22 04:00 98.0 F 101 H 17 110/71 100 08/05/22 00:00 98.2 F 93 19 122/79 99 08/04/22 20:00 98.0 F 98 19 117/75 100 08/04/22 16:59 97.2 F L 102 H 16 115/69 96 08/04/22 16:28 95 18 120/77 100 08/04/22 15:34 108 H 18 121/89 99 08/04/22 14:11 92 16 120/85 100 Intake and Output 08/04/22 08/05/22 08/05/22 22:59 06:59 14:59 Intake Total 23.667 Balance 23.667 Intake: Intake, IV Titration 23.667 Amount Diltiazem 125 mg In 23.667 Sodium Chloride 0.9% 100 ml @ 5 MG/HR 5 mls/hr IV .Q24H [facility] Rx#:[id number] Other: Voiding Method Toilet Toilet Toilet # Voids 1 # Bowel Movements 2 Weight 92.533 kg Results 08/05/22 08:06 08/05/22 08:06 CBC 08/05/22 Range/Units 08:06 WBC 7.0 (3.8-10.6) k/uL RBC 4.94 (4.30-5.90) m/uL Hgb 15.5 (13.0-17.5) gm/dL Hct 47.4 (39.0-53.0) % Plt Count 147 L (150-450) k/uL Comprehensive Metabolic Panel 08/05/22 Range/Units 08:06 Sodium 142 (137-145) mmol/L Potassium 3.6 (3.5-5.1) mmol/L Chloride 112 H (98-107) mmol/L Carbon Dioxide 16 L (22-30) mmol/L BUN 18 (9-20) mg/dL Creatinine 1.00 (0.66-1.25) mg/dL Glucose 103 H (74-99) mg/dL Calcium 8.6 (8.4-10.2) mg/dL Current Medications Generic Name Dose Route Start Last Admin Trade Name Freq PRN Reason Stop Dose Admin Acetaminophen 650 mg 08/04/22 14:51 Acetaminophen Tab 325 Mg Tab PO Q6HR PRN Mild Pain or Fever > 100.5 Apixaban 5 mg 08/04/22 21:00 08/05/22 09:10 Apixaban 5 Mg Tab PO 5 mg BID CHRIS Administration Protocol Aspirin 81 mg 08/04/22 17:30 08/05/22 09:10 Aspirin 81 Mg PO 81 mg DAILY CHRIS Administration Atorvastatin Calcium 20 mg 08/04/22 21:00 08/04/22 19:56 Atorvastatin 20 Mg Tab PO 20 mg HS CHRIS Administration Bupropion HCl 200 mg 08/04/22 17:30 08/05/22 09:10 Bupropion Sr 100 Mg Tablet.Er PO 200 mg DAILY CHRIS Administration Clonidine 0.1 mg 08/04/22 21:00 08/04/22 19:56 Clonidine Hcl 0.1 Mg Tab PO 0.1 mg HS CHRIS Administration Diltiazem HCl 125 mg/ Sodium 125 mls @ 5 mls/hr 08/04/22 13:00 08/04/22 18:06 Chloride IV 0 mg/hr .Q24H CHRIS 0 mls/hr Infusion 5 MG/HR Sodium Chloride 1,000 mls @ 75 mls/hr 08/04/22 15:00 08/05/22 06:08 Saline 0.9% IV 75 mls/hr .[id number] CHRIS Administration Lamotrigine 200 mg 08/04/22 21:00 08/04/22 19:56 Lamotrigine 100 Mg Tab PO 200 mg HS CHRIS Administration Metoprolol Tartrate 50 mg 08/04/22 17:23 08/05/22 09:10 Metoprolol Tartrate 50 Mg Tab PO 50 mg BID CHRIS Administration Multivitamins 1 each 08/05/22 09:00 08/05/22 09:10 Multivitamins, Thera 1 Each Tab PO 1 each DAILY CHRIS Administration Naloxone HCl 0.2 mg 08/04/22 14:51 Naloxone 0.4 Mg/Ml 1 Ml Vial IV Q2M PRN Opioid Reversal Ondansetron HCl 4 mg 08/04/22 14:51 08/05/22 09:10 Ondansetron 4 Mg/2 Ml Vial IVP 4 mg Q8HR PRN Administration Nausea And Vomiting Pantoprazole Sodium 40 mg 08/04/22 21:00 08/04/22 19:56 Pantoprazole 40 Mg Tablet PO 40 mg HS CHRIS Administration Intake and Output 08/04/22 08/05/22 08/05/22 22:59 06:59 14:59 Intake Total 23.667 Balance 23.667 Intake: Intake, IV Titration 23.667 Amount Diltiazem 125 mg In 23.667 Sodium Chloride 0.9% 100 ml @ 5 MG/HR 5 mls/hr IV .Q24H [facility] Rx#:[id number] Other: Voiding Method Toilet Toilet Toilet # Voids 1 # Bowel Movements 2 Weight 92.533 kg 08/05/22 08:06 08/05/22 08:06
[2022-08-05] MEDS: DILTIAZEM 125 MG in SODIUM CHLORIDE 0.9% 100 ML IV SCH (14:07)
--- NOTE | 2022-08-05 15:35 | P.HPIM ---
History of Present Illness H&P Date: 08/04/22 Chief Complaint: Chest pain 61-year-old male with past medical history of A. fib who presents to the emergency department reporting chest pain and palpitations. Patient has been seen multiple times in the emergency department for similar complaints. He does have A. fib and is on Toprol and Eliquis. States that he has been having some hematuria. On the he was placed on Bactrim for UTI. States he began taking his medication which made him extremely nauseated. He was seen in the emergency department yesterday for the medication side effect and was switched to Keflex. States he was unable to berry picker his prescription. Due to his nausea he has not been taking his medications for A. fib. This morning the patient began having a rapid heart rate and therefore called EMS. He denies fevers or chills. States the hematuria has improved somewhat since he has been on antibiotics. No vomiting. No other alleviating, precipitating or modifying factors EKG shows atrial fibrillation with heart rates in the low 100s Telemetry shows heart rates averaging in the 90s Chest x-ray shows no acute cardiopulmonary disease Lab data: WBC 7.0, hemoglobin 15.5, hematocrit 47.4, platelet 147, sodium 142, potassium 3.6, BUN 18, creatinine 1.0, AST 35, ALT 46, troponin less than 0.012, TSH 2.7 Review of Systems REVIEW OF SYSTEMS: CONSTITUTIONAL: No fever, no malaise, no fatigue. HEENT: No recent visual problems or hearing problems. Denied any sore throat. CARDIOVASCULAR: No chest pain, orthopnea, PND, no palpitations, no syncope. PULMONARY: No shortness of breath, no cough, no hemoptysis. GASTROINTESTINAL: No diarrhea, no nausea, no vomiting, no abdominal pain. NEUROLOGICAL: No headaches, no weakness, no numbness. HEMATOLOGICAL: Denies any bleeding or petechiae. GENITOURINARY: Denies any burning micturition, frequency, or urgency. MUSCULOSKELETAL/RHEUMATOLOGICAL: Denies any joint pain, swelling, or any muscle pain. ENDOCRINE: Denies any polyuria or polydipsia. The rest of the 14-point review of systems is negative. Past Medical History Past Medical History: Atrial Flutter, GERD/Reflux, Hyperlipidemia, Sleep Apnea/CPAP/BIPAP Additional Past Medical History / Comment(s): SLEEP APNEA-NO MACHINE, hiatal hernia History of Any Multi-Drug Resistant Organisms: None Reported Past Surgical History: Cholecystectomy, Orthopedic Surgery Additional Past Surgical History / Comment(s): CERVICAL FUSION, "WRAP " FOR GERD (DEIDRE). RIGHT KNEE ARTHROSCOPY. Past Anesthesia/Blood Transfusion Reactions: No Reported Reaction Past Psychological History: Depression Smoking Status: Former smoker Past Alcohol Use History: None Reported Past Drug Use History: None Reported - Past Family History Mother Family Medical History: Cancer Father Family Medical History: Cancer Medications and Allergies Home Medications Medication Instructions Recorded Confirmed Type Aspirin 81 mg PO DAILY 04/25/18 08/04/22 History lamoTRIgine [LaMICtal] 200 mg PO HS 04/25/18 08/04/22 History Multivitamins, Thera [Multivitamin 1 tab PO DAILY 12/13/20 08/04/22 History (formulary)] Omeprazole 40 mg PO HS 07/10/22 08/04/22 History buPROPion HCL [Wellbutrin SR] 200 mg PO DAILY 07/13/22 08/04/22 History Apixaban [Eliquis] 5 mg PO BID #60 tab 07/15/22 08/04/22 Rx Atorvastatin [Lipitor] 20 mg PO HS #30 tab 07/15/22 08/04/22 Rx Amiodarone [Cordarone] 200 mg PO DAILY 07/31/22 08/04/22 History Metoprolol Tartrate [Lopressor] 50 mg PO BID 07/31/22 08/04/22 History cloNIDine HCL 0.1 mg PO HS #30 tablet 08/01/22 08/04/22 Rx Cephalexin [Keflex] 500 mg PO Q6H 08/04/22 08/04/22 History Allergies Allergy/AdvReac Type Severity Reaction Status Date / Time No Known Allergies Allergy Verified 08/04/22 15:50 Physical Exam Vitals: Vital Signs Temp Pulse Resp BP Pulse Ox 08/04/22 15:34 108 H 18 121/89 99 08/04/22 14:11 92 16 120/85 100 08/04/22 13:24 105 H 18 124/80 100 08/04/22 13:00 101 H 16 109/82 98 08/04/22 12:19 97.0 F L 128 H 18 119/97 99 Intake and Output 05/03/1708/04/22 08/04/22 06:59 14:59 22:59 Other: Weight 92.533 kg PHYSICAL EXAMINATION: GENERAL: The patient is alert and oriented x3, not in any acute distress. Well developed, well nourished. HEENT: Pupils are round and equally reacting to light. EOMI. No scleral icterus. No conjunctival pallor. Normocephalic, atraumatic. No pharyngeal erythema. No thyromegaly. CARDIOVASCULAR: S1 and S2 present. No murmurs, rubs, or gallops. PULMONARY: Chest is clear to auscultation, no wheezing or crackles. ABDOMEN: Soft, nontender, nondistended, normoactive bowel sounds. No palpable organomegaly. MUSCULOSKELETAL: No joint swelling or deformity. EXTREMITIES: No cyanosis, clubbing, or pedal edema. NEUROLOGICAL: Gross neurological examination did not reveal any focal deficits. SKIN: No rashes. Results CBC & Chem 7: 08/05/22 08:06 08/05/22 08:06 Labs: Abnormal Lab Results - Last 24 Hours (Table) 08/04/22 08/04/22 Range/Units 12:52 12:52 WBC 15.0 H (3.8-10.6) k/uL Neutrophils # 13.3 H (1.3-7.7) k/uL Chloride 108 H (98-107) mmol/L Carbon Dioxide 19 L (22-30) mmol/L BUN 22 H (9-20) mg/dL Glucose 121 H (74-99) mg/dL Total Bilirubin 2.6 H (0.2-1.3) mg/dL Assessment and Plan Assessment: 1. Atrial fibrillation with RVR - Patient was recommended amiodarone with plans for outpatient cardioversion; patient intolerant of amiodarone; cardiology recommending to discontinue and start patient on beta blockers and escalate treatment as needed to control heart rate - Patient remains on L Thomas 5 mg twice a day for anticoagulation - We will continue to monitor EKG and trend troponin - Patient had a recent stress test echocardiogram was done which is unremarkable Patient is scheduled to undergo outpatient cardioversion on Sunday with primary fourth officer Dr. William It is recommended that the patient undergo ablation for atrial fibrillation as he has arrhythmia induced cardiomyopathy 2. Hematuria/UTI - Patient has been placed on Rocephin 1 g IV daily; we will monitor blood cultures and urine culture; adjust accordingly 3. Intractable nausea/abdominal pain; likely related to amiodarone - Cardiology recommending to discontinue amiodarone which could be the reason for GI upset - We will start patient on Protonix 40 mg IV twice a day 4. Nonischemic cardiomyopathy; likely induced by arrhythmias; patient is recommended to proceed with ablation for atrial fibrillation - Continue with aspirin, statins and beta blockers 5. Hypertension; clonidine 0.1 mg daily at bedtime, metoprolol 50 g twice a day 6. Hyperlipidemia; Lipitor 20 g by mouth daily at bedtime DVT prophylaxis; SCDs/systemic anticoagulation CODE STATUS; full code
--- NOTE | 2022-08-05 15:36 | P.PN ---
Subjective Progress Note Date: 08/05/22 61-year-old male with past medical history of A. fib who presents to the emergency department reporting chest pain and palpitations. Patient has been seen multiple times in the emergency department for similar complaints. He does have A. fib and is on Toprol and Eliquis. States that he has been having some hematuria. On the he was placed on Bactrim for UTI. States he began taking his medication which made him extremely nauseated. He was seen in the emergency department yesterday for the medication side effect and was switched to Keflex. States he was unable to picker tender his prescription. Due to his nausea he has not been taking his medications for A. fib. This morning the patient began having a rapid heart rate and therefore called EMS. He denies fevers or chills. States the hematuria has improved somewhat since he has been on antibiotics. No vomiting. No other alleviating, precipitating or modifying factors EKG shows atrial fibrillation with heart rates in the low 100s Telemetry shows heart rates averaging in the 90s Chest x-ray shows no acute cardiopulmonary disease Lab data: WBC 7.0, hemoglobin 15.5, hematocrit 47.4, platelet 147, sodium 142, potassium 3.6, BUN 18, creatinine 1.0, AST 35, ALT 46, troponin less than 0.012, TSH 2.7 Objective - Vital Signs Vital signs: Vital Signs Temp 97.6 F 08/05/22 09:15 Pulse 89 08/05/22 09:15 Resp 16 08/05/22 09:15 BP 114/80 08/05/22 09:15 Pulse Ox 100 08/05/22 04:00 FiO2 Intake & Output 08/04/22 08/05/22 08/05/22 18:59 06:59 18:59 Intake Total 23.667 Balance 23.667 Weight 92.533 kg Intake: Intake, IV Titration 23.667 Amount Diltiazem 125 mg In 23.667 Sodium Chloride 0.9% 100 ml @ 5 MG/HR 5 mls/hr IV .Q24H [facility] Rx#:[id number] Other: Voiding Method Toilet Toilet # Voids 1 # Bowel Movements 2 - Exam GENERAL: The patient is alert and oriented x3, not in any acute distress. Well developed, well nourished. HEENT: Pupils are round and equally reacting to light. EOMI. No scleral icterus. No conjunctival pallor. Normocephalic, atraumatic. No pharyngeal erythema. No thyromegaly. CARDIOVASCULAR: S1 and S2 present. No murmurs, rubs, or gallops. PULMONARY: Chest is clear to auscultation, no wheezing or crackles. ABDOMEN: Soft, nontender, nondistended, normoactive bowel sounds. No palpable organomegaly. MUSCULOSKELETAL: No joint swelling or deformity. EXTREMITIES: No cyanosis, clubbing, or pedal edema. NEUROLOGICAL: Gross neurological examination did not reveal any focal deficits. - Labs CBC & Chem 7: 08/05/22 08:06 08/05/22 08:06 Labs: Abnormal Lab Results - Last 24 Hours (Table) 08/04/22 08/04/22 08/04/22 Range/Units 12:46 12:52 12:52 WBC 15.0 H (3.8-10.6) k/uL Plt Count (150-450) k/uL Neutrophils # 13.3 H (1.3-7.7) k/uL Chloride 108 H (98-107) mmol/L Carbon Dioxide 19 L (22-30) mmol/L BUN 22 H (9-20) mg/dL Glucose 121 H (74-99) mg/dL Total Bilirubin 2.6 H (0.2-1.3) mg/dL Urine Protein Trace H (Negative) 08/05/22 08/05/22 Range/Units 08:06 08:06 WBC (3.8-10.6) k/uL Plt Count 147 L (150-450) k/uL Neutrophils # (1.3-7.7) k/uL Chloride 112 H (98-107) mmol/L Carbon Dioxide 16 L (22-30) mmol/L BUN (9-20) mg/dL Glucose 103 H (74-99) mg/dL Total Bilirubin (0.2-1.3) mg/dL Urine Protein (Negative) Assessment and Plan Assessment: 1. Atrial fibrillation with RVR - Patient was recommended amiodarone with plans for outpatient cardioversion; patient intolerant of amiodarone; cardiology recommending to discontinue and start patient on beta blockers and escalate treatment as needed to control heart rate - Patient remains on L Thomas 5 mg twice a day for anticoagulation - We will continue to monitor EKG and trend troponin - Patient had a recent stress test echocardiogram was done which is unremarkable Patient is scheduled to undergo outpatient cardioversion on Sunday with primary digital media buyer Dr. William It is recommended that the patient undergo ablation for atrial fibrillation as he has arrhythmia induced cardiomyopathy 2. Hematuria/UTI - Patient has been placed on Rocephin 1 g IV daily; we will monitor blood cultures and urine culture; adjust accordingly 3. Intractable nausea/abdominal pain; likely related to amiodarone - Cardiology recommending to discontinue amiodarone which could be the reason for GI upset - We will start patient on Protonix 40 mg IV twice a day 4. Nonischemic cardiomyopathy; likely induced by arrhythmias; patient is recommended to proceed with ablation for atrial fibrillation - Continue with aspirin, statins and beta blockers 5. Hypertension; clonidine 0.1 mg daily at bedtime, metoprolol 50 g twice a day 6. Hyperlipidemia; Lipitor 20 g by mouth daily at bedtime DVT prophylaxis; SCDs/systemic anticoagulation CODE STATUS; full code
--- NOTE | 2022-08-05 20:15 | US ---
EXAMINATION TYPE: US abdomen complete DATE OF EXAM: 08/05/2022 COMPARISON: NONE CLINICAL INDICATION: Male, 61 years old with history of GI upset, ro gallbladder problems; Nausea TECHNIQUE: Multiple sonographic images of the abdomen are obtained. FINDINGS: EXAM MEASUREMENTS: Liver Length: 17.0 cm CBD: 0.5 cm Spleen: 11.9 cm Right Kidney: 12.0 x 5.2 x 4.7 cm Left Kidney: 11.7 x 5.1 x 4.9 cm STEAMBOAT CAPTAIN NOTES: Pancreas: Obscured by bowel gas Liver: Visualized portions appeared wnl Gallbladder: Surgically absent Evidence for sonographic Smith's sign: No CBD: wnl Spleen: wnl Right Kidney: Anechoic lesion medial/upper= 1.7 x 1.8 x 1.6 cm Left Kidney: Cortical thinning Upper IVC: wnl Abd Aorta: Proximal and mid portions ectatic, distal portion gassed out The liver is homogenous. The intrahepatic portion of the IVC and proximal abdominal aorta are within normal limits. There is no evidence of cholelithiasis. Common bile duct is unremarkable. The visu alized portions of the pancreas are homogenous. The spleen is unremarkable. Kidneys are symmetric a nd free of hydronephrosis. No solid renal lesions are seen. IMPRESSION: Simple cyst right kidney.
[2022-08-05] MEDS: ATORVASTATIN 20 MG TAB PO SCH (20:30)
[2022-08-05] MEDS: PANTOPRAZOLE 40 MG/10 ML VIAL IVP SCH (20:30)
[2022-08-05] MEDS: cloNIDine HCL 0.1 MG TAB PO SCH (20:31)
[2022-08-05] MEDS: lamoTRIgine 100 MG TAB PO SCH (20:31)
[2022-08-05] MEDS: METOCLOPRAMIDE 5 MG/ML 2 ML VIAL IVP PRN (20:35)
[2022-08-06] MEDS: SODIUM CHLORIDE 0.9% 1,000 ML IV SCH ×2 (06:20→19:56)
--- NOTE | 2022-08-06 07:39 | P.CRDCN ---
History of Present Illness History of present illness: 59-year-old male patient who typical atrial flutter awaiting electrical cardioversion Admitted with nausea vomiting Patient has been started on oral amiodarone for management of atrial flutter Recommend Continue and granulation Discontinue amiodarone Proceed with electrical cardioversion as clinically indicated Consider radio frequency ablation for treatment of atrial flutter, typical Past Medical History Past Medical History: Atrial Flutter, GERD/Reflux, Hyperlipidemia, Sleep Apnea/CPAP/BIPAP Additional Past Medical History / Comment(s): SLEEP APNEA-NO MACHINE, hiatal hernia History of Any Multi-Drug Resistant Organisms: None Reported Past Surgical History: Cholecystectomy, Orthopedic Surgery Additional Past Surgical History / Comment(s): CERVICAL FUSION, "WRAP " FOR GERD (DEIDRE). RIGHT KNEE ARTHROSCOPY. Past Anesthesia/Blood Transfusion Reactions: No Reported Reaction Past Psychological History: Depression Smoking Status: Former smoker Past Alcohol Use History: None Reported Past Drug Use History: None Reported - Past Family History Mother Family Medical History: Cancer Father Family Medical History: Cancer Medications and Allergies Home Medications Medication Instructions Recorded Confirmed Type RX: Aspirin 81 mg PO DAILY 04/25/18 08/04/22 History RX: lamoTRIgine [LaMICtal] 200 mg PO HS 04/25/18 08/04/22 History RX: Multivitamins, Thera 1 tab PO DAILY 12/13/20 08/04/22 History [Multivitamin (formulary)] RX: Omeprazole 40 mg PO HS 07/10/22 08/04/22 History RX: buPROPion HCL [Wellbutrin SR] 200 mg PO DAILY 07/13/22 08/04/22 History RX: Apixaban [Eliquis] 5 mg PO BID #60 tab 07/15/22 08/04/22 Rx RX: Atorvastatin [Lipitor] 20 mg PO HS #30 tab 07/15/22 08/04/22 Rx RX: Amiodarone [Cordarone] 200 mg PO DAILY 07/31/22 08/04/22 History RX: Metoprolol Tartrate [Lopressor] 50 mg PO BID 07/31/22 08/04/22 History RX: cloNIDine HCL 0.1 mg PO HS #30 tablet 08/01/22 08/04/22 Rx Cephalexin [Keflex] 500 mg PO Q6H 08/04/22 08/04/22 History Allergies Allergy/AdvReac Type Severity Reaction Status Date / Time No Known Allergies Allergy Verified 08/04/22 15:50 Physical Exam Vitals: Vital Signs Temp Pulse Resp BP Pulse Ox 08/06/22 04:00 98 F 80 19 107/76 98 08/05/22 23:25 97.9 F 100 20 119/79 97 08/05/22 20:00 98.0 F 89 18 123/85 98 08/05/22 15:35 97.9 F 94 17 128/93 100 08/05/22 12:00 97.9 F 97 16 126/76 95 08/05/22 09:15 97.6 F 89 16 114/80 Intake and Output 08/05/22 08/06/22 08/06/22 22:59 06:59 14:59 Other: Voiding Method Toilet Toilet # Voids 1 1 Results 08/05/22 08:06 08/05/22 08:06 CBC 08/05/22 Range/Units 08:06 WBC 7.0 (3.8-10.6) k/uL RBC 4.94 (4.30-5.90) m/uL Hgb 15.5 (13.0-17.5) gm/dL Hct 47.4 (39.0-53.0) % Plt Count 147 L (150-450) k/uL Comprehensive Metabolic Panel 08/05/22 Range/Units 08:06 Sodium 142 (137-145) mmol/L Potassium 3.6 (3.5-5.1) mmol/L Chloride 112 H (98-107) mmol/L Carbon Dioxide 16 L (22-30) mmol/L BUN 18 (9-20) mg/dL Creatinine 1.00 (0.66-1.25) mg/dL Glucose 103 H (74-99) mg/dL Calcium 8.6 (8.4-10.2) mg/dL Current Medications Generic Name Dose Route Start Last Admin Trade Name Freq PRN Reason Stop Dose Admin Acetaminophen 650 mg 08/04/22 14:51 Acetaminophen Tab 325 Mg Tab PO Q6HR PRN Mild Pain or Fever > 100.5 Apixaban 5 mg 08/04/22 21:00 08/05/22 20:31 Apixaban 5 Mg Tab PO 5 mg BID CHRIS Administration Protocol Aspirin 81 mg 08/04/22 17:30 08/05/22 09:10 Aspirin 81 Mg PO 81 mg DAILY CHRIS Administration Atorvastatin Calcium 20 mg 08/04/22 21:00 08/05/22 20:30 Atorvastatin 20 Mg Tab PO 20 mg HS CHRIS Administration Bupropion HCl 200 mg 08/04/22 17:30 08/05/22 09:10 Bupropion Sr 100 Mg Tablet.Er PO 200 mg DAILY CHRIS Administration Clonidine 0.1 mg 08/04/22 21:00 08/05/22 20:31 Clonidine Hcl 0.1 Mg Tab PO 0.1 mg HS CHRIS Administration Diltiazem HCl 125 mg/ Sodium 125 mls @ 5 mls/hr 08/04/22 13:00 08/05/22 14:07 Chloride IV Not Given .Q24H CHRIS 5 MG/HR Sodium Chloride 1,000 mls @ 75 mls/hr 08/04/22 15:00 08/06/22 06:20 Saline 0.9% IV 75 mls/hr .[id number] CHRIS Administration Lamotrigine 200 mg 08/04/22 21:00 08/05/22 20:31 Lamotrigine 100 Mg Tab PO 200 mg HS CHRIS Administration Metoclopramide HCl 10 mg 08/05/22 16:32 08/05/22 20:35 Metoclopramide 5 Mg/Ml 2 Ml Vial IVP 10 mg Q6HR PRN Administration GI Upset Metoprolol Tartrate 50 mg 08/04/22 17:23 08/05/22 20:31 Metoprolol Tartrate 50 Mg Tab PO 50 mg BID CHRIS Administration Multivitamins 1 each 08/05/22 09:00 08/05/22 09:10 Multivitamins, Thera 1 Each Tab PO 1 each DAILY CHRIS Administration Naloxone HCl 0.2 mg 08/04/22 14:51 Naloxone 0.4 Mg/Ml 1 Ml Vial IV Q2M PRN Opioid Reversal Ondansetron HCl 4 mg 08/04/22 14:51 08/05/22 16:23 Ondansetron 4 Mg/2 Ml Vial IVP 4 mg Q8HR PRN Administration Nausea And Vomiting Pantoprazole Sodium 40 mg 08/05/22 21:00 08/05/22 20:30 Pantoprazole 40 Mg/10 Ml Vial IVP 40 mg BID CHRIS Administration Intake and Output 08/05/22 08/06/2208/06/23 22:59 06:59 14:59 Other: Voiding Method Toilet Toilet # Voids 1 1 08/05/22 08:06 08/05/22 08:06
[2022-08-06] MEDS: ASPIRIN 81 MG PO SCH (09:22)
[2022-08-06] MEDS: APIXABAN 5 MG TAB PO SCH (09:22)
[2022-08-06] MEDS: METOPROLOL TARTRATE 50 MG TAB PO SCH ×2 (09:22→19:56)
[2022-08-06] MEDS: METOCLOPRAMIDE 5 MG/ML 2 ML VIAL IVP PRN (09:23)
[2022-08-06] MEDS: buPROPion SR 100 MG TABLET.ER PO SCH (09:23)
[2022-08-06] MEDS: MULTIVITAMINS, THERA 1 EACH TAB PO SCH (09:23)
[2022-08-06] MEDS: PANTOPRAZOLE 40 MG/10 ML VIAL IVP SCH ×2 (09:23→19:56)
[2022-08-06] MEDS: DILTIAZEM 125 MG in SODIUM CHLORIDE 0.9% 100 ML IV SCH (11:41)
--- NOTE | 2022-08-06 12:16 | P.GSCN ---
History of Present Illness Consult date: 08/06/22 Reason for Consult: Nausea, abdominal pain History of present illness: This is a 61-year-old male who has complaints of nausea and abdominal pain. Patient is currently being treated for H fibrillation. He was scheduled for outpatient EGD with me last month. However this was rescheduled. Patient has complaints of epigastric pain and some minimal GERD. Past Medical History Past Medical History: Atrial Flutter, GERD/Reflux, Hyperlipidemia, Sleep Apnea/CPAP/BIPAP Additional Past Medical History / Comment(s): SLEEP APNEA-NO MACHINE, hiatal hernia History of Any Multi-Drug Resistant Organisms: None Reported Past Surgical History: Cholecystectomy, Orthopedic Surgery Additional Past Surgical History / Comment(s): CERVICAL FUSION, "WRAP " FOR GERD (DEIDRE). RIGHT KNEE ARTHROSCOPY. Past Anesthesia/Blood Transfusion Reactions: No Reported Reaction Past Psychological History: Depression Smoking Status: Former smoker Past Alcohol Use History: None Reported Past Drug Use History: None Reported - Past Family History Mother Family Medical History: Cancer Father Family Medical History: Cancer Medications and Allergies Home Medications Medication Instructions Recorded Confirmed Type Aspirin 81 mg PO DAILY 04/25/18 08/04/22 History lamoTRIgine [LaMICtal] 200 mg PO HS 04/25/18 08/04/22 History Multivitamins, Thera [Multivitamin 1 tab PO DAILY 12/13/20 08/04/22 History (formulary)] Omeprazole 40 mg PO HS 07/10/22 08/04/22 History buPROPion HCL [Wellbutrin SR] 200 mg PO DAILY 07/13/22 08/04/22 History Apixaban [Eliquis] 5 mg PO BID #60 tab 07/15/22 08/04/22 Rx Atorvastatin [Lipitor] 20 mg PO HS #30 tab 07/15/22 08/04/22 Rx Amiodarone [Cordarone] 200 mg PO DAILY 07/31/22 08/04/22 History Metoprolol Tartrate [Lopressor] 50 mg PO BID 07/31/22 08/04/22 History cloNIDine HCL 0.1 mg PO HS #30 tablet 08/01/22 08/04/22 Rx Cephalexin [Keflex] 500 mg PO Q6H 08/04/22 08/04/22 History Allergies Allergy/AdvReac Type Severity Reaction Status Date / Time No Known Allergies Allergy Verified 08/04/22 15:50 Surgical - Exam Vital Signs Temp Pulse Resp BP Pulse Ox 97.0 F L 128 H 18 119/97 99 08/04/22 12:19 08/04/22 12:19 08/04/22 12:19 08/04/22 12:19 08/04/22 12:19 - General well developed, well nourished, no distress - Eyes PERRL - ENT normal pinna - Neck no masses - Respiratory normal expansion - Cardiovascular Rhythm: regular - Abdomen Abdomen: soft, non tender Results - Labs 08/05/22 08:06 08/05/22 08:06 Thyroid panel 08/05/22 Range/Units 08:06 TSH 1.500 (0.465-4.680) mIU/L Pituitary panel 08/05/22 Range/Units 08:06 TSH 1.500 (0.465-4.680) mIU/L Assessment and Plan Assessment: Patient will be scheduled for EGD when he is medically stable.
--- NOTE | 2022-08-06 13:11 | P.PN ---
Subjective Progress Note Date: 08/06/22 This is Goyo Chance NP, I'm dictating on behalf of Dr. Berman's H&P and A&P. Patient was interviewed and examined. Patient is a pleasant 61-year-old male who presented to the hospital with acute chest pain, A. fib with RVR, and nausea and vomiting. Patient reports that his stomach is still upset. We discontinued his amiodarone yesterday secondary to its known side effect of causing GI upset. This appears to not have changed the patient's symptoms. Beta felicitas was increased yesterday. His heart rate is controlled on current medications. We do recommend a cardioversion, however the acute issue at this time is the patient's upset stomach. General surgery should continue forward with their evaluation. We will see the patient as an outpatient for cardioversion with recommended A. fib ablation. GENERAL: Well-appearing, well-nourished and in no acute distress. NECK: Supple without JVD or thyromegaly. LUNGS: Breath sounds clear to auscultation bilaterally. Respiration equal and unlabored. No wheezes, rales or rhonchi. HEART: Regular rate and irregular rhythm without murmurs, rubs or gallops. S1 and S2 heard. EXTREMITIES: Normal range of motion, no edema. No clubbing or cyanosis. Peripheral pulses intact and strong. VITALS: Temp 97.8, pulse 90, respirations 16, blood pressure 132/88, O2 saturation 99% on room air TELEMETRY: Atrial fibrillation with controlled ventricular response LABS: Labs reviewed, no new labs since yesterday IMPRESSION: 1. Atrial fibrillation 2. History of atrial flutter 3. Urinary tract infection 4. Abdominal discomfort with nausea 5. Nonischemic cardiomyopathy PLAN: Surgery may hold anticoagulation for upcoming procedure. Will plan cardioversion for a later date post hospital stay. Post cardioversion, recommended A. fib ablation. No further recommendations from a cardiology standpoint. Objective - Vital Signs Vital signs: Vital Signs Temp 97.7 F 08/06/22 12:00 Pulse 68 08/06/22 12:00 Resp 16 08/06/22 12:00 BP 144/97 08/06/22 12:00 Pulse Ox 98 08/06/22 12:00 FiO2 21 08/06/22 08:16 Intake & Output 0508/06/22 08/06/22 18:59 06:59 18:59 Other: Voiding Method Toilet Toilet Toilet # Voids 1 1 # Bowel Movements 1 - Labs CBC & Chem 7: 08/05/22 08:06 08/05/22 08:06
[2022-08-06 15:27] LABS: Basophils % (A) 0 %; Eosinophils # (A) 0.1 k/uL (0-0.7); Eosinophils % (A) 2 %; HCT 43.2 % (39.0-53.0); HGB 14.6 gm/dL (13.0-17.5); Lymphocytes # (A) 2.4 k/uL (1.0-4.8); Lymphocytes % (A) 41 %; MCH 31.5 pg (25.0-35.0); MCHC 33.8 g/dL (31.0-37.0); MCV 93.2 fL (80.0-100.0); Monocytes # (A) 0.5 k/uL (0-1.0); Monocytes % (A) 8 %; Neutrophils # (A) 2.7 k/uL (1.3-7.7); Neutrophils % (A) 46 %; Platelet Count 142 k/uL (150-450); RBC 4.64 m/uL (4.30-5.90); WBC 5.9 k/uL (3.8-10.6)
[2022-08-06 16:00] LABS: African American GFR (CKD) >90 (>60 ml/min/1.73 sqM); Anion Gap 9 mmol/L; Blood Urea Nitrogen 11 mg/dL (9-20); Carbon Dioxide 19 mmol/L (22-30); Chloride 113 mmol/L (98-107); Glucose 91 mg/dL (74-99); Non-African American GFR(CKD) >90 (>60 ml/min/1.73 sqM); Sodium 141 mmol/L (137-145)
[2022-08-06 16:02] LABS: Potassium 3.5 mmol/L (3.5-5.1)
--- NOTE | 2022-08-06 16:33 | P.PN ---
Subjective Progress Note Date: 08/06/22 61-year-old male with past medical history of A. fib who presents to the emergency department reporting chest pain and palpitations. Patient has been seen multiple times in the emergency department for similar complaints. He does have A. fib and is on Toprol and Eliquis. States that he has been having some hematuria. On the he was placed on Bactrim for UTI. States he began taking his medication which made him extremely nauseated. He was seen in the emergency department yesterday for the medication side effect and was switched to Keflex. States he was unable to spanish moss picker his prescription. Due to his nausea he has not been taking his medications for A. fib. This morning the patient began having a rapid heart rate and therefore called EMS. He denies fevers or chills. States the hematuria has improved somewhat since he has been on antibiotics. No vomiting. No other alleviating, precipitating or modifying factors EKG shows atrial fibrillation with heart rates in the low 100s Telemetry shows heart rates averaging in the 90s Chest x-ray shows no acute cardiopulmonary disease Lab data: WBC 7.0, hemoglobin 15.5, hematocrit 47.4, platelet 147, sodium 142, potassium 3.6, BUN 18, creatinine 1.0, AST 35, ALT 46, troponin less than 0.012, TSH 2.7 08/06/2022 Patient is seen and evaluated in room at bedside; continue to report intractable and excessive nausea; continues poor oral intake --Patient is being followed by cardiology and amiodarone was discontinued due to GI complaints; beta felicitas was increased for improved heart rate control -- Cardiology is recommending cardioversion followed by ablation for atypical atrial flutter, once patient is stable -- Cardiology cleared to hold anticoagulation therapy for any upcoming procedure -- Patient has been evaluated by general surgery; endoscopy planned for further evaluation of GI complaints Objective - Vital Signs Vital signs: Vital Signs Temp 97.7 F 08/06/22 12:00 Pulse 68 08/06/22 12:00 Resp 16 08/06/22 12:00 BP 144/97 08/06/22 12:00 Pulse Ox 98 08/06/22 12:00 FiO2 21 08/06/22 08:16 Intake & Output 08/05/22 08/06/22 08/06/22 18:59 06:59 18:59 Other: Voiding Method Toilet Toilet Toilet # Voids 1 1 # Bowel Movements 1 - Exam GENERAL: The patient is alert and oriented x3, not in any acute distress. Well developed, well nourished. HEENT: Pupils are round and equally reacting to light. EOMI. No scleral icterus. No conjunctival pallor. Normocephalic, atraumatic. No pharyngeal erythema. No thyromegaly. CARDIOVASCULAR: S1 and S2 present. No murmurs, rubs, or gallops. PULMONARY: Chest is clear to auscultation, no wheezing or crackles. ABDOMEN: Soft, nontender, nondistended, normoactive bowel sounds. No palpable organomegaly. MUSCULOSKELETAL: No joint swelling or deformity. EXTREMITIES: No cyanosis, clubbing, or pedal edema. NEUROLOGICAL: Gross neurological examination did not reveal any focal deficits. - Labs CBC & Chem 7: 08/06/22 15:05 08/06/22 15:05 Assessment and Plan Assessment: 1. Atrial fibrillation with RVR - Patient was recommended amiodarone with plans for outpatient cardioversion; patient intolerant of amiodarone; cardiology recommending to discontinue and start patient on beta blockers and escalate treatment as needed to control heart rate - Patient remains on L Thomas 5 mg twice a day for anticoagulation - We will continue to monitor EKG and trend troponin - Patient had a recent stress test echocardiogram was done which is unremarkable Patient is scheduled to undergo outpatient cardioversion on Sunday with primary electrocardiographic technician Dr. William It is recommended that the patient undergo ablation for atrial fibrillation as he has arrhythmia induced cardiomyopathy 2. Hematuria/UTI - Patient has been placed on Rocephin 1 g IV daily; we will monitor blood cultures and urine culture; adjust accordingly 3. Intractable nausea/abdominal pain; likely related to amiodarone - Cardiology recommending to discontinue amiodarone which could be the reason for GI upset - We will start patient on Protonix 40 mg IV twice a day 4. Nonischemic cardiomyopathy; likely induced by arrhythmias; patient is recommended to proceed with ablation for atrial fibrillation - Continue with aspirin, statins and beta blockers 5. Hypertension; clonidine 0.1 mg daily at bedtime, metoprolol 50 g twice a day 6. Hyperlipidemia; Lipitor 20 g by mouth daily at bedtime DVT prophylaxis; SCDs/systemic anticoagulation CODE STATUS; full code
[2022-08-06] MEDS: lamoTRIgine 100 MG TAB PO SCH (19:55)
[2022-08-06] MEDS: cloNIDine HCL 0.1 MG TAB PO SCH (19:56)
[2022-08-06] MEDS: ATORVASTATIN 20 MG TAB PO SCH (19:56)
[2022-08-07] MEDS: PANTOPRAZOLE 40 MG/10 ML VIAL IVP SCH ×2 (09:33→20:21)
[2022-08-07] MEDS: ASPIRIN 81 MG PO SCH (09:34)
[2022-08-07] MEDS: METOPROLOL TARTRATE 50 MG TAB PO SCH ×2 (09:34→20:21)
[2022-08-07] MEDS: buPROPion SR 100 MG TABLET.ER PO SCH (09:34)
[2022-08-07] MEDS: MULTIVITAMINS, THERA 1 EACH TAB PO SCH (09:34)
[2022-08-07] MEDS ORDERED: PROPOFOL 10 MG/ML 20 ML VIAL IV ONE (15:53)
[2022-08-07] MEDS ORDERED: LACTATED RINGERS 1,000 ML IV ONE ×2 (15:56)
--- NOTE | 2022-08-07 16:02 | P.OP ---
Date of Procedure: 08/07/22 Preoperative Diagnosis: GERD Postoperative Diagnosis: antral gastritis Small sliding hiatal hernia Procedure(s) Performed: EGD Anesthesia: MAC Surgeon: Yariel Osorio Pathology: other (antrum) Condition: stable Disposition: PACU Description of Procedure: the patient's placed on the endoscopy table in the lateral position. He received IV sedation. The gastro-/oropharynx passed in the esophagus and stomach. Scope was then placed through the pylorus. The first and second portion duodenumAppeared Normal. Scope summer back the antrum this is minimally inflamed. A biopsies performed. Scope was then retroflexed and the remainder the stomach appeared normal. There was a small sliding hiatal hernia. The GE junction was at 38 cm per the distal esophagus appeared normal. The proximal esophagus appeared normal. Scope withdrawn for patient.
[2022-08-07] MEDS: DILTIAZEM 125 MG in SODIUM CHLORIDE 0.9% 100 ML IV SCH (16:09)
[2022-08-07] MEDS: SODIUM CHLORIDE 0.9% 1,000 ML IV SCH ×2 (16:09→23:02)
[2022-08-07] MEDS ORDERED: Potassium Replacement Protocol 1 EACH MISC MISCELLANE PRN (16:54)
--- NOTE | 2022-08-07 17:01 | P.PN ---
Subjective Progress Note Date: 08/07/22 This is a 61-year-old gentleman recently admitted with chest pain, atrial flutter, discharged on 08/01/2022, scheduled for outpatient cardioversion. Developed hematuria, returned to the ER,08/02/22, discharged with antibiotics for UTI. Returned again to the ER on 08/03/22 with complaints that the antibiotic- Bactrim became ,nauseated, heaving ,diaphoretic, tingly. Denies emesis, difficulty swallowing, denied shortness of breath, denied chest pain or palpitations. Denied weakness. Discharged the second time from the ER with new antibiotic of Keflex prescribed and advised to follow up with a urologist. Patient returned on 08/04/22 with complaints of chest pain, palpitations, some hematuria. Reported to the ER that he did not tile picker his Keflex prescription. Antibiotics initiated, hematuria improved. Evaluated by both cardiology and general surgery. Amiodarone discontinued secondary to possibly contributing to his GI upset, antiarrhythmics further adjusted. Scheduled for cardioversion on Sunday and EGD today. Denies chest pain, palpitations or shortness of breath. Minimal nausea, no emesis. Minimal abdominal pain. Up to bathroom this morning, tolerated exertion well. Reports mild shortness of breath this morning, none throughout the night. Vital signs stable, heart rates controlled, maintaining O2 sats in the high 90s on room air. Afebrile, normal WBC. Hemoglobin 14.6, platelets 142. Renal function stable. Objective - Vital Signs Vital signs: Vital Signs Temp 98.4 F 08/06/22 20:00 Pulse 78 08/07/22 16:26 Resp 16 08/07/22 16:26 BP 115/66 08/07/22 16:26 Pulse Ox 97 08/07/22 16:26 FiO2 21 08/06/22 08:16 Intake & Output 08/06/22 08/07/22 08/07/22 18:59 06:59 18:59 Intake Total 90 Balance 90 Intake: IV 90 Invasive Line 1 20 Invasive Line 2 20 Other: Voiding Method Toilet Toilet Toilet # Voids 1 1 1 - Exam PHYSICAL EXAMINATION: GEN:Patient is sitting up at the site of bed comfortably, no acute distress, awake alert and oriented 3. HEENT: Normocephalic. Neck is supple. Pupils reactive. Neckz: Supple, no JVD, carotid bruits, or thyromegaly. CHEST EXAMINATION: Unlabored, equal air entry. Lung barajas clear to auscultation. CARDIAC: Normal S1, S2, irregular rhythm, controlled rate, with no gallops. No murmurs. ABDOMEN: Soft. Bowel sounds present. Nontender. No organomegaly. Extremities: reveal no edema. No clubbing or cyanosis Neurological: Cranial nerves II through XII grossly intact, No focal deficits noted. Strength and sensation grossly intact. Skin: Warm and dry, No rash. - Labs CBC & Chem 7: 08/06/22 15:05 08/06/22 15:05 Assessment and Plan Assessment: Chronic Atrial flutter ,recently diagnosed in June 2022 Mild nonischemic cardiomyopathy Nausea, vomiting, possibly gastritis History of hiatal hernia Gastroesophageal reflux disease Possible Acute UTI, culture reporting no growth after 18 hours Obesity, BMI 31 Obstructive sleep apnea Hyperlipidemia Former nicotine dependence Depression Plan: Continue on current medication regime ,monitoring and symptomatic treatment.NPO for EGD today. Antiarrhythmics, Cardioversion/ablation as per cardiology. Empiric antibiotics. The impression and plan of care has been dictated as directed. : I performed a history and examination of this patient, discussed the same with the dictator. I agree with the dictator's note ,documented as a scribe. Any additional findings or plans will be noted.
[2022-08-07] MEDS: lamoTRIgine 100 MG TAB PO SCH (20:21)
[2022-08-07] MEDS: ATORVASTATIN 20 MG TAB PO SCH (20:21)
[2022-08-07] MEDS: cloNIDine HCL 0.1 MG TAB PO SCH (20:22)
[2022-08-08 08:02] VITALS: TEMP 98
[2022-08-08] MEDS: PANTOPRAZOLE 40 MG/10 ML VIAL IVP SCH (08:02)
[2022-08-08] MEDS: METOPROLOL TARTRATE 50 MG TAB PO SCH (08:03)
[2022-08-08] MEDS: ASPIRIN 81 MG PO SCH (08:03)
[2022-08-08] MEDS: buPROPion SR 100 MG TABLET.ER PO SCH (08:03)
[2022-08-08] MEDS: MULTIVITAMINS, THERA 1 EACH TAB PO SCH (08:03)
[2022-08-08] MEDS: METOCLOPRAMIDE 5 MG/ML 2 ML VIAL IVP PRN (09:57)
[2022-08-08] MEDS ORDERED: APIXABAN 5 MG TAB PO SCH (10:00)
[2022-08-08 13:28] VITALS: BP 120/54; PULSE 70; RESP 16
--- NOTE | 2022-08-08 14:15 | P.DS ---
Providers Date of admission: 08/04/22 14:58 Expected date of discharge: 08/08/22 Attending physician: Teo Abreu MD Consults: 08/04/22 14:51 Consult Physician Urgent Consulting Provider: [facility] Consult Reason/Comments: A. fib with RVR Do you want consulting provider notified?: Yes 08/05/22 16:32 Consult Physician Urgent Consulting Provider: Yariel Osorio Consult Reason/Comments: poss amio toxicity leading to GI Upset Do you want consulting provider notified?: Yes Primary care physician: Shanon Abreu [facility] Course: Final diagnoses: Chronic Atrial flutter ,recently diagnosed in June 2022 Mild nonischemic cardiomyopathy Nausea, vomiting, antral gastritis per EGD Small hiatal hernia Gastroesophageal reflux disease Possible Acute UTI, culture reporting no growth after 18 hours Obesity, BMI 31 Obstructive sleep apnea Hyperlipidemia Former nicotine dependence Depression Hospital course:This is a 61-year-old gentleman recently admitted with chest pain, atrial flutter, discharged on 08/01/2022, scheduled for outpatient cardioversion. Developed hematuria, returned to the ER,08/02/22, discharged with antibiotics for UTI. Returned again to the ER on 08/03/22 with complaints that the antibiotic-Bactrim became ,nauseated, heaving ,diaphoretic, tingly. Denies emesis, difficulty swallowing, denied shortness of breath, denied chest pain or palpitations. Denied weakness. Discharged the second time from the ER with new antibiotic of Keflex prescribed and advised to follow up with a urologist. Patient returned on 08/04/22 with complaints of chest pain, palpitations, some hematuria. Reported to the ER that he did not picker and packer his Keflex prescription. Antibiotics initiated, hematuria improved. Evaluated by both cardiology and general surgery. Amiodarone discontinued secondary to possibly contributing to his GI upset, antiarrhythmics further adjusted. Scheduled for cardioversion on Sunday and EGD today. Denies chest pain, palpitations or shortness of breath. Minimal nausea, no emesis. Minimal abdominal pain. Up to bathroom this morning, tolerated exertion well. Reports mild shortness of breath this morning, none throughout the night. Vital signs stable, heart rates controlled, maintaining O2 sats in the high 90s on room air. Afebrile, normal WBC. Hemoglobin 14.6, platelets 142. Renal function stable. Evaluated by cardiology, Amiodarone discontinued -possibly contributing to his GI upset. Beta felicitas increased. Patient is to follow-up with cardiology for outpatient cardioversion. Evaluated by general surgery, underwent EGD reporting antral gastritis, small sliding hiatal hernia and cleared to resume Eliquis. Significant clinical improvement. This morning reports mild nausea, denies abdominal pain. Consuming 50% of breakfast and lunch. Denies chest pain palpitations or shortness of breath. Denies lightheadedness, dizziness or palpitations. Cleared by general surgery and cardiology for discharge. Patient will be discharged home today in a stable condition with guarded prognosis. The impression and plan of care has been dictated as directed. : I performed a history and examination of this patient, discussed the same with the dictator. I agree with the dictator's note ,documented as a scribe. Any additional findings or plans will be noted. Patient Condition at Discharge: Stable Plan - Discharge Summary Discharge Rx Participant: No New Discharge Prescriptions: New QUEtiapine FUMARATE [SEROquel XR] 300 mg PO HS #1 tab Ondansetron Odt [Zofran Odt] 4 mg PO Q8HR PRN #12 tab PRN Reason: Nausea Continue lamoTRIgine [LaMICtal] 200 mg PO HS Aspirin 81 mg PO DAILY Multivitamins, Thera [Multivitamin (formulary)] 1 tab PO DAILY Omeprazole 40 mg PO HS Metoprolol Tartrate [Lopressor] 50 mg PO BID Cephalexin [Keflex] 500 mg PO Q6H buPROPion HCL [Wellbutrin SR] 200 mg PO DAILY Apixaban [Eliquis] 5 mg PO BID #60 tab Atorvastatin [Lipitor] 20 mg PO HS #30 tab cloNIDine HCL 0.1 mg PO HS #30 tablet Discontinued Amiodarone [Cordarone] 200 mg PO DAILY Discharge Medication List Aspirin 81 mg PO DAILY 04/25/18 [History] lamoTRIgine [LaMICtal] 200 mg PO HS 04/25/18 [History] Multivitamins, Thera [Multivitamin (formulary)] 1 tab PO DAILY 12/13/20 [History] Omeprazole 40 mg PO HS 07/10/22 [History] buPROPion HCL [Wellbutrin SR] 200 mg PO DAILY 07/13/22 [History] Apixaban [Eliquis] 5 mg PO BID #60 tab 07/15/22 [Rx] Atorvastatin [Lipitor] 20 mg PO HS #30 tab 07/15/22 [Rx] Metoprolol Tartrate [Lopressor] 50 mg PO BID 07/31/22 [History] cloNIDine HCL 0.1 mg PO HS #30 tablet 08/01/22 [Rx] Cephalexin [Keflex] 500 mg PO Q6H 08/04/22 [History] Ondansetron Odt [Zofran Odt] 4 mg PO Q8HR PRN #12 tab 08/08/22 [Rx] QUEtiapine FUMARATE [SEROquel XR] 300 mg PO HS #1 tab 08/08/22 [Rx] Follow up Appointment(s)/Referral(s): Redd Berman MD [STAFF PHYSICIAN] - 08/10/22 4:00 pm (Follow up with Dr. William) Shanon Abreu DO [Primary Care Provider] - 08/10/22 11:30 am (Follow up in [facility] office) Patient Instructions/Handouts: Atrial Flutter (GEN), Acute Nausea and Vomiting (ED) Discharge/Stand Alone Forms: Who Do I Call?, Community Resources, Help In The Home, Personal Engineered Wood Designer Discharge Disposition: HOME SELF-CARE
--- NOTE | 2022-08-08 14:41 | P.PN ---
Subjective Progress Note Date: 08/08/22 CHIEF COMPLAINT: Epigastric pain HISTORY OF PRESENT ILLNESS: Patient status post EGD revealing antral gastritis and small sliding hiatal hernia. Patient did have some nausea and episode of dry heaves this morning. He was able to eat a small amount of breakfast. Patient is afebrile. He has been up and ambulate in. Hemoglobin stable at 14.6. PHYSICAL EXAM: VITAL SIGNS: Reviewed. GENERAL: Well-developed in no acute distress. HEENT: No sclera icterus. Extraocular movements grossly intact. Moist buccal mucosa. Head is atraumatic, normocephalic. ABDOMEN: Soft. Nondistended. Minimal epigastric tenderness NEUROLOGIC: Alert and oriented. Cranial nerves II through XII grossly intact. ASSESSMENT: 1. Epigastric pain status post EGD revealing antral gastritis and small sliding hiatal hernia PLAN: -Okay for discharge from surgical standpoint tolerating lunch this afternoon -Continue omeprazole [facility] Agent note has been reviewed by physician. Signing provider agrees with the documented findings, assessment, and plan of care. Objective - Vital Signs Vital signs: Vital Signs Temp 98.0 F 08/08/22 08:00 Pulse 70 08/08/22 11:42 Resp 16 08/08/22 11:42 BP 120/54 08/08/22 11:42 Pulse Ox 96 08/08/22 11:42 FiO2 21 08/06/22 08:16 Intake & Output 08/07/22 08/08/22 08/08/22 18:59 06:59 18:59 Intake Total 90 540 118 Balance 90 540 118 Intake: IV 90 Invasive Line 1 20 Invasive Line 2 20 Oral 0 540 118 Other: Voiding Method Toilet Toilet Toilet # Voids 1 1 1 - Labs CBC & Chem 7: 08/06/22 15:05 08/06/22 15:05
== END 2022-08-08 13:47 | disposition home or self-care (01) ==
LOC: EC 12:17 → 3SCARD 14:58
PROVIDERS: ADMIT Family Medicine; ATTEND Family Medicine
DX: K29.50 Unspecified chronic gastritis without bleeding (principal); K44.9 Diaphragmatic hernia without obstruction or gangrene; I48.92 Unspecified atrial flutter; I42.8 Other cardiomyopathies; K21.9 Gastro-esophageal reflux disease without esophagitis; Z91.148 Patient's other noncompliance with medication regimen for other reason; E66.9 Obesity, unspecified; Z68.31 Body mass index [BMI] 31.0-31.9, adult; G47.33 Obstructive sleep apnea (adult) (pediatric); E78.5 Hyperlipidemia, unspecified; F32.A Depression, unspecified; Z90.49 Acquired absence of other specified parts of digestive tract; Z98.1 Arthrodesis status; Z98.890 Other specified postprocedural states; Z87.891 Personal history of nicotine dependence; Z80.9 Family history of malignant neoplasm, unspecified; Z79.82 Long term (current) use of aspirin; Z79.899 Other long term (current) drug therapy
CPT/HCPCS: 96376 ×2; 96361 ×2; 96375 ×2; 96365; 96366; 99285; 36415; 94760 ×3; 93005; 88305; 80053; 80048 ×2; 84443 ×2; 83735; 84484; 85025 ×3; 85610; 85730; 81003; 71046; 76700; 43239; G0378 ×5; J2765 ×3; S0106 ×4; J2405 ×2; J0696; J2704; C9113 ×4

== ENCOUNTER 2022-08-31 06:19 | Day surgery (SDC) | payer MEDICARE ==
[~2022-08-31 06:19] MED LIST changes: -DILTIAZEM 125 MG in SODIUM CHLORIDE 0.9% 100 ML IV SCH; -DILTIAZEM DRIP BOLUS FROM BAG 1 MG SOLN IV ONE; +LIDOCAINE 1% (10MG/ML) FOR IV START INTRADERMA PRN
[2022-08-31 06:48] VITALS: TEMP 97
[2022-08-31] MEDS ORDERED: PROPOFOL 10 MG/ML 20 ML VIAL IV ONE (07:02)
[2022-08-31] MEDS ORDERED: LIDOCAINE 2% INJ 20 MG/ML (2 ML VIAL) ONE (07:02)
[2022-08-31] MEDS ORDERED: LACTATED RINGERS 1,000 ML IV ONE (07:06)
--- NOTE | 2022-08-31 08:05 | ECHOT ---
TRANSESOPHAGEAL ECHOCARDIOGRAM INDICATION: Atypical atrial flutter. There were 2 procedures, Transesophageal echocardiogram and cardioversion. TRANSESOPHAGEAL ECHOCARDIOGRAM INDICATION: To rule out intracardiac thrombus prior to cardioversion. PROCEDURE NOTE: After obtaining informed consent, transesophageal echocardiogram was performed in left lateral position using an Omniplane probe. Local and IV sedation were obtained by the farm equipment mechanic apprentice. FINDINGS: 1. There is no intracardiac thrombus within the left atrial appendage, left atrium, right atrium, right ventricle, or left ventricle. 2. There is severe enlargement of the left atrium and moderate enlargement of the right atrium. 3. Left ventricle appears dilated, it shows diffuse global hypokinesis with severe LV dysfunction with an ejection fraction of 25% to 30%. Right ventricle appears mildly enlarged. 4. Mitral valve is anatomically normal. There is moderate central mitral regurgitation noted secondary to mitral annular dilatation. Aortic valve is a 3- leaflet valve. There is no evidence of aortic stenosis or regurgitation. There are mild atherosclerotic changes noted within the aorta. There is no evidence of [id number] shunt by color-flow Doppler or [id number] shunt by agitated saline contrast study. CONCLUSION: Severe left ventricular systolic dysfunction. Moderate mitral regurgitation. No intracardiac thrombus. PLAN: Proceed with cardioversion. MMODL / IJN: [id number] /
--- NOTE | 2022-08-31 08:05 | ECHOT ---
TRANSESOPHAGEAL ECHOCARDIOGRAM CARDIOVERSION NOTE: INDICATION: Atrial flutter. After obtaining informed consent, electrical cardioversion was performed using 120 joules of synchronized DC current. The patient converted to sinus rhythm following a single shock of 120 joules. He was adequately anticoagulated with Eliquis and the intracardiac thrombus was ruled out by BACILIO. The patient will be discharged home later this morning and will continue Eliquis. We will follow up with me in a week's time. MARIBELL / JULIUS: [id number] /
[2022-08-31] MEDS ORDERED: SODIUM CHLORIDE 0.9% 1,000 ML IV SCH (08:30)
[2022-08-31 08:56] VITALS: RESP 16
[2022-08-31 09:38] VITALS: BP 123/86; PULSE 71
== END 2022-08-31 09:51 | disposition home or self-care (01) ==
LOC: OR 06:19
PROVIDERS: ATTEND Internal Medicine Cardiovascular Disease
DX: I34.0 Nonrheumatic mitral (valve) insufficiency (principal); I48.3 Typical atrial flutter; I70.0 Atherosclerosis of aorta; E78.5 Hyperlipidemia, unspecified; G47.33 Obstructive sleep apnea (adult) (pediatric); Z99.89 Dependence on other enabling machines and devices; K21.9 Gastro-esophageal reflux disease without esophagitis; F32.A Depression, unspecified; Z79.01 Long term (current) use of anticoagulants; Z79.82 Long term (current) use of aspirin; Z79.899 Other long term (current) drug therapy
CPT/HCPCS: 93312; 93320; 93325; 92960; J2704; J2001

== ENCOUNTER 2022-09-01 18:13 | Emergency (ER) | payer MEDICARE ==
--- NOTE | 2022-09-01 18:40 | ED ---
Chest Pain HPI - General Chief Complaint: Chest Pain Stated Complaint: chest pain Time Seen by Provider: 09/01/22 18:33 Source: patient, RN notes reviewed, old records reviewed Mode of arrival: ambulatory Limitations: no limitations - History of Present Illness Initial Comments: This is a 61-year-old male DF today. Presents after having symptoms that he believes maybe related to his sliding hiatal hernia. Patient had cardiac ablation yesterday for atrial flutter. Currently lightheaded and dizzy with arm paresthesias bilaterally. No travel history no sick contacts no other complaints no recent change in medications no significant reflux currently mild chest pain. MD Complaint: chest pain, other (Reflux pain paresthesias) -: hour(s) Onset: during rest Pain Location: substernal Pain Radiation: none Severity: mild Quality: tightness Consistency: intermittent Improves With: nothing Worsens With: nothing Context: recent illness, new medications Anginal Symptoms: dyspnea Other Symptoms: palpitations Treatments Prior to Arrival: none - Related Data Home Medications Medication Instructions Recorded Confirmed Aspirin 81 mg PO BID 04/25/18 09/01/22 Omeprazole 40 mg PO DAILY 07/10/22 09/01/22 buPROPion HCL [Wellbutrin SR] 200 mg PO DAILY 07/13/22 09/01/22 Metoprolol Tartrate [Lopressor] 50 mg PO BID 07/31/22 09/01/22 Multivit-Min/FA/Lycopen/Lutein 1 tab PO DAILY 09/01/22 09/01/22 [Centrum Silver Men Tablet] Ondansetron Odt [Zofran Odt] 4 mg PO Q8H PRN 09/01/22 09/01/22 lamoTRIgine 100 mg PO HS 09/01/22 09/01/22 Previous Rx's Medication Instructions Recorded Apixaban [Eliquis] 5 mg PO BID #60 tab 07/15/22 Atorvastatin [Lipitor] 20 mg PO HS #30 tab 07/15/22 cloNIDine HCL 0.1 mg PO HS #30 tablet 08/01/22 QUEtiapine FUMARATE [SEROquel XR] 300 mg PO HS #1 tab 08/08/22 Allergies Allergy/AdvReac Type Severity Reaction Status Date / Time No Known Allergies Allergy Verified 09/01/22 20:21 Review of Systems ROS Statement: Those systems with pertinent positive or pertinent negative responses have been documented in the HPI. ROS Other: All systems not noted in ROS Statement are negative. EKG Findings - EKG Comments: EKG Findings:: EKG is sinus 62 AL 15 QRS 120 QTc 406 - EKG Results: EKG: interpreted by GAURAV Past Medical History Past Medical History: Atrial Flutter, GERD/Reflux, Hyperlipidemia, Sleep Apnea/CPAP/BIPAP Additional Past Medical History / Comment(s): SLEEP APNEA-NO MACHINE, hiatal hernia History of Any Multi-Drug Resistant Organisms: None Reported Past Surgical History: Cholecystectomy, Orthopedic Surgery Additional Past Surgical History / Comment(s): CERVICAL FUSION, "WRAP " FOR GERD (DEIDRE). RIGHT KNEE ARTHROSCOPY. Past Anesthesia/Blood Transfusion Reactions: No Reported Reaction Past Psychological History: Depression Smoking Status: Former smoker Past Alcohol Use History: None Reported Past Drug Use History: None Reported - Past Family History Mother Family Medical History: Cancer Father Family Medical History: Cancer General Exam Limitations: no limitations General appearance: alert, in no apparent distress, anxious Head exam: Present: atraumatic, normocephalic, normal inspection Eye exam: Present: normal appearance, PERRL, EOMI. Absent: scleral icterus, conjunctival injection, periorbital swelling ENT exam: Present: normal exam, mucous membranes moist Neck exam: Present: normal inspection. Absent: tenderness, meningismus, lymphadenopathy Respiratory exam: Present: normal lung sounds bilaterally. Absent: respiratory distress, wheezes, rales, rhonchi, stridor Cardiovascular Exam: Present: regular rate, normal rhythm, normal heart sounds. Absent: systolic murmur, diastolic murmur, rubs, gallop, clicks GI/Abdominal exam: Present: soft, normal bowel sounds. Absent: distended, tenderness, guarding, rebound, rigid Extremities exam: Present: normal inspection, full ROM, normal capillary refill. Absent: tenderness, pedal edema, joint swelling, calf tenderness Back exam: Present: normal inspection Neurological exam: Present: alert, oriented X3, CN II-XII intact Psychiatric exam: Present: normal affect, normal mood Skin exam: Present: warm, dry, intact, normal color. Absent: rash Course Vital Signs 09/01/22 09/01/22 18:16 20:46 Temperature 97.9 F 98.2 F Pulse Rate 71 62 Respiratory 20 16 Rate Blood Pressure 153/105 129/81 O2 Sat by Pulse 98 96 Oximetry - Reevaluation(s) Reevaluation #1: 09/01/22 19:32 Medical record is reviewed Reevaluation #2: 09/01/22 19:32 Patient symptoms remained improved Reevaluation #3: 09/01/22 19:32 Patient informed of results and questions answered Reevaluation #4: 09/01/22 19:32 Was pt. sent in by a medical professional or institution? @ -no Did you speak to anyone other than the patient for history? @ -no Did you review nursing and triage notes? @ -agree Were old charts reviewed? @ -no Differential Diagnosis? @ -prior EKG interpreted by me (3pts min.)? @ -yes X-rays interpreted by me (1pt min.)? @ -yes CT interpreted by me (1pt min.)? @ -no U/S interpreted by me (1pt. min.)? @ -no What testing was considered but not performed? (CT, X-rays, U/S, labs)? Why? @ -no What meds were considered but not given? Why? @ -no Did you discuss the management of the patient with other professionals? @ -no Did you reconcile home meds? @ -no Was smoking cessation discussed for >3mins.? @ -no Was critical care preformed (if so, how long)? @ -no Were there social determinants of health that impacted care today? How? (Homelessness, low income, unemployed, alcoholism, drug addiction, transportation, low edu. Level, literacy, decrease access to med. care, snf, rehab)? @ -no Was there de-escalation of care discussed even if they declined? (Discuss DNR or withdrawal of care, Hospice)? @ -no What co-morbidities impacted this encounter? (DM, HTN, Smoking, COPD, CAD, Cancer, CVA, Hep., AIDS, mental health diagnosis, sleep apnea, morbid obesity)? @ -none Was patient admitted / discharged? @ -61 male to the emergency department for evaluation of chest pain believes maybe related data hiatal hernia history of similar chest pain before. Near syncopal event this time with dizziness patient will be discharge home to follow-up with for cardiology evaluation and treatment Discharged Undiagnosed new problem with uncertain prognosis? @ -no Drug Therapy requiring intensive monitoring for toxicity (Heparin, Nitro, Insulin, Cardizem)? @ -no Were any procedures done? @ -no Diagnosis/symptom? @ -Chest pain Acute, or Chronic, or Acute on Chronic? @ -Acute on chronic Uncomplicated (without systemic symptoms) or Complicated (systemic symptoms)? @ -uncomplicated Side effects of treatment? @ -no Exacerbation, Progression, or Severe Exacerbation] @ -no Poses a threat to life or bodily function? @ -no Reevaluation #5: 09/01/22 19:32 Differential Chest Pain: Stable Angina, Unstable Angina, STEMI, NSTEMI Aortic Dissection, Pneumothorax, Musculoskeletal, Esophageal Spasm GERD, Cholecystitis, Pancreatitis, Zoster, this is not meant to be an all-inclusive list. Chest Pain MDM - MDM 61 male to the emergency department for evaluation of chest pain believes maybe related data hiatal hernia history of similar chest pain before. Near syncopal event this time with dizziness patient will be discharge home to follow-up with for cardiology evaluation and treatment Disposition Clinical Impression: Atypical chest pain, Chest pain, Hernia, hiatal, Atrial flutter, Tachycardia Disposition: HOME SELF-CARE Condition: Good Instructions (If sedation given, give patient instructions): Chest Pain (ED) Is patient prescribed a controlled substance at d/c from ED?: No Referrals: Shanon Abreu DO [Primary Care Provider] - 1-2 days Time of Disposition: 20:40
[2022-09-01 19:07] LABS: Basophils % (A) 0 %; Eosinophils # (A) 0.4 k/uL (0-0.7); Eosinophils % (A) 6 %; HGB 13.9 gm/dL (13.0-17.5); Lymphocytes % (A) 45 %; MCH 31.5 pg (25.0-35.0); MCHC 33.8 g/dL (31.0-37.0); MCV 93.1 fL (80.0-100.0); Mean Platelet Volume 8.9; Monocytes # (A) 0.3 k/uL (0-1.0); Monocytes % (A) 4 %; Neutrophils % (A) 44 %; Platelet Count 137 k/uL (150-450); RBC 4.41 m/uL (4.30-5.90); RDW 12.9 % (11.5-15.5); WBC 6.8 k/uL (3.8-10.6)
[2022-09-01 19:21] LABS: ALT 76 U/L (4-49); AST 59 U/L (17-59); African American GFR (CKD) 89 (>60 ml/min/1.73 sqM); Albumin 3.6 g/dL (3.5-5.0); Alkaline Phosphatase 98 U/L (38-126); Anion Gap 9 mmol/L; Blood Urea Nitrogen 20 mg/dL (9-20); Calcium 8.7 mg/dL (8.4-10.2); Carbon Dioxide 25 mmol/L (22-30); Chloride 108 mmol/L (98-107); Glucose 87 mg/dL (74-99); Lipase 241 U/L (23-300); Magnesium 2.1 mg/dL (1.6-2.3); Non-African American GFR(CKD) 77 (>60 ml/min/1.73 sqM); Sodium 142 mmol/L (137-145); Total Protein 6.2 g/dL (6.3-8.2)
--- NOTE | 2022-09-01 19:32 | XR ---
EXAMINATION TYPE: XR chest 2V DATE OF EXAM: 09/01/2022 7:10 PM COMPARISON: Chest radiographs from 08/04/2022 TECHNIQUE: XR chest 2V Frontal and lateral views of the chest. CLINICAL INDICATION:Male, 61 years old with history of Chest Pain; FINDINGS: Lungs/Pleura: There is no evidence of pleural effusion, focal consolidation, or pneumothorax. Pulmonary vascularity: Unremarkable. Heart/mediastinum: Cardiomediastinal silhouette is unremarkable. Musculoskeletal: No acute osseous pathology. IMPRESSION: No acute cardiopulmonary disease/process.
[2022-09-01 20:04] LABS: Partial Thromboplastin Time 25.4 sec (22.0-30.0); Prothrombin Time 10.8 sec (9.0-12.0)
[2022-09-01 20:47] VITALS: BP 129/81; PULSE 62; RESP 16; TEMP 98.2
== END 2022-09-01 20:47 | disposition home or self-care (01) ==
LOC: EC 18:13
DX: I48.92 Unspecified atrial flutter (principal); K44.9 Diaphragmatic hernia without obstruction or gangrene; K21.9 Gastro-esophageal reflux disease without esophagitis; F32.A Depression, unspecified; Z79.82 Long term (current) use of aspirin; Z79.899 Other long term (current) drug therapy; Z87.891 Personal history of nicotine dependence
CPT/HCPCS: 36415; 71046; 80053; 83690; 83735; 83880; 84484; 85025; 85610; 85730; 93005; 99285

== ENCOUNTER 2022-09-22 11:03 | Observation (INO) | payer MEDICARE ==
[2022-09-22] MEDS ORDERED: SODIUM CHLORIDE 0.9% 500 ML 500 ML IV STA (11:44)
--- NOTE | 2022-09-22 11:53 | ED ---
General Adult HPI - General Chief complaint: GI Bleed Stated complaint: Blood in stool Time Seen by Provider: 09/22/22 11:20 Source: patient, RN notes reviewed, old records reviewed Limitations: no limitations - History of Present Illness Initial comments: This is a 61-year-old male who is on eliquis for atrial fibrillation for which she was ablated recently. Patient comes in today because he had 2 episodes with some bright red blood per rectum. Patient states it was only a little bit. Patient denies any abdominal pain. Patient denies any rectal pain. Patient denies any history of rectal bleeding. Patient denies any hemorrhoid history. Patient denies chest pain difficulty breathing or shortness of breath per patient denies being lightheaded or dizzy. Patient denies any fever chills or cough. - Related Data Home Medications Medication Instructions Recorded Confirmed Aspirin 81 mg PO BID 04/25/18 09/22/22 Omeprazole 40 mg PO BID 07/10/22 09/22/22 buPROPion HCL [Wellbutrin SR] 200 mg PO DAILY 07/13/22 09/22/22 Metoprolol Tartrate [Lopressor] 50 mg PO BID 07/31/22 09/22/22 Multivit-Min/FA/Lycopen/Lutein 1 tab PO DAILY 09/01/22 09/22/22 [Centrum Silver Men Tablet] lamoTRIgine 200 mg PO HS 09/01/22 09/22/22 Losartan [Cozaar] 25 mg PO HS 09/22/22 09/22/22 cloNIDine HCL 0.1 mg PO BID 09/22/22 09/22/22 Previous Rx's Medication Instructions Recorded Apixaban [Eliquis] 5 mg PO BID #60 tab 07/15/22 Atorvastatin [Lipitor] 20 mg PO HS #30 tab 07/15/22 QUEtiapine FUMARATE [SEROquel XR] 300 mg PO HS #1 tab 08/08/22 Allergies Allergy/AdvReac Type Severity Reaction Status Date / Time No Known Allergies Allergy Verified 09/22/22 12:35 Review of Systems ROS Statement: Those systems with pertinent positive or pertinent negative responses have been documented in the HPI. ROS Other: All systems not noted in ROS Statement are negative. Past Medical History Past Medical History: Atrial Flutter, GERD/Reflux, Hyperlipidemia, Sleep Apnea/CPAP/BIPAP Additional Past Medical History / Comment(s): SLEEP APNEA-NO MACHINE, hiatal hernia History of Any Multi-Drug Resistant Organisms: None Reported Past Surgical History: Cholecystectomy, Orthopedic Surgery Additional Past Surgical History / Comment(s): CERVICAL FUSION, "WRAP " FOR GERD (DEIDRE). RIGHT KNEE ARTHROSCOPY., cardiac conversion Past Anesthesia/Blood Transfusion Reactions: No Reported Reaction Past Psychological History: Depression Smoking Status: Former smoker Past Alcohol Use History: None Reported Past Drug Use History: None Reported - Past Family History Mother Family Medical History: Cancer Father Family Medical History: Cancer General Exam - General Exam Comments Initial Comments: GENERAL: Patient is well-developed and well-nourished. Patient is nontoxic and well-hydrated and is in no acute distress. ENT: Neck is soft and supple. No significant lymphadenopathy is noted. Oropharynx is clear. Moist mucous membranes. Neck has full range of motion without eliciting any pain. EYES: The sclera were anicteric and conjunctiva were pink and moist. Extraocular mov ements were intact and pupils were equal round and reactive to light. Eyelids were unremarkable. PULMONARY: Unlabored respirations. Good breath sounds bilaterally. No audible rales rhonchi or wheezing was noted. CARDIOVASCULAR: There is a regular rate and rhythm without any murmurs gallops or rubs. ABDOMEN: Soft and nontender with normal bowel sounds. RECTAL: On rectal exam there was no obvious site of bleeding SKIN: Skin is clear with no lesions or rashes and otherwise unremarkable. NEUROLOGIC: Patient is alert and oriented x3. Cranial nerves II through XII are grossly intact. Motor and sensory are also intact. Normal speech, volume and content. Symmetrical smile. MUSCULOSKELETAL: Normal extremities with adequate strength and full range of motion. LYMPHATICS: No significant lymphadenopathy is noted PSYCHIATRIC: Normal psychiatric evaluation. Limitations: no limitations Course Vital Signs 09/22/22 09/22/22 11:17 12:21 Temperature 98 F Pulse Rate 61 56 L Respiratory 18 18 Rate Blood Pressure 109/73 117/74 O2 Sat by Pulse 97 96 Oximetry Medical Decision Making - Medical Decision Making EKG was interpreted by myself shows sinus bradycardia 59 bpm MO interval 185 QRS is under 22 QT interval 400 QTC is 399. Patient's EKG shows no ST segment elevation or depression. Was pt. sent in by a medical professional or institution (, PA, BANK TELLER MACHINE MECHANIC, urgent care, hospital, or correction...) When possible be specific @ -No Did you speak to anyone other than the patient for history (EMS, parent, family, police, friend...)? What history was obtained from this source @ -No Did you review nursing and triage notes (agree or disagree)? Why? @ -I reviewed and agree with nursing and triage notes Were old charts reviewed (outside hosp., previous admission, EMS record, old EKG, old radiological studies, urgent care reports/EKG's, correction records)? Report findings @ -I reviewed patient's prior lab work prior charts Differential Diagnosis (chest pain, altered mental status, abdominal pain women, abdominal pain men, vaginal bleeding, weakness, fever, dyspnea, syncope, headache, dizziness, GI bleed, back pain, seizure, CVA, palpatations, mental health, musculoskeletal)? @ -Differential GI Bleed: Esophageal varices, aortoenteric fistula, Giovana-Sellers, gastritis, peptic ulcer disease, diverticulosis, inflammatory bowel disease, hemorrhoids, fissure, colitis, malignancy, Meckels diverticulum, this is not meant to be an all- inclusive list. EKG interpreted by me (3pts min.). @ -As above X-rays interpreted by me (1pt min.). @ -None done CT interpreted by me (1pt min.). @ -None done U/S interpreted by me (1pt. min.). @ -None done What testing was considered but not performed or refused? (CT, X-rays, U/S, labs)? Why? @ -None What meds were considered but not given or refused? Why? @ -None Did you discuss the management of the patient with other professionals (odilon santa i.e. , PA, BANK TELLER MACHINE MECHANIC, lab, RT, psych nurse, social insurance specialist, mess cook, teacher, state wildlife officer, field case manager)? Give summary @ -I spoke with Dr. Shannon he agreed to admit the patient to the patient I wrote admitting orders Was smoking cessation discussed for >3mins.? @ -No Was critical care preformed (if so, how long)? @ -No Were there social determinants of health that impacted care today? How? (Homelessness, low income, unemployed, alcoholism, drug addiction, transportation, low edu. Level, literacy, decrease access to med. care, [facility] [facility], rehab)? @ -No Was there de-escalation of care discussed even if they declined (Discuss DNR or withdrawal of care, Hospice)? DNR status @ -No What co-morbidities impacted this encounter? (DM, HTN, Smoking, COPD, CAD, Cancer, CVA, ARF, Chemo, Hep., AIDS, mental health diagnosis, sleep apnea, morbid obesity)? @ -None Was patient admitted / discharged? Hospital course, mention meds given and route, prescriptions, significant lab abnormalities, going to OR and other pertinent info. @ -Stable throughout his ED course I spoke with cardiology and they did not want the patient stop his eliquis. I spoke with Dr. Shannon agreed to admit the patient admitted the patient wrote admitting orders I did a CBC every 6 hours Undiagnosed new problem with uncertain prognosis? @ -No Drug Therapy requiring intensive monitoring for toxicity (Heparin, Nitro, Insuli n, Cardizem)? @ -No Were any procedures done? @ -No Diagnosis/symptom? @ -GI bleed Acute, or Chronic, or Acute on Chronic? @ -Acute Uncomplicated (without systemic symptoms) or Complicated (systemic symptoms)? @ -Complicate Side effects of treatment? @ -No Exacerbation, Progression, or Severe Exacerbation? @ -No Poses a threat to life or bodily function? How? (Chest pain, [place], [place], pneumonia, PE, COPD, DKA, ARF, appy, cholecystitis, CVA, Diverticulitis, Homicidal, Suicidal, threat to staff... and all critical care pts) @ -No - Lab Data Result diagrams: 09/22/22 11:53 09/22/22 11:53 Lab Results 09/22/22 09/22/22 09/22/22 Range/Units 11:45 11:50 11:53 WBC 7.5 (3.8-10.6) k/uL RBC 4.65 (4.30-5.90) m/uL Hgb 14.5 (13.0-17.5) gm/dL Hct 42.8 (39.0-53.0) % MCV 92.0 (80.0-100.0) fL MCH 31.1 (25.0-35.0) pg MCHC 33.8 (31.0-37.0) g/dL RDW 12.7 (11.5-15.5) % Plt Count 154 (150-450) k/uL MPV 9.0 Neutrophils % 54 % Lymphocytes % 33 % Monocytes % 6 % Eosinophils % 6 % Basophils % 0 % Neutrophils # 4.0 (1.3-7.7) k/uL Lymphocytes # 2.4 (1.0-4.8) k/uL Monocytes # 0.4 (0-1.0) k/uL Eosinophils # 0.4 (0-0.7) k/uL Basophils # 0.0 (0-0.2) k/uL PT (9.0-12.0) sec INR (<1.2) APTT (22.0-30.0) sec Sodium (137-145) mmol/L Potassium (3.5-5.1) mmol/L Chloride (98-107) mmol/L Carbon Dioxide (22-30) mmol/L Anion Gap mmol/L BUN (9-20) mg/dL Creatinine (0.66-1.25) mg/dL Est GFR (CKD-EPI)AfAm (>60 ml/min/1.73 sqM) Est GFR (CKD-EPI)NonAf (>60 ml/min/1.73 sqM) Glucose (74-99) mg/dL Calcium (8.4-10.2) mg/dL Magnesium (1.6-2.3) mg/dL Total Bilirubin (0.2-1.3) mg/dL AST (17-59) U/L ALT (4-49) U/L Alkaline Phosphatase (38-126) U/L Troponin I (0.000-0.034) ng/mL Total Protein (6.3-8.2) g/dL Albumin (3.5-5.0) g/dL Blood Type O Positive Blood Type Confirm O Positive Blood Type Recheck No Previous Record Bld Type Recheck Status CABO Indicated Antibody Screen NEGATIVE Spec Expiration Date 09/25/2022235209/22/22 09/22/22 09/22/22 Range/Units 11:53 11:53 11:53 WBC (3.8-10.6) k/uL RBC (4.30-5.90) m/uL Hgb (13.0-17.5) gm/dL Hct (39.0-53.0) % MCV (80.0-100.0) fL MCH (25.0-35.0) pg MCHC (31.0-37.0) g/dL RDW (11.5-15.5) % Plt Count (150-450) k/uL MPV Neutrophils % % Lymphocytes % % Monocytes % % Eosinophils % % Basophils % % Neutrophils # (1.3-7.7) k/uL Lymphocytes # (1.0-4.8) k/uL Monocytes # (0-1.0) k/uL Eosinophils # (0-0.7) k/uL Basophils # (0-0.2) k/uL PT 10.8 (9.0-12.0) sec INR 1.0 (<1.2) APTT 26.2 (22.0-30.0) sec Sodium 140 (137-145) mmol/L Potassium 4.2 (3.5-5.1) mmol/L Chloride 110 H (98-107) mmol/L Carbon Dioxide 23 (22-30) mmol/L Anion Gap 7 mmol/L BUN 30 H (9-20) mg/dL Creatinine 1.04 (0.66-1.25) mg/dL Est GFR (CKD-EPI)AfAm 89 (>60 ml/min/1.73 sqM) Est GFR (CKD-EPI)NonAf 77 (>60 ml/min/1.73 sqM) Glucose 94 (74-99) mg/dL Calcium 8.9 (8.4-10.2) mg/dL Magnesium 2.2 (1.6-2.3) mg/dL Total Bilirubin 1.3 (0.2-1.3) mg/dL AST 29 (17-59) U/L ALT 40 (4-49) U/L Alkaline Phosphatase 105 (38-126) U/L Troponin I <0.012 (0.000-0.034) ng/mL Total Protein 6.7 (6.3-8.2) g/dL Albumin 3.8 (3.5-5.0) g/dL Blood Type Blood Type Confirm Blood Type Recheck Bld Type Recheck Status Antibody Screen Spec Expiration Date Disposition Clinical Impression: GI bleed Disposition[facility] Referrals: Ame Abreu MD [STAFF PHYSICIAN] - 1-2 days Time of Disposition: 13:47
[2022-09-22 12:17] LABS: ALT 40 U/L (4-49); AST 29 U/L (17-59); African American GFR (CKD) 89 (>60 ml/min/1.73 sqM); Albumin 3.8 g/dL (3.5-5.0); Alkaline Phosphatase 105 U/L (38-126); Anion Gap 7 mmol/L; Blood Urea Nitrogen 30 mg/dL (9-20); Calcium 8.9 mg/dL (8.4-10.2); Carbon Dioxide 23 mmol/L (22-30); Chloride 110 mmol/L (98-107); Glucose 94 mg/dL (74-99); Magnesium 2.2 mg/dL (1.6-2.3); Non-African American GFR(CKD) 77 (>60 ml/min/1.73 sqM); Potassium 4.2 mmol/L (3.5-5.1); Sodium 140 mmol/L (137-145); Total Bilirubin 1.3 mg/dL (0.2-1.3); Total Protein 6.7 g/dL (6.3-8.2)
[2022-09-22 12:35] LABS: Basophils % (A) 0 %; Eosinophils # (A) 0.4 k/uL (0-0.7); Eosinophils % (A) 6 %; HCT 42.8 % (39.0-53.0); HGB 14.5 gm/dL (13.0-17.5); Lymphocytes # (A) 2.4 k/uL (1.0-4.8); Lymphocytes % (A) 33 %; MCH 31.1 pg (25.0-35.0); MCHC 33.8 g/dL (31.0-37.0); Monocytes # (A) 0.4 k/uL (0-1.0); Monocytes % (A) 6 %; Neutrophils % (A) 54 %; Platelet Count 154 k/uL (150-450); RBC 4.65 m/uL (4.30-5.90); RDW 12.7 % (11.5-15.5); WBC 7.5 k/uL (3.8-10.6)
[2022-09-22 12:50] LABS: Partial Thromboplastin Time 26.2 sec (22.0-30.0); Prothrombin Time 10.8 sec (9.0-12.0)
[2022-09-22] MEDS ORDERED: SODIUM CHLORIDE 0.9% 1,000 ML IV ONE (13:47)
--- NOTE | 2022-09-22 16:20 | P.HPIM ---
History of Present Illness 61-year-old male came in with a 2 episodes of bright red blood per rectum about the 20-30 mL each time, had a recent ablation procedure for which patient is on anticoagulation with Eliquis, patient's hemoglobin is 14.5. Patient is also on aspirin twice a day although doesn't have any coronary artery disease history. REVIEW OF SYSTEMS: CONSTITUTIONAL: No fever, no malaise, no fatigue. HEENT: No recent visual problems or hearing problems. Denied any sore throat. CARDIOVASCULAR: No chest pain, orthopnea, PND, no palpitations, no syncope. PULMONARY: No shortness of breath, no cough, no hemoptysis. GASTROINTESTINAL: No diarrhea, no nausea, no vomiting, no abdominal pain. NEUROLOGICAL: No headaches, no weakness, no numbness. HEMATOLOGICAL: Denies any bleeding or petechiae. GENITOURINARY: Denies any burning micturition, frequency, or urgency. MUSCULOSKELETAL/RHEUMATOLOGICAL: Denies any joint pain, swelling, or any muscle pain. ENDOCRINE: Denies any polyuria or polydipsia. The rest of the 14-point review of systems is negative. PHYSICAL EXAMINATION: GENERAL: The patient is alert and oriented x3, not in any acute distress. Well developed, well nourished. HEENT: Pupils are round and equally reacting to light. EOMI. No scleral icterus. No conjunctival pallor. Normocephalic, atraumatic. No pharyngeal erythema. No thyromegaly. CARDIOVASCULAR: S1 and S2 present. No murmurs, rubs, or gallops. PULMONARY: Chest is clear to auscultation, no wheezing or crackles. ABDOMEN: Soft, nontender, nondistended, normoactive bowel sounds. No palpable organomegaly. MUSCULOSKELETAL: No joint swelling or deformity. EXTREMITIES: No cyanosis, clubbing, or pedal edema. NEUROLOGICAL: Gross neurological examination did not reveal any focal deficits. SKIN: No rashes. Assessment and plan 1 acute lower GI bleed: Either hemorrhoidal or diverticular, neurosurgery consult. Patient will be continued on Eliquis, as per cardiology but will be monitored overnight if he has further episodes of GI bleed this need to be discontinue and patient is to be given fresh frozen plasma. Aspirin will be discontinued as I don't see need for aspirin. -Gastroesophageal reflux disease -Hypertension -History of atrial fibrillation status post ablation presently sinus rhythm -DVT prophylaxis: Patient is on anticoagulation as mentioned above Past Medical History Past Medical History: Atrial Flutter, GERD/Reflux, Hyperlipidemia, Sleep Apnea/CPAP/BIPAP Additional Past Medical History / Comment(s): SLEEP APNEA-NO MACHINE, hiatal hernia History of Any Multi-Drug Resistant Organisms: None Reported Past Surgical History: Cholecystectomy, Orthopedic Surgery Additional Past Surgical History / Comment(s): CERVICAL FUSION, "WRAP " FOR GERD (DEIDRE). RIGHT KNEE ARTHROSCOPY., cardiac conversion Past Anesthesia/Blood Transfusion Reactions: No Reported Reaction Past Psychological History: Depression Smoking Status: Former smoker Past Alcohol Use History: None Reported Past Drug Use History: None Reported - Past Family History Mother Family Medical History: Cancer Father Family Medical History: Cancer Medications and Allergies Home Medications Medication Instructions Recorded Confirmed Type Aspirin 81 mg PO BID 04/25/18 09/22/22 History Omeprazole 40 mg PO BID 07/10/22 09/22/22 History buPROPion HCL [Wellbutrin SR] 200 mg PO DAILY 07/13/22 09/22/22 History Apixaban [Eliquis] 5 mg PO BID #60 tab 07/15/22 09/22/22 Rx Atorvastatin [Lipitor] 20 mg PO HS #30 tab 07/15/22 09/22/22 Rx Metoprolol Tartrate [Lopressor] 50 mg PO BID 07/31/22 09/22/22 History QUEtiapine FUMARATE [SEROquel XR] 300 mg PO HS #1 tab 08/08/22 09/22/22 Rx Multivit-Min/FA/Lycopen/Lutein 1 tab PO DAILY 09/01/22 09/22/22 History [Centrum Silver Men Tablet] lamoTRIgine 200 mg PO HS 09/01/22 09/22/22 History Losartan [Cozaar] 25 mg PO HS 09/22/22 09/22/22 History cloNIDine HCL 0.1 mg PO BID 09/22/22 09/22/22 History Allergies Allergy/AdvReac Type Severity Reaction Status Date / Time No Known Allergies Allergy Verified 09/22/22 12:35 Physical Exam Vitals: Vital Signs Temp Pulse Pulse Resp BP BP Pulse Ox 09/22/22 15:00 98.0 F 54 L 51 L 17 119/77 118/74 98 09/22/22 14:00 55 L 18 119/77 97 09/22/22 13:00 55 L 18 116/72 97 09/22/22 12:21 56 L 18 117/74 96 09/22/22 11:17 98 F 61 18 109/73 97 Intake and Output 09/22/22 09/22/22 09/22/22 06:59 14:59 22:59 Other: Weight 92.079 kg Results CBC & Chem 7: 09/22/22 11:53 09/22/22 11:53 Labs: Abnormal Lab Results - Last 24 Hours (Table) 09/22/22 Range/Units 11:53 Chloride 110 H (98-107) mmol/L BUN 30 H (9-20) mg/dL
[2022-09-22] MEDS: PANTOPRAZOLE 40 MG TABLET PO SCH (18:47)
[2022-09-22 19:12] VITALS: RESP 16
[2022-09-22 21:00] LABS: Basophils % (A) 0 %; Eosinophils # (A) 0.4 k/uL (0-0.7); Eosinophils % (A) 6 %; HGB 13.9 gm/dL (13.0-17.5); Lymphocytes # (A) 3.3 k/uL (1.0-4.8); Lymphocytes % (A) 44 %; MCH 31.6 pg (25.0-35.0); MCHC 33.2 g/dL (31.0-37.0); MCV 95.3 fL (80.0-100.0); Mean Platelet Volume 9.3; Monocytes # (A) 0.4 k/uL (0-1.0); Monocytes % (A) 5 %; Neutrophils # (A) 3.3 k/uL (1.3-7.7); Neutrophils % (A) 44 %; Platelet Count 157 k/uL (150-450); RDW 12.5 % (11.5-15.5); WBC 7.7 k/uL (3.8-10.6)
[2022-09-22] MEDS ORDERED: ATORVASTATIN 20 MG TAB PO SCH (21:00)
[2022-09-22] MEDS ORDERED: lamoTRIgine 100 MG TAB PO SCH (21:00)
[2022-09-22] MEDS ORDERED: LOSARTAN 25 MG TAB PO SCH (21:00)
[2022-09-22] MEDS: APIXABAN 5 MG TAB PO SCH (21:30)
[2022-09-22] MEDS: METOPROLOL TARTRATE 50 MG TAB PO SCH (21:31)
[2022-09-22] MEDS: QUEtiapine 50 MG TAB PO SCH (21:31)
[2022-09-23] MEDS: PANTOPRAZOLE 40 MG TABLET PO SCH (05:36)
[2022-09-23 08:32] VITALS: BP 124/81; PULSE 53; TEMP 97.3
[2022-09-23] MEDS ORDERED: buPROPion SR 100 MG TABLET.ER PO SCH (09:00)
[2022-09-23 09:22] LABS: HCT 39.5 % (39.6-50.0); HGB 13.1 d/dL (12.0-15.0); MCH 30.8 pg (27.0-32.0); MCHC 33.2 d/dL (32.0-37.0); MCV 92.9 FL (80.0-97.0); NRBC Per 100 WBC 0 X 10*3/uL (0.00-0.01); Platelet Count 146 X 10*3/uL (140-440); RBC 4.25 X 10*6/uL (4.40-5.60); RDW 12.4 % (11.5-14.5); WBC 7.05 X 10*3/uL (4.50-10.00)
[2022-09-23] MEDS: METOPROLOL TARTRATE 50 MG TAB PO SCH (09:52)
[2022-09-23] MEDS: APIXABAN 5 MG TAB PO SCH (09:52)
[2022-09-23] MEDS: QUEtiapine 50 MG TAB PO SCH (10:05)
--- NOTE | 2022-09-23 11:07 | P.GSCN ---
History of Present Illness Consult date: 09/23/22 Reason for Consult: Rectal bleeding History of present illness: 61-year-old male on a liquids after recent cardiac ablation. Came to the [facility] with 2-3 episodes of bright red blood per rectum. This morning he said he had normal stools. He is still on anticoagulation. Denies abdominal pain. Last colonoscopy he thinks was 2 years ago. Last EGD was a few weeks ago. Patient does not feel any pain, lump, or mass at anus. Review of Systems The patient denies any acute changes in vision or hearing, no dysphagia or odynophagia, no chest pain or shortness of breath, no dysuria or hematuria, no headache, no runny nose, no melena, no unexplained weight loss Past Medical History Past Medical History: Atrial Flutter, GERD/Reflux, Hyperlipidemia, Sleep Apnea/CPAP/BIPAP Additional Past Medical History / Comment(s): SLEEP APNEA-NO MACHINE, hiatal hernia History of Any Multi-Drug Resistant Organisms: None Reported Past Surgical History: Cholecystectomy, Orthopedic Surgery Additional Past Surgical History / Comment(s): CERVICAL FUSION, "WRAP " FOR GERD (DEIDRE). RIGHT KNEE ARTHROSCOPY., cardiac conversion Past Anesthesia/Blood Transfusion Reactions: No Reported Reaction Past Psychological History: Depression Smoking Status: Former smoker Past Alcohol Use History: None Reported Additional Past Alcohol Use History / Comment(s): QUIT 2021,SMOKED 1/2 PPD, STARTED SMOKING AGE 17. Past Drug Use History: None Reported - Past Family History Mother Family Medical History: Cancer Father Family Medical History: Cancer Medications and Allergies Home Medications Medication Instructions Recorded Confirmed Type Aspirin 81 mg PO BID 04/25/18 09/22/22 History Omeprazole 40 mg PO BID 07/10/22 09/22/22 History buPROPion HCL [Wellbutrin SR] 200 mg PO DAILY 07/13/22 09/22/22 History Apixaban [Eliquis] 5 mg PO BID #60 tab 07/15/22 09/22/22 Rx Atorvastatin [Lipitor] 20 mg PO HS #30 tab 07/15/22 09/22/22 Rx Metoprolol Tartrate [Lopressor] 50 mg PO BID 07/31/22 09/22/22 History QUEtiapine FUMARATE [SEROquel XR] 300 mg PO HS #1 tab 08/08/22 09/22/22 Rx Multivit-Min/FA/Lycopen/Lutein 1 tab PO DAILY 09/01/22 09/22/22 History [Centrum Silver Men Tablet] lamoTRIgine 200 mg PO HS 09/01/22 09/22/22 History Losartan [Cozaar] 25 mg PO HS 09/22/22 09/22/22 History cloNIDine HCL 0.1 mg PO BID 09/22/22 09/22/22 History Allergies Allergy/AdvReac Type Severity Reaction Status Date / Time No Known Allergies Allergy Verified 09/22/22 12:35 Surgical - Exam Vital Signs Temp Pulse Resp BP Pulse Ox 98 F 61 18 109/73 97 09/22/22 11:17 09/22/22 11:17 09/22/22 11:17 09/22/22 11:17 09/22/22 11:17 Physical exam: General: Well-developed, well-nourished HEENT: Normocephalic, sclerae nonicteric Abdomen: Nontender, nondistended Extremities: No edema Neuro: Alert and oriented Results - Labs 09/23/22 06:05 09/22/22 11:53 Abnormal Lab Results - Last 24 Hours (Table) 09/22/22 09/23/22 Range/Units 11:53 06:05 RBC 4.25 L (4.40-5.60) X 10*6/uL Hct 39.5 L (39.6-50.0) % Chloride 110 H (98-107) mmol/L BUN 30 H (9-20) mg/dL Diabetes panel 09/22/22 Range/Units 11:53 Sodium 140 (137-145) mmol/L Potassium 4.2 (3.5-5.1) mmol/L Chloride 110 H (98-107) mmol/L Carbon Dioxide 23 (22-30) mmol/L BUN 30 H (9-20) mg/dL Creatinine 1.04 (0.66-1.25) mg/dL Glucose 94 (74-99) mg/dL Calcium 8.9 (8.4-10.2) mg/dL AST 29 (17-59) U/L ALT 40 (4-49) U/L Alkaline Phosphatase 105 (38-126) U/L Total Protein 6.7 (6.3-8.2) g/dL Albumin 3.8 (3.5-5.0) g/dL Calcium panel 09/22/22 Range/Units 11:53 Calcium 8.9 (8.4-10.2) mg/dL Albumin 3.8 (3.5-5.0) g/dL Pituitary panel 09/22/22 Range/Units 11:53 Sodium 140 (137-145) mmol/L Potassium 4.2 (3.5-5.1) mmol/L Chloride 110 H (98-107) mmol/L Carbon Dioxide 23 (22-30) mmol/L BUN 30 H (9-20) mg/dL Creatinine 1.04 (0.66-1.25) mg/dL Glucose 94 (74-99) mg/dL Calcium 8.9 (8.4-10.2) mg/dL Adrenal panel 09/22/22 Range/Units 11:53 Sodium 140 (137-145) mmol/L Potassium 4.2 (3.5-5.1) mmol/L Chloride 110 H (98-107) mmol/L Carbon Dioxide 23 (22-30) mmol/L BUN 30 H (9-20) mg/dL Creatinine 1.04 (0.66-1.25) mg/dL Glucose 94 (74-99) mg/dL Calcium 8.9 (8.4-10.2) mg/dL Total Bilirubin 1.3 (0.2-1.3) mg/dL AST 29 (17-59) U/L ALT 40 (4-49) U/L Alkaline Phosphatase 105 (38-126) U/L Total Protein 6.7 (6.3-8.2) g/dL Albumin 3.8 (3.5-5.0) g/dL Assessment and Plan (1) GI bleed Narrative/Plan: 61-year-old male with rectal bleeding. Patient on anticoagulation. Apparently this needs to continue for now. We discussed the options of colonoscopy or observation. We'll continue with observation unless bleeding persists. In that event would hold anticoagulation and proceed with colonoscopy. Patient would like to go home today. This would be up to the patient's primary service. If no further bleeding May discharge and follow-up with Dr. Osorio for possible colonoscopy in the near future. Current Visit: Yes Status: Acute Code(s): K92.2 - GASTROINTESTINAL HEMORRHAGE, UNSPECIFIED SNOMED Code(s): 16511172
[2022-09-23 12:36] LABS: BUN/Creat Ratio 17.45 Ratio (12.00-20.00); Blood Urea Nitrogen 19.2 mg/dL (9.0-27.0); Calcium 8.4 mg/dL (8.7-10.3); Carbon Dioxide 19.8 mmol/L (21.6-31.8); Chloride 109 mmol/L (96-109); Glucose 87 mg/dL (70-110); Potassium 3.8 mmol/L (3.5-5.5); Sodium 141 mmol/L (135-145)
--- NOTE | 2022-09-23 13:22 | P.DS ---
Providers Date of admission: 09/22/22 13:47 Attending physician: Williams Shannon Consults: 09/22/22 16:01 Consult Physician Routine Consulting Provider: Yariel Osorio Consult Reason/Comments: GI Bleed Do you want consulting provider notified?: Yes Primary care physician: [facility] Course: 61-year-old male came in with a 2 episodes of bright red blood per rectum about the 20-30 mL each time, had a recent ablation procedure for which patient is on anticoagulation with Eliquis, patient's hemoglobin is 14.5. Patient is also on aspirin twice a day although doesn't have any coronary artery disease history. 09/23/2022 Patient doesn't have any significant episodes of GI bleed. Patient was evaluated by general surgery, cleared for discharge patient . Patient's anticoagulation will be continued but Aspinall were discontinued. Dose of beta felicitas was cut down and the clonidine was weaned off due to bradycardia. PHYSICAL EXAMINATION: GENERAL: The patient is alert and oriented x3, not in any acute distress. Well developed, well nourished. HEENT: Pupils are round and equally reacting to light. EOMI. No scleral icterus. No conjunctival pallor. Normocephalic, atraumatic. No pharyngeal erythema. No thyromegaly. CARDIOVASCULAR: S1 and S2 present. No murmurs, rubs, or gallops. PULMONARY: Chest is clear to auscultation, no wheezing or crackles. ABDOMEN: Soft, nontender, nondistended, normoactive bowel sounds. No palpable organomegaly. MUSCULOSKELETAL: No joint swelling or deformity. EXTREMITIES: No cyanosis, clubbing, or pedal edema. NEUROLOGICAL: Gross neurological examination did not reveal any focal deficits. SKIN: No rashes. Assessment and plan 1 acute lower GI bleed: Either hemorrhoidal or diverticular, neurosurgery consult. Patient will be continued on Eliquis, as per cardiology , no more episodes of lower GI bleed after discontinue additional for aspirin patient the home dose of aspirin will be discontinued patient will continue rest of the a nticoagulation -Gastroesophageal reflux disease -Hypertension -History of atrial fibrillation status post ablation presently sinus rhythm Plan - Discharge Summary Discharge Rx Participant: Yes New Discharge Prescriptions: Continue Aspirin 81 mg PO BID Omeprazole 40 mg PO BID Multivit-Min/FA/Lycopen/Lutein [Centrum Silver Men Tablet] 1 tab PO DAILY buPROPion HCL [Wellbutrin SR] 200 mg PO DAILY Apixaban [Eliquis] 5 mg PO BID #60 tab Atorvastatin [Lipitor] 20 mg PO HS #30 tab QUEtiapine FUMARATE [SEROquel XR] 300 mg PO HS #1 tab lamoTRIgine 200 mg PO HS Losartan [Cozaar] 25 mg PO HS Changed Metoprolol Tartrate [Lopressor] 25 mg PO BID #0 Discontinued cloNIDine HCL 0.1 mg PO BID Discharge Medication List Aspirin 81 mg PO BID 04/25/18 [History] Omeprazole 40 mg PO BID 07/10/22 [History] buPROPion HCL [Wellbutrin SR] 200 mg PO DAILY 07/13/22 [History] Apixaban [Eliquis] 5 mg PO BID #60 tab 07/15/22 [Rx] Atorvastatin [Lipitor] 20 mg PO HS #30 tab 07/15/22 [Rx] QUEtiapine FUMARATE [SEROquel XR] 300 mg PO HS #1 tab 08/08/22 [Rx] Multivit-Min/FA/Lycopen/Lutein [Centrum Silver Men Tablet] 1 tab PO DAILY 09/01/22 [History] lamoTRIgine 200 mg PO HS 09/01/22 [History] Losartan [Cozaar] 25 mg PO HS 09/22/22 [History] Metoprolol Tartrate [Lopressor] 25 mg PO BID #0 09/23/22 [Rx] Follow up Appointment(s)/Referral(s): Ame Abreu MD [STAFF PHYSICIAN] - 3 Days Clarence William MD [STAFF PHYSICIAN] - 1 Week Discharge Disposition: HOME SELF-CARE
== END 2022-09-23 13:21 | disposition home or self-care (01) ==
LOC: EC 11:03 → 6NMEDSUR 13:47
PROVIDERS: ADMIT Internal Medicine; ATTEND Internal Medicine
DX: K62.5 Hemorrhage of anus and rectum (principal); R00.1 Bradycardia, unspecified; T46.5X5A Adverse effect of other antihypertensive drugs, initial encounter; I48.91 Unspecified atrial fibrillation; I10 Essential (primary) hypertension; I48.92 Unspecified atrial flutter; K21.9 Gastro-esophageal reflux disease without esophagitis; F32.A Depression, unspecified; Z79.01 Long term (current) use of anticoagulants; Z79.82 Long term (current) use of aspirin; Z79.899 Other long term (current) drug therapy; Z90.49 Acquired absence of other specified parts of digestive tract; Z98.1 Arthrodesis status; Z98.890 Other specified postprocedural states; Z87.891 Personal history of nicotine dependence; Z80.9 Family history of malignant neoplasm, unspecified
CPT/HCPCS: 96361 ×3; 96360; 99285; 36415; 93005; 86900; 86901; 80053; 80048; 83735; 84484; 85025; 85027; 85610; 85730; 86850; G0378 ×2; S0106

== ENCOUNTER → 2023-07-20 | Outpatient (CLI) | payer MEDICARE ==
--- NOTE | 2023-07-20 17:10 | CTL ---
EXAMINATION TYPE: CT Low Dose Lung DATE OF EXAM ORDERED: 07/20/2023 HISTORY: Lung cancer screening CT DLP: 134.[address] CTDI: 3.5 mGy Automated exposure control for dose reduction was used. COMPARISON: 04/21/2022 TECHNIQUE: Low dose computed tomography scan was performed through the chest at 1 mm thick sections a nd reconstructed images in multiple planes at 1 mm and [address] DIAGNOSTIC QUALITY: Satisfactory FINDINGS: There are scattered stable micronodules but no suspicious or new lung mass or nodule. There is no abnormal airspace/consolidative density or abnormal interstitial density. There is no pleural effusion, pleural thickening or pneumothorax. There is stable borderline mild aneurysmal dilatation of the ascending thoracic aorta which measures 4 cm.The heart is not enlarged. There is no mediastinal, hilar or axillary adenopathy. Limited scanning through the upper abdomen reveals cholecystectomy and post surgical changes involvin g the stomach and GE junction. The osseous structures are intact IMPRESSION: 1. Lung RADS category 2 benign. Continue routine screening at yearly intervals. 2. Stable borderline 4 cm enlargement of the ascending thoracic aorta. 3. No acute cardiopulmonary disease.
== END | disposition home or self-care (01) ==
LOC: RADCTMAIN 16:14
PROVIDERS: ATTEND Family Medicine
DX: Z12.2 Encounter for screening for malignant neoplasm of respiratory organs (principal); I77.810 Thoracic aortic ectasia; Z87.891 Personal history of nicotine dependence
CPT/HCPCS: 71271

== ENCOUNTER 2024-03-28 23:30 | Emergency (ER) | payer MEDICARE ==
[2024-03-28 23:34] VITALS: PULSE 90; TEMP 98.2
--- NOTE | 2024-03-28 23:45 | ED ---
Wound/Laceration HPI - General Chief Complaint: Wound/Laceration Stated Complaint: Rt thumb lac Time Seen by Provider: 03/28/24 23:35 Source: patient, RN notes reviewed Mode of arrival: ambulatory Limitations: no limitations - History of Present Illness Initial Comments: This is a 63-year-old male presenting to the emergency department for chief complaint of a skin avulsion to the right thumb that occurred approximately 8 hours prior to arrival. Patient states that he was using a mandolin to slice potatoes when he accidentally sliced his right distal thumb. Attempted to control bleeding at home however was unsuccessful. He denies paresthesias to the digit. Unaware when last tetanus vaccination was. No other acute complaints at this time. - Related Data Home Medications Medication Instructions Recorded Confirmed Aspirin 81 mg PO BID 04/25/18 09/22/22 Omeprazole 40 mg PO BID 07/10/22 09/22/22 buPROPion HCL [Wellbutrin SR] 200 mg PO DAILY 07/13/22 09/22/22 Mv-Min/Folic/K1/Lycopen/Lutein 1 tab PO DAILY 09/01/22 09/22/22 [Centrum Silver Men Tablet] lamoTRIgine 200 mg PO HS 09/01/22 09/22/22 Losartan [Cozaar] 25 mg PO HS 09/22/22 09/22/22 Previous Rx's Medication Instructions Recorded Apixaban [Eliquis] 5 mg PO BID #60 tab 07/15/22 Atorvastatin [Lipitor] 20 mg PO HS #30 tab 07/15/22 QUEtiapine FUMARATE [SEROquel XR] 300 mg PO HS #1 tab 08/08/22 Metoprolol Tartrate [Lopressor] 25 mg PO BID #0 09/23/22 Allergies Allergy/AdvReac Type Severity Reaction Status Date / Time No Known Allergies Allergy Verified 03/28/24 23:34 Review of Systems ROS Statement: Those systems with pertinent positive or pertinent negative responses have been documented in the HPI. ROS Other: All systems not noted in ROS Statement are negative. Past Medical History Past Medical History: Atrial Flutter, GERD/Reflux, Hyperlipidemia, Sleep Apnea/CPAP/BIPAP Additional Past Medical History / Comment(s): SLEEP APNEA-NO MACHINE, hiatal hernia History of Any Multi-Drug Resistant Organisms: None Reported Past Surgical History: Cholecystectomy, Orthopedic Surgery Additional Past Surgical History / Comment(s): CERVICAL FUSION, "WRAP " FOR GERD (DEIDRE). RIGHT KNEE ARTHROSCOPY., cardiac conversion Past Anesthesia/Blood Transfusion Reactions: No Reported Reaction Past Psychological History: Depression Smoking Status: Former smoker Past Alcohol Use History: None Reported Past Drug Use History: None Reported - Past Family History Mother Family Medical History: Cancer Father Family Medical History: Cancer General Exam Limitations: no limitations General appearance: alert, in no apparent distress Neck exam: Present: normal inspection. Absent: tenderness, meningismus, lymphadenopathy Respiratory exam: Present: normal lung sounds bilaterally. Absent: respiratory distress, wheezes, rales, rhonchi, stridor Cardiovascular Exam: Present: regular rate, normal rhythm, normal heart sounds. Absent: systolic murmur, diastolic murmur, rubs, gallop, clicks GI/Abdominal exam: Present: soft, normal bowel sounds. Absent: distended, tenderness, guarding, rebound, rigid Right Hand Wrist exam: Present: laceration (2 cm) Neuro motor exam: Present: wrist extension intact, thumb opposition intact Vascular: Present: normal capillary refill, radial pulse (2+). Absent: vascular compromise Back exam: Present: normal inspection Course Vital Signs 03/28/24 03/29/24 23:31 00:36 Temperature 98.2 F Pulse Rate 90 90 Respiratory 22 18 Rate Blood Pressure 137/87 134/90 O2 Sat by Pulse 96 98 Oximetry Procedures - Laceration Laceration #1 Consent Obtained: verbal consent Indication: laceration Site: hand Description: avulsion Depth: simple, single layer Anesthetic Used: lidocaine 1% Anesthesia Technique: local infiltration, nerve block Amount (mls): 4 Pre-repair: wound explored, irrigated extensively Type of Sutures: nylon Size of Sutures: 4-0 Number of Sutures: 3 Technique: simple, interrupted Patient Tolerated Procedure: well, no complications - Nerve Block Consent Obtained: verbal consent Local Anesthetic Used: Lidocaine 1% Side: right Nerve Blocks: digital Patient Tolerated Procedure: well, no complications Medical Decision Making - Medical Decision Making Was pt. sent in by a medical professional or institution (, PA, PERSONAL PROTECTION SPECIALIST, urgent care, hospital, or [place] [facility] facility...) When possible be specific @ -No Did you speak to anyone other than the patient for history (EMS, parent, family, police, friend...)? What history was obtained from this source @ -No Did you review nursing and triage notes (agree or disagree)? Why? @ -I reviewed and agree with nursing and triage notes Were old charts reviewed (outside hosp., previous admission, EMS record, old EKG, old radiological studies, urgent care reports/EKG's, [place] [facility] facility records)? Report findings @ -No old charts were reviewed Differential Diagnosis (chest pain, altered mental status, abdominal pain women, abdominal pain men, vaginal bleeding, weakness, fever, dyspnea, syncope, headache, dizziness, GI bleed, back pain, seizure, CVA, palpatations, mental health, musculoskeletal)? @ -Laceration, skin avulsion, this list not all inclusive EKG interpreted by me (3pts min.). @ -None X-rays interpreted by me (1pt min.). @ -None done CT interpreted by me (1pt min.). @ -None done U/S interpreted by me (1pt. min.). @ -None done What testing was considered but not performed or refused? (CT, X-rays, U/S, labs)? Why? @ -None What meds were considered but not given or refused? Why? @ -None Did you discuss the management of the patient with other professionals (professionals i.e. , PA, PERSONAL PROTECTION SPECIALIST, lab, RT, psych nurse, social services specialist, environmental director, teacher, security control room officer, case fitter)? Give summary @ -No Was smoking cessation discussed for >3mins.? @ -No Was critical care preformed (if so, how long)? @ -No Were there social determinants of health that impacted care today? How? (Homelessness, low income, unemployed, alcoholism, drug addiction, transportation, low edu. Level, literacy, decrease access to med. care, nursing home, rehab)? @ -No Was there de-escalation of care discussed even if they declined (Discuss DNR or withdrawal of care, Hospice)? DNR status @ -No What co-morbidities impacted this encounter? (DM, HTN, Smoking, COPD, CAD, Cancer, CVA, ARF, Chemo, Hep., AIDS, mental health diagnosis, sleep apnea, morbid obesity)? @ -None Was patient admitted / discharged? Hospital course, mention meds given and route, prescriptions, significant lab abnormalities, going to OR and other pertinent info. @ -[Discharge. 63-year-old male presenting with skin avulsion to the right distal fingertip. Area was cleansed with Betadine and sterile water. Nerve block successful with lidocaine. 3 simple interrupted sutures were placed with the distal thumb. Suture care discussed with patient. Discussed with Dr. Jenkins Undiagnosed new problem with uncertain prognosis? @ -No Drug Therapy requiring intensive monitoring for toxicity (Heparin, Nitro, Insulin, Cardizem)? @ -No Were any procedures done? @ -Suture placement Diagnosis/symptom? @ -skin avulsion Acute, or Chronic, or Acute on Chronic? @ -acute Uncomplicated (without systemic symptoms) or Complicated (systemic symptoms)? @ -uncomplicated Side effects of treatment? @ -No Exacerbation, Progression, or Severe Exacerbation? @ -No Poses a threat to life or bodily function? How? (Chest pain, [place], [place], pneumonia, PE, COPD, DKA, ARF, appy, cholecystitis, CVA, Diverticulitis, Homicidal, Suicidal, threat to staff... and all critical care pts) @ -No Disposition Clinical Impression: Laceration Disposition: HOME SELF-CARE Condition: Good Instructions (If sedation given, give patient instructions): Care For Your Stitches (ED) Additional Instructions: Please return to the Emergency Department if symptoms worsen or any other concerns. Is patient prescribed a controlled substance at d/c from ED?: No Referrals: Shanon Abreu DO [Primary Care Provider] - 1-2 days Time of Disposition: 00:27
[2024-03-28] MEDS: DIPH,PERTUS(ACELL)TETVAC-LF 0.5 ML VIAL IM ONE (23:58)
[2024-03-29] MEDS: LIDOCAINE 1% INJ 10MG/ML (20 ML MDV) SQ ONE (00:02)
[2024-03-29 00:37] VITALS: BP 134/90; RESP 18
== END 2024-03-29 00:41 | disposition home or self-care (01) ==
LOC: EC 23:30
DX: S61.011A Laceration without foreign body of right thumb without damage to nail, initial encounter (principal); Z87.891 Personal history of nicotine dependence; Z23 Encounter for immunization; W27.4XXA Contact with kitchen utensil, initial encounter
CPT/HCPCS: 99282; 90471; 12001; 90715; J2003